=== PATIENT | female | born 1960 | race Caucasian/White ===

== ENCOUNTER 2023-03-06 14:44 | Outpatient (OUT) | payer OTHER, SELFPAY ==
--- NOTE | 2023-03-06 15:10 | XR_ITS ---
[address] [address] Patient Name: JOSH HANKINS MRN: [id number] date: 1960 Sex: F Assigned Patient Location: [facility] Current Patient Location: Accession/Order Number: [id number] Exam Date: 03/06/2023 15:02 Report Date: 03/07/2023 05:52 At the request of: ADAM MCKEON Procedure: XR knee RT 3V PROCEDURE: XR knee RT 3V COMPARISON: None. HISTORY: Right knee joint pain M25.561 FINDINGS: BONES:No acute fracture or dislocation. Moderate tricompartmental osteoarthropathy with joint space narrowing and marginal osteophyte formation most significant in the medial compartment SOFT TISSUES:Negative. No visible soft tissue swelling. EFFUSION:Small suprapatellar joint effusion OTHER: Negative. IMPRESSION: Osteoarthritis with small joint effusion Electronically authenticated by: RASHID CANTRELL Date: 03/07/2023 05:52
== END 2023-03-06 14:45 | disposition home or self-care (01) ==
PROVIDERS: PCP Family Medicine; Visit Provider Family Medicine
DX: M25.561 Pain in right knee (principal); M17.11 Unilateral primary osteoarthritis, right knee; M25.461 Effusion, right knee
CPT/HCPCS: 73562

== ENCOUNTER 2023-08-12 12:58 | Outpatient (OUT) | payer OTHER, SELFPAY ==
[2023-08-12 13:45] LABS: Estimated Average Glucose 169 mg/dL; Glycohemoglobin A1C 7.5 % (4.5-6.2)
== END 2023-08-12 12:59 | disposition home or self-care (01) ==
LOC: LAB 13:00
PROVIDERS: PCP Family Medicine; Visit Provider Family Medicine
DX: E11.65 Type 2 diabetes mellitus with hyperglycemia (principal)
CPT/HCPCS: 36415; 83036

== ENCOUNTER 2023-09-06 13:53 | Outpatient (OUT) | payer OTHER, SELFPAY ==
--- NOTE | 2023-09-06 13:55 | MM_ITS ---
Patient Name: JOSH HANKINS MR#: [id number] : 1960 Exam Date: 09/06/2023 Ordering Doctor: DR Jaron Foote . RADIOLOGY REPORT PROCEDURE: MM TOMOSYNTHESIS SCREENING BI COMPARISON: MG MAMM SCREEN 3D SUDAR[facility]AN CAD, 05/29/2021. MG MAMM SCREEN 3D SUDARSHAN CAD, 08/07/2022. INDICATIONS: screening Calculator Name NCI Breast Cancer Risk Assessment Tool 5 Year Breast Cancer Risk 1.10% Lifetime Breast Cancer Risk 5.00% Personal Breast Cancer No Personal Ovarian Cancer No Treatments None Family Cancers Mother with uterine cancer at age 37; Grandmother-maternal with colon cancer at age 84. LOCATION: [facility] BREAST COMPOSITION: Heterogeneously dense,which may obscure small masses. FINDINGS: DIAGNOSTIC CATEGORY 0--INCOMPLETE: NEED ADDITIONAL IMAGING EVALUATION. Scattered benign-appearing calcifications are present. Scattered benign-appearing lymph nodes are present. RIGHT BREAST: No significant suspicious finding. LEFT BREAST: Interval increase in a cluster of ill-defined microcalcifications upper inner quadrant, mid breast. Spot magnification required. RECOMMENDATIONS: ADDITIONAL MAMMOGRAPHIC VIEWS REQUIRED: LEFT BREAST - spot magnification PLEASE NOTE: A NORMAL MAMMOGRAM DOES NOT EXCLUDE THE POSSIBILITY OF BREAST CANCER. A CLINICALLY SUSPICIOUS PALPABLE LUMP SHOULD BE BIOPSIED. Dictated by: Julian Tang MD on 09/06/2023 at 14:42 Approved by: Julian Tang MD on 09/06/2023 at 14:44
--- OUTSIDE RECORDS SUMMARY | 2023-09-06 13:58 | XMS_ITS | CCD ---
Author Name Unknown Address [address] [place] [address] Organization [facility] Care Team Providers Care Precision Grinder Name Role Phone SYEDA, ELENITA W Unavailable Unavailable SYEDA, ELENITA W Unavailable Unavailable SYEDA, ELENITA W Unavailable Unavailable SYEDA, ELENITA W Unavailable Unavailable SYEDA, ELENITA W Unavailable Unavailable SYEDA, ELENITA W Unavailable Unavailable SYEDA, ELENITA W Unavailable Unavailable WEST, DR RASHID Bledsoe Consulting Unavailable NADERER, DR ADAM Day Primary Care Unavailable NADERER, DR ADAM Day Admitting Unavailable NADERER, DR ADAM Day Attending Unavailable NADERER, DR ADAM Day Consulting Unavailable NADERER, DR ADAM Day Consulting Unavailable NADERER, DR ADAM Day Primary Care Unavailable NADERER, DR ADAM Day Admitting Unavailable NADERER, DR ADAM Day Attending Unavailable NADERER, DR ADAM Day Consulting Unavailable NADERER, DR ADAM Day Primary Care Unavailable NADERER, DR ADAM Day Admitting Unavailable NADERER, DR ADAM Day Attending Unavailable NASHUA, DR RASHID Bledsoe Consulting Unavailable NADERER, DR ADAM Day Primary Care Unavailable NADERER, DR ADAM Day Admitting Unavailable NADERER, DR ADAM Day Attending Unavailable NADERER, DR ADAM Day Consulting Unavailable NADERER, DR ADAM Day Attending Unavailable NADERER, DR ADAM Day Consulting Unavailable NADERER, DR ADAM Day Primary Care Unavailable NADERER, DR ADAM Day Admitting Unavailable Allergies Allergy Classification Reported Allergen(s) Allergy Type Date of Onset Reaction(s) Facility (2 sources) Penicillins; Translations: [PENICILLINS] Propensity to adverse reactions to drug (disorder) 7 [facility]OF [facility] Other [place] [facility] (1 source) Penicillin Drug Allergy [facility] Problems Active Problems Problem Classification Problem Date Documented Da te Episodic/Chronic Diabetes mellitus with complications (4 sources) Type 2 diabetes mellitus with hyperglycemia; Translations: [TYPE 2 DM W/HYPERGLYCEMIA] Onset: 07-18-2022 Chronic Past or Other Problems Problem Classification Problem Date Documented Da te Episodic/Chronic Other connective tissue disease (1 source) Peroneal tendinitis, left leg; Translations: [Peroneal tendinitis, left leg] Onset: 09-01-2017 Episodic Other connective tissue disease (4 sources) Pain in left foot; Translations: [PAIN IN LEFT FOOT] Onset: 01-18-2022 Episodic Other screening for suspected conditions (not mental disorders or infectious disease) (4 sources) Encounter for screening mammogram for malignant neoplasm of breast; Translations: [ENC SCR MAMMO MALIG NEOPLASM BREAST] Onset: 08-07-2022 Episodic Residual codes; unclassified (1 source) Family history of malignant neoplasm of digestive organs; Translations: [FAM HX MALIG NEOPLASM DIGESTIV ORGN] Onset: 08-11-2022 Episodic Residual codes; unclassified (1 source) Family history of malignant neoplasm of other organs or systems; Translations: [FAM HX MALIG NEOPLASM OTH ORGN/SYS] Onset: 08-11-2022 Episodic Results Test Name Value Interpretation Reference Range Facility CBC AUTO DIFFon 01-15-2023 BASO # 0.0 103/ul Normal 0.0-0.1 [facility] Comment on above: Performed By: #### C BC #### [facility] [address] [place] [address] Dr. Angelo Ballesteros Basophils/100 WBC (Bld) 0.1 % Critically low 0.2-2.0 [facility] Comment on above: Performed By: #### C BC #### [facility] [address] [place] [address] Dr. Angelo Ballesteros EO # 0.0 103/ul Normal 0.0-0.7 [facility] Comment on above: Performed By: #### C BC #### [facility] [address] [place] [address] Dr. Angelo Ballesteros Eosinophils/100 WBC (Bld) 0.0 % Critically low 0.9-7.0 [facility] Comment on above: Performed By: #### C BC #### [facility] [address] [place] [address] Dr. Angelo Ballesteros Erythrocyte distribution width (RBC) [Ratio] 13.3 % Normal 11.0-15.0 [facility] Comment on above: Performed By: #### C BC #### [facility] [address] [place] [address] Dr. Angelo Ballesteros Hematocrit (Bld) [Volume fraction] 44.3 % Normal 36.0-48.0 [facility] Comment on above: Performed By: #### C BC #### [facility] [address] [place] [address] Dr. Angelo Ballesteros Hemoglobin (Bld) [Mass/Vol] 14.4 g/dL Normal 12.0-16.0 [facility] Comment on above: Performed By: #### C BC #### [facility] [address] [place] [address] Dr. nAgelo Ballesteros IG # 0.02 10e3/ul Normal 0.00-0.03 [facility] Comment on above: Performed By: #### C BC #### [facility] [address] [place] [address] Dr. Angelo Ballesteros IG % 0.3 % Normal 0.0-0.5 [facility] Comment on above: Performed By: #### C BC #### [facility] [address] [place] [address] Dr. Angelo Ballesteros LYMPH # 3.3 103/ul Normal 1.2-3.8 [facility] Comment on above: Performed By: #### C BC #### [facility] [address] [place] [address] Dr. Angelo Ballesteros Lymphocytes/100 WBC (Bld) 41.8 % Normal 20.5-60.0 [facility] Comment on above: Performed By: #### C BC #### [facility] [address] [place] [address] Dr. Angelo Ballesteros MANUAL DIFF REQ NO Normal [facility] Comment on above: Performed By: #### C BC #### [facility] [address] [place] [address] Dr. Angelo Ballesteros MCH (RBC) [Entitic mass] 30.1 pg Normal 26.7-34.0 [facility] Comment on above: Performed By: #### C BC #### [facility] [address] [address] [address] Angelo Ballesteros MCHC (RBC) [Mass/Vol] 32.5 g/dL Normal 29.9-35.2 [facility] Comment on above: Performed By: #### C BC #### [facility] [address] [address] [address] Angelo Ballesteros MCV (RBC) [Entitic vol] 92.5 fL Normal 81.0-99.0 [facility] Comment on above: Performed By: #### C BC #### [facility] [address] [place] [address] Dr. Angelo Ballesteros MONO # 0.6 103/ul Normal 0.3-0.8 [facility] Comment on above: Performed By: #### C BC #### [facility] [address] [place] [address] Dr. Angelo Ballesteros Monocytes/100 WBC (Bld) 7.1 % Normal 1.7-12.0 [facility] Comment on above: Performed By: #### C BC #### [facility] [address] [place] [address] Dr. Angelo Ballesteros NEUT # 4.1 103/ul Normal 1.4-6.5 [facility] Comment on above: Performed By: #### C BC #### [facility] [address] [place] [address] Dr. Angelo Ballesteros Neutrophils/100 WBC (Bld) 50.7 % Normal 43.0-75.0 [facility] Comment on above: Performed By: #### C BC #### [facility] [address] [address] [address] Angelo Ballesteros Platelet mean volume (Bld) [Entitic vol] 10.6 fL Normal 9.5-13.5 [facility] Comment on above: Performed By: #### C BC #### [facility] [address] [place] [address] Dr. Angelo Ballesteros PLT 294 103/ul Normal 150-450 [facility] Comment on above: Performed By: #### C BC #### [facility] [address] [place] [address] Dr. Angelo Ballesteros RBC 4.79 106/ul Normal 4.20-5.40 [facility] Comment on above: Performed By: #### C BC #### [facility] [address] [place] [address] Dr. Angelo Ballesteros WBC 8.0 103/ul Normal 4.0-11.0 [facility] Comment on above: Performed By: #### C BC #### [facility] [address] [place] [address] Dr. Angelo Ballesteros GLYCOHEMOGLOBIN A1Con 2022 ADA RECOMMENDATION SEE BELOW Normal [facility] Comment on above: Result Comment: ADA RECOMMENDED LIMIT 4.0 - 6.0 ADA THERAPEUTIC TARGET < 7.0 ACTION SUGGESTED > 7.0 Performed By: #### A 1C #### [facility] [address] [place] [address] Dr. Angelo Ballesteros Glucose [Mass/Vol] 160 mg/dL Normal [facility] Comment on above: Performed By: #### A 1C #### [facility] [address] [place] [address] Dr. Angelo Ballesteros HbA1c (Bld) [Mass fraction] 7.2 % Critically high 4.5-6.2 [facility] Comment on above: Performed By: #### A 1C #### [facility] [address] [place] [address] Dr. Angelo Ballesteros LIPID PROFILEon 01-15-2023 CHOL-HDL RATIO NORM SEE BELOW Normal [facility] Comment on above: Result Comment: 3.3 - 4.4 LOW RISK 4.4 - 7.1 AVERAGE RISK 7.1 - 11.0 MODERATE RISK >11.0 HIGH RISK Performed By: #### T SH, LIVER, BMP, LIPID #### [facility] [address] [place] [address] Dr. Angelo Ballesteros Cholesterol [Mass/Vol] 219 mg/dL Critically high <=200 [facility] Comment on above: Performed By: #### T SH, LIVER, BMP, LIPID #### [facility] [address] [address] [address] Angelo Ballesteros Cholesterol in HDL [Mass/Vol] 41 mg/dL Normal 40-60 [facility] Comment on above: Performed By: #### T SH, LIVER, BMP, LIPID #### [facility] [address] [address] [address] Angelo Ballesteros Cholesterol in LDL [Mass/Vol] 100.6 mg/dL Normal [facility] Comment on above: Performed By: #### T SH, LIVER, BMP, LIPID #### [facility] [address] [address] [address] Angelo Ballesteros Cholesterol.total/ Cholesterol in HDL [Mass ratio] 5.3 {ratio} Normal [facility] Comment on above: Performed By: #### T SH, LIVER, BMP, LIPID #### [facility] [address] [address] [address] Angelo Ballesteros HDL NORMAL > or = 60 mg/dl - LO W CARDIOVASCULAR RISK <40 mg/dl - HIGH CARDIOVASCULAR RISK Normal [facility] Comment on above: Performed By: #### T SH, LIVER, BMP, LIPID #### [facility] [address] [address] [address] Angelo Ballesteros LDL CALC NORMAL SEE BELOW Normal [facility] Comment on above: Result Comment: <100 mg/dl OPTIMAL 100 - 129 mg/dl NEAR OR ABOVE OPTIMAL 130 - 159 mg/dl BORDERLINE HIGH 160 - 189 mg/dl HIGH >190 mg/dl VERY HIGH Performed By: #### T SH, LIVER, BMP, LIPID #### [facility] [address] [address] [address] Angelo Ballesteros Triglyceride [Mass/Vol] 387 mg/dL Critically high <=150 [facility] Comment on above: Performed By: #### T SH, LIVER, BMP, LIPID #### [facility] [address] [address] [address] Angelo Ballesteros VLDL CALC 77.4 mg/dL Normal [facility] Comment on above: Performed By: #### T SH, LIVER, BMP, LIPID #### [facility] [address] [address] [address] Angelo Ballesteros LIVER PROFILEon 01-15-2023 Albumin [Mass/Vol] 3.7 g/dL Normal 3.4-5.0 [facility] Comment on above: Performed By: #### T SH, LIVER, BMP, LIPID #### [facility] [address] [address] [address] Angelo Ballesteros Albumin/Globulin [Mass ratio] 1.1 {ratio} Normal [facility] Comment on above: Performed By: #### T SH, LIVER, BMP, LIPID #### [facility] [address] [address] [address] Angelo Ballesteros ALP [Catalytic activity/Vol] 64 U/L Normal 46-116 [facility] Comment on above: Performed By: #### T SH, LIVER, BMP, LIPID #### [facility] [address] [address] [address] Angelo Ballesteros ALT [Catalytic activity/Vol] 24 U/L Normal 14-59 [facility] Comment on above: Performed By: #### T SH, LIVER, BMP, LIPID #### [facility] [address] [address] [address] Angelo Ballesteros AST [Catalytic activity/Vol] 17 U/L Normal 15-37 [facility] Comment on above: Performed By: #### T SH, LIVER, BMP, LIPID #### [facility] [address] [address] [address] Angelo Ballesteros BILI, CONJUGATED 0.1 mg/dL Normal 0.0-0.2 [facility] Comment on above: Performed By: #### T SH, LIVER, BMP, LIPID #### [facility] [address] [address] [address] Angelo Ballesteros Bilirubin [Mass/Vol] 0.3 mg/dL Normal 0.2-1.0 [facility] Comment on above: Performed By: #### T SH, LIVER, BMP, LIPID #### [facility] [address] [address] [address] Angeol Ballesteros Globulin (S) [Mass/Vol] 3.3 g/dL Normal [facility] Comment on above: Performed By: #### T SH, LIVER, BMP, LIPID #### [facility] [address] [address] [address] Angelo Ballesteros Protein [Mass/Vol] 7.0 g/dL Normal 6.4-8.2 [facility] Comment on above: Performed By: #### T SH, LIVER, BMP, LIPID #### [facility] [address] [address] [address] Angelo Ballesteros PROF CHEM 8 (BAS METB)on Anion gap [Moles/Vol] 13.7 mmol/L Normal [facility] Comment on above: Performed By: #### T SH, LIVER, BMP, LIPID #### [facility] [address] [place] [address] Dr. Angelo Ballesteros Calcium [Mass/Vol] 8.4 mg/dL Critically low 8.5-10.1 [facility] Comment on above: Performed By: #### T SH, LIVER, BMP, LIPID #### [facility] [address] [place] [address] Dr. Angelo Ballesteros Chloride [Moles/Vol] 105 mmol/L Normal 98-107 [facility] Comment on above: Performed By: #### T SH, LIVER, BMP, LIPID #### [facility] [address] [place] [address] Dr. Angelo Ballesteros CO2 [Moles/Vol] 27.0 mmol/L Normal 21.0-32.[address] [facility] Comment on above: Performed By: #### T SH, LIVER, BMP, LIPID #### [facility] [address] [place] [address] Dr. Angelo Ballesteros Creatinine [Mass/Vol] 1.01 mg/dL Normal 0.55-1.02 [facility] Comment on above: Performed By: #### T SH, LIVER, BMP, LIPID #### [facility] [address] [place] [address] Dr. Angelo Ballesteros EGFR-AF CONGOLESE >60 Normal >=[address] [facility] Comment on above: Performed By: #### T SH, LIVER, BMP, LIPID #### [facility] [address] [address] [address] Angelo Ballesteros EGFR-NON AF CONGOLESE 56 mL/min/1.73m2 Critically low >=60 [facility] Comment on above: Performed By: #### T SH, LIVER, BMP, LIPID #### [facility] [address] [address] [address] Angelo Ballesteros Glucose [Mass/Vol] 109 mg/dL Critically high 74-106 [facility] Comment on above: Performed By: #### T SH, LIVER, BMP, LIPID #### [facility] [address] [address] [address] Angelo Ballesteros Potassium [Moles/Vol] 3.7 mmol/L Normal 3.5-5.1 [facility] Comment on above: Performed By: #### T SH, LIVER, BMP, LIPID #### [facility] [address] [address] [address] Angelo Ballesteros Sodium [Moles/Vol] 142 mmol/L Normal 136-145 [facility] Comment on above: Performed By: #### T SH, LIVER, BMP, LIPID #### [facility] [address] [address] [address] Angelo Ballesteros Urea nitrogen [Mass/Vol] 11.0 mg/dL Normal 7.0-18.0 [facility] Comment on above: Performed By: #### T SH, LIVER, BMP, LIPID #### [facility] [address] [place] [address] Dr. Angelo Ballesteros Urea nitrogen/Creatinin e [Mass ratio] 10.9 mg/mg Normal [facility] Comment on above: Performed By: #### T SH, LIVER, BMP, LIPID #### [facility] [address] [address] [address] Angelo Ballesteros TSHon 01-15-2023 TSH 1.845 uIU/mL Normal 0.358-3.[address] [facility] Comment on above: Performed By: #### T SH, LIVER, BMP, LIPID #### [facility] [address] [place] [address] Dr. Angelo Ballesteros MG MAMM SCREEN 3D SUDARSHAN CADon 08-07-2022 MG MAMM SCREEN 3D SUDARSHAN CAD Patient: MARYBETH VALDEZ Exam Date: 08/07/2022 : 1960 Gender:F Ordering : DR ADAM MCKEON . Admission #: [id number] Family : Order #: [id number] CLICK HERE TO VIEW EXAM RADIOLOGY REPORT PROCEDURE: MAMMOGRAM SCREENING 3D BILATERAL CAD COMPARISON: MG MAMM SCREEN 3D SUDARSHAN CAD, 05/13/2020. MG MAMM SCREEN 3D SUDARSHAN CAD, 05/29/2021. INDICATIONS: Screening mammography Calculator Name NCI Breast Cancer Risk Assessment Tool 5 Year Breast Cancer Risk 1.10% Lifetime Breast Cancer Risk 5.20% Personal Breast Cancer No Personal Ovarian Cancer No Treatments None Family Cancers Mother with uterine cancer at age 37; Grandmother-maternal with colon cancer at age 84. LOCATION: [facility] BREAST COMPOSITION: Heterogeneously dense,which may obscure small masses. FINDINGS: DIAGNOSTIC CATEGORY 2--BENIGN FINDING. NO CHANGE FROM COMPARISON. Scattered benign-appearing nodules are present. Scattered benign-appearing calcifications are present. Scattered benign-appearing lymph nodes are present. RIGHT BREAST: No significant suspicious finding. LEFT BREAST: No significant suspicious finding. Stable ill-defined nodule with calcifications 12 o'clock mid breast RECOMMENDATIONS: ROUTINE MAMMOGRAM AND CLINICAL EVALUATION IN 12 MONTHS. PLEASE NOTE: A NORMAL MAMMOGRAM DOES NOT EXCLUDE THE POSSIBILITY OF BREAST CANCER. A CLINICALLY SUSPICIOUS PALPABLE LUMP SHOULD BE BIOPSIED. Dictated by: Rashid Cantrell MD on 08/07/2022 at 15:44 Approved by: Rashid Cantrell MD on 08/07/2022 at 15:46 Normal [facility] GLYCOHEMOGLOBIN A1Con 2021 ADA RECOMMENDATION SEE BELOW Normal [facility] Comment on above: Result Comment: ADA RECOMMENDED LIMIT 4.0 - 6.0 ADA THERAPEUTIC TARGET < 7.0 ACTION SUGGESTED > 7.0 Performed By: #### A 1C #### [facility] [address] [address] [address] Angelo Ballesteros Glucose [Mass/Vol] 197 mg/dL Normal [facility] Comment on above: Performed By: #### A 1C #### [facility] [address] [address] [address] Angelo Ballesteros HbA1c (Bld) [Mass fraction] 8.5 % Critically high 4.5-6.2 [facility] Comment on above: Performed By: #### A 1C #### [facility] [address] [address] [address] Angelo Ballesteros GLYCOHEMOGLOBIN A1Con 2021 ADA RECOMMENDATION SEE BELOW Normal [facility] Comment on above: Result Comment: ADA RECOMMENDED LIMIT 4.0 - 6.0 ADA THERAPEUTIC TARGET < 7.0 ACTION SUGGESTED > 7.0 Performed By: #### A 1C #### [facility] [address] [address] [address] Angelo Ballesteros Glucose [Mass/Vol] 194 mg/dL Normal [facility] Comment on above: Performed By: #### A 1C #### [facility] [address] [address] [address] Angelo Ballesteros HbA1c (Bld) [Mass fraction] 8.4 % Critically high 4.5-6.2 [facility] Comment on above: Performed By: #### A 1C #### [facility] [address] [address] [address] Angelo Ballesteros Initial Visit (Pain Medicine )on 07-01-2019 Initial Visit (Pain Medicine) Chief Complaint Ankle Pain left ankle pain...Surgery in 2017 for fractured ankle..Has had ankle pain for past 4 years x rays april 2019 PT done Summer [address] Daphne Hameed History of Present Illness On a scale of 0 to 10, the patient rates the pain at 8. Pain Location: and l ankle. Pain Quality: Aching and Sharp. Timing/Duration: Constant. Exacerbating Factors: motion and weightbearing. Alleviating Factors: Cold Therapy. The patient is being seen for a consultation regarding and perineal tendonitis back pain. The etiology is perineal ten. This condition is injury related. The injury occurred at home. Since the last pain clinic visit the patient was seen by a primary care provider. Pain scores include a current pain level of 8/10, an average pain level of 7/10 and a minimum pain level of 4/10. Original fracture of the left ankle happen in 2014 was treated conservatively for 6 month in a cast and then the patient was operated on in 2017 twice on the left ankle started to surgery the patient continued to have a significant amount of pain in the left ankle pain is localized around the lateral malleolus with tightness from the midshaft of the leg down to the toes and describe some swelling around the left foot without any changes in coloration scribing some hypersensitivity to a simple touch around the lateral aspect of her ankle and foot tried on physical therapy without any significant improvement she still uses a TENS unit without any significant improvement she wears compression stockings without benefit doing cupping without any significant improvement was tried on gabapentin without any significant improvement and Motrin without any significant improvement. Rating her pain at the level of 7 out of 10. Currently the patient is on tramadol 50 mg averaging 3 or 4 pills in a week There are no spiritual/cultural practices/values/needs that are important to know Initial Fall Risk Screening: MARYBETH has fallen in the last 6 months. She has fallen due to lost balance carrying stack of TV tables. Her fall resulted in the following injury: sprained toes. She does not need assistance with sitting, standing or walking. Does not need assistance walking in her home. She does not need assistance in an unfamiliar setting. Advance directives: Living Will: No living will on file. Healthcare POA: No healthcare proxy on file. Domestic Violence Screen: Does not feel threatened or abused physically, emotionally or sexually. Do you feel UNSAFE? The patient feels safe in the home. Depression/Suicide Screening: During the past 2 weeks, the patient has not felt down, depressed or hopeless. During the past 2 weeks, the patient has not felt little interest or pleasure in doing things. She has no thoughts of harming self. She has not had thoughts of harming others. Nutrition Screening: In the past month, there was not a day when I or anyone in my family went hungry because there was not enough food. Patient Education: The patient denies that they or the person with them has problems with hearing, speaking, seeing, moving around or learning Review of Systems 12 Systems have been reviewed as follows. Constitutional: Fever, weight gain, weight loss, appetite change, night sweats, fatigue, chills. Eyes : blurry, double vision, vision, loss, tearing, redness, pain, sensitivity to light, glaucoma. Ears, nose, mouth, and throat: Hearing loss, ringing in the ears, ear pain, nasal congestion, nasal drainage, nosebleeds, mouth, throat, irritation tooth problem. Cardiovascular :chest pain, pressure, heart tracing,palpitations , sweating, leg swelling, high or low blood pressure Pulmonary: Cough, yellow or green sputum, blood and sputum, shortness of breath, wheezing Gastrointestinal: Nausea, vomiting, diarrhea, constipation, pain, blood in stool, or vomitus, heartburn, difficulty swallowing Genitourinary: incontinence, abnormal bleeding, abnormal discharge, urinary frequency, urinary hesitancy, pain, impotence sexual problem, infection, urinary retention Musculoskeletal: Pain, stiffness, joint, redness or warmth, arthritis, back pain, weakness, muscle wasting, sprain or fracture Neuro: Weight weakness, dizziness, change in voice, change in taste change in vision, change in hearing, loss, or change of sensation, trouble walking, balance problems coordination problems, shaking, speech problem Endocrine , cold or heat intolerance, blood sugar problem, weight gain or loss missed periods hot flashes, sweats, change in body hair, change in libido, increased thirst, increased urination Heme/lymph: Swelling, bleeding, problem anemia, bruising, enlarged lymph nodes Allergic/immunologic: H. plus nasal drip, watery itchy eyes, nasal drainage, immunosuppressed The above, were reviewed and noted negative except as noted. Past Medical History History of depression (V11.8) (Z86.59) History of fibromyalgia (V13.59) (Z87.39) History of hypertension (V12.59) (Z86.79) History of mitral valve prolapse (V12.59) (Z86.79) Family History Family history of cardiac disorder (V17.49) (Z82.49) Family history of hypertension (V17.49) (Z82.49) Family history of malignant neoplasm (V16.9) (Z80.9) Social History Social alcohol use (Z78.9) Allergies Penicillins Recorded By: Sade Vasquez; 07/01/2019 1:43:49 PM Current Meds ALPRAZolam 0.5 MG Oral Tablet; Therapy: (Recorded:01Jul2019) to Recorded Dispense: 0 Days ; #: Sufficient; Refill: 0; SYDNIE = N; Record; Last Updated By: Sade Vasquez; 07/01/2019 1:43:49 PM Ambien 10 MG Oral Tablet; Therapy: (Recorded:01Jul2019) to Recorded Dispense: 0 Days ; #: Sufficient; Refill: 0; SYDNIE = N; Record; Last Updated By: Sade Vasquez; 07/01/2019 1:43:49 PM busPIRone HCl - 15 MG Oral Tablet; Therapy: (Recorded:01Jul2019) to Recorded Dispense: 0 Days ; #: Sufficient; Refill: 0; SYDNIE = N; Record; Last Updated By: Sade Vasquez; 07/01/2019 1:43:49 PM cloNIDine HCl - 0.2 MG Oral Tablet; Therapy: (Recorded:01Jul2019) to Recorded Dispense: 0 Days ; #: Sufficient; Refill: 0; SYDNIE = N; Record; Last Updated By: Sade Vasquez; 07/01/2019 1:43:49 PM Effexor 75 MG TABS; Therapy: (Recorded:01Jul2019) to Recorded Dispense: 0 Days ; #: Sufficient; Refill: 0; SYDNIE = N; Record; Last Updated By: Sade Vasquez; 07/01/2019 1:43:49 PM hydroCHLOROthiazide 25 MG Oral Tablet; Therapy: (Recorded:01Jul2019) to Recorded Dispense: 0 Days ; #: Sufficient; Refill: 0; SYDNIE = N; Record; Last Updated By: Sade Vasquez; 07/01/2019 1:43:49 PM Metoprolol Tartrate 100 MG Oral Tablet; Therapy: (Recorded:01Jul2019) to Recorded Dispense: 0 Days ; #: Sufficient; Refill: 0; SYDNIE = N; Record; Last Updated By: Sade Vasquez; 07/01/2019 1:43:49 PM traMADol HCl - 50 MG Oral Tablet; Therapy: (Recorded:01Jul2019) to Recorded Dispense: 0 Days ; #: Sufficient; Refill: 0; SYDNIE = N; Record; Last Updated By: Sade Vasquez; 07/01/2019 1:43:49 PM Zanaflex 4 MG Oral Tablet; Therapy: (Recorded:01Jul2019) to Recorded Dispense: 0 Days ; #: Sufficient; Refill: 0; SYDNIE = N; Record; Last Updated By: Sade Vasquez; 07/01/2019 1:43:49 PM Vitals Vital Signs Recorded: [id number] 01:29PM Jurjbtbnlkg11.4 F Heart Luhd327 Zdxuheelpxr43 Utyqewri850 Uniahctoa737 Height5 ft 7 in Ptvvmt348 lb BMI Sestzhqdic41.19 BSA Calculated1.93 Pain Scale8 Physical Exam Vital signs reviewed, documented in chart General: Appears well, does not look in any major distress Alert HEENT: Head atraumatic Eyes normal inspection PERRL Normal ENT inspection No signs of dehydration NECK: Normal inspection Range of motion within normal RESPIRATORY: No respiratory distress CVS: Heart rate and rhythm regular ABDOMEN/GI Soft Non-tender No distention No organomegaly BACK: Normal inspection, flexion and extension within normal limit no tenderness upon the palpation of the facet joint Si joints none tender to palpations EXTREMITIES: Tenderness on the left foot up on simple touch around the left malleolus with positive hypersensitivity and paresthesia described by the patient Acceptable ROM of the left ankle and foot some edema noted Power symmetrical , sensory examination preserved. 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 Provider Impressions 59 years old lady with history and physical examination supportive off left ankle pain with a mild CRPS of the left lower extremity The most applicable treatment options considered and discussed with the patient at this time, including a combination of physical therapy approaches, psychological/psychiatric approaches, pharmacologic management, interventional procedures and pain management surgeries (such as spinal cord stimulation and intrathecal pump placement. Risk of complications and/or morbidity and mortality is high given the acute and chronic pain may pose a threat to life and bodily functions if undertreated, poorly treated or with failure to maintain adequate and timely follow-up. Given the serious and fluctuating nature of pain (with extensive considerations whenever pain changes, worsens and even if it improves), there always remains the possibility of prolonged functional impairment requiring constant patient re-assessment and high level medical decision making. The amount and complexity of data reviewed is high given the patient labs, radiology reports and other tests were obtained and reviewed (summarized as applicable). Pertinent positive and negative findings were considered in medical decision making. The patient was counseled regarding diagnostic results, instructions for management, risk factor reductions, prognosis, patient and family education, impressions, risks and benefits of treatment options and importance of compliance with treatment. The level of clinical decision making in this office visit, is high, given the high risks of complications with the morbidity and mortality due to the fact that acute and chronic pain may pose a threat to the life and bodily function, if under treated, poorly treated, or with failure to maintain adequate treatment and timely medical follow up. Additionally over treatment has its own set of complications including overdosing on the pain medications and also the habit forming effects of the medications used to treat chronic painful conditions including therapeutic classes classified as dangerous medications. Given the serious and fluctuating nature of pain with extensive consideration for whenever pain changes, there is always the risk of prolonged functional impairment requiring close patient assessment and reassessment and high level medical decision making at every office visit. The amount and complexity of data reviewed is high given the patient clinical presentation, labs, [employer] data, radiology reports, and other tests as above. Pertinent data whether positive or negative were taken in consideration in the process of making this high level medical decision. Plan Knowing that the patient has tried and failed multiple modalities of treatment including the physical therapy the nonsteroidal anti-inflammatory the gabapentin the antidepressant and the tramadol and her pain has persisted I would recommend for the patient to have a lumbar sympathetic block performed under fluoroscopic guidance targeting the left lower extremity if the patient has a positive response at that time we'll could discuss with her further management of her condition with repeating the lumbar synthetic block on as needed or we could also consider her for the spinal cord stimulation if needed I would also consider the patient for a popliteal nerve block to be performed on the left side with consideration for popliteal radiofrequency ablation if she did not respond positively to the sympathetic block patient verbalized understanding and agreement with the plan and she will be followed up in the pain clinic on as-needed basis Patient Discussion/Summary 59 years old lady with history and physical examination supportive off left ankle pain with a mild CRPS of the left lower extremity Plan Knowing that the patient has tried and failed multiple modalities of treatment including the physical therapy the nonsteroidal anti-inflammatory the gabapentin the antidepressant and the tramadol and her pain has persisted I would recommend for the patient to have a lumbar sympathetic block performed under fluoroscopic guidance targeting the left lower extremity if the patient has a positive response at that time we'll could discuss with her further management of her condition with repeating the lumbar synthetic block on as needed or we could also consider her for the spinal cord stimulation if needed I would also consider the patient for a popliteal nerve block to be performed on the left side with consideration for popliteal radiofrequency ablation if she did not respond positively to the sympathetic block patient verbalized understanding and agreement with the plan and she will be followed up in the pain clinic on as-needed basis The above clinical summary has been dictated with voice recognition software. It has not been proofread for grammatical errors, typographical mistakes, or other semantic inconsistencies. Thank you for visiting our office today. It was our pleasure to take part in your healthcare. Please do not hesitate to contact the pain clinic after your visit with any questions or concerns at [phone] M-F 8-4 pm Signatures Electronically signed by : Mari Howe MD; Jul 01 2019 2:20PM EST (Author) [employer] 06-04-2018 CNOV Office Visit ([facility]) ----MARYBETH VALDEZ ([id number]) 1960 [facility] Time Provider Dsufffeeqb34/3/18 1:00 PM ELENITA CHENG During your visit today, we recorded the following information about you:Elenita Cheng MD 06/05/2018 5:06 PM Killian Valdez returns today to follow up left ankle she is now > 18 monthss/p left ankle peroneal tendon tenosynovectomy,?debridement of low-lying musclebelly peroneus brevis tendon,?peroneal tendon stabilization with deepening offibular groove and repair of superior peroneal retinaculum,?Debridement ofnonunion/loose body previous distal fibular avulsion fracture,Repair ofcalcaneofibular ligament, Zamora modification for ankle and subtalarstabilization with advancement of the inferior extensor retinaculum to fibularperiosteum,?Applicati on of XWRAP amniotic membrane graft?OR 12/25. She has beenusing lace up ankle brace without change. She continues to have pain along thelateral malleolus. She states her toes are painful. She is stretching, doinghome remedies. Feels like this is really not going to change. Frustrated abouther progress. Pain level 7/10Do you have a metal allergy?: NoCurrent Dx: (M25.572, G89.29) Chronic pain of left ankle (primary encounterdiagnosis)(M76.72) Peroneal tendinitis, left(M25.372) Instability of ankle, left?Injury:NoPt. Feels their overall condition is the same.Is the patient having any pain? Yes LOCATION: Left anklePAIN SCALE: 7 on a scale of 0-10PAIN CHARACTER: achingDURATION: (How long have you had the pain?) 18 monthsFREQUENCY: (How often does the pain occur?) occurs monthlyCurrent treatment plan includes: Weight Bearing Status: fullWeight bearing status:FullAmbulatory Aids:N/APhysical Therapy:NoHome Exercise Program: NoNSAIDS: Not takingPain medication: NoneActivity Levels: NormalPHYSICAL EXAM: left footPhysical examination reveals an alert and oriented patient who is in no acutedistress while sitting and is of normal mood and affect.There were no vitals taken for this visit.Gait Cycle: Normal Yes, Limp: none.Inspection: Alignment: neutralSymmetry: Swelling: yes. Redness: no. Ecchymosis: noEffusion: 0Palpation: Warmth: no, Tenderness: Tenderness is rather diffuseROM: Ankle- NormalFoot- Normal.Strength: 5Stability: Ligamentous instability: yesSpecialized Tests: negativeNeurologic Status: normal.Vascular Status: normalSkin: Incision: well healed, clean, dry and intact and there is no erythema ordrainage present.XRAYS: none todayDX: (M25.572, G89.29) Chronic pain of left ankle (primary encounter diagnosis)(M25.372) Instability of ankle, leftPlan: We had a very lengthy discussion concerning her current status and alloptions. I am worried. This affects the brace did not help her as realfinding. We have is recurrent instability to account for the amount of painthat she is having. She also couldn't initially complains of a tightness.Based on these findings. The only thing I could possibly offer her would be arevision Brostrom ligamentous stabilization procedure, which would make her even tighter and that seems to be a complaints. She has also. Therefore,elected to go ahead with a more rigid brace, a short ankle articulated AFO tosee whether or not stabilizing her greater eliminate her pain and if so, shemay consider revision procedure.HPI explored in detail with patient and edited as necessary.At the conclusion of the visit the patient voiced understanding and agreementwith the plan. The patient knows to call us or present to the nearest EmergencyDepartment if the patients pain increases.Patient knows how to reach us if there are any questions or problems.This note was partially generated using Jdguanjia voice recognition system, andthere may be some incorrect words, spellings, and punctuation that were notnoted in checking the note before saving.Elenita Cheng M.D.Referring Provider: SELF [[id number]]Allergies As of Date: 06/04/2018 Noted Allergy ReactionPENICILLINS 09/24/2016 2 - RashDate Reviewed: 06/04/2018Reviewed by: Malika Licona - Fully AssessedPrimary Visit Diagnosis:Chronic pain of left ankle [M25.572, G89.29] Other Visit Diagnosis:Instability of ankle, left [M25.372]Prescriptions as of 06/04/2018 Sig: ETODOLAC ER 500 MG TABLET,EXT* Take 1 tablet by mouth once d* TIZANIDINE 4 MG TABLET Take 4 mg by mouth three time* ZOLPIDEM 10 MG TABLET Take 10 mg by mouth at bedtim* ALPRAZOLAM 0.5 MG TABLET Take 0.5 mg by mouth as neede* CLONIDINE HCL 0.1 MG TABLET Take 0.1 mg by mouth twice da* ZYRTEC ORAL Take by mouth once daily. VENLAFAXINE 75 MG TABLET Take 75 mg by mouth three rusty*Problem List As Of Date 06/04/2018 Noted Resolved Peroneal tendinitis [M76.70] INVALID FOR* Chronic pain of left ankle [M25.572, G89.29] INVALID FOR* Peroneal tendinitis, left [M76.72] INVALID FOR* Instability of ankle, left [M25.372] INVALID FOR* Status:Closed by ELENITA CHENG MD on 06/05/18 Normal [facility] PROGRESSon 06-04-2018 Protein mass conc HNO ID: [id number] thor: Elenita Dickens: (none)Author Type: PhysicianType: Progress NotesFiled: 06/05/2018 5:06 PMNote Text:Marybeth Valdez returns today to follow up left ankle she is now > 18months s/p left ankle peroneal tendon tenosynovectomy,?debridement oflow-lying muscle belly peroneus brevis tendon,?peroneal tendonstabilization with deepening of fibular groove and repair of superiorperoneal retinaculum,?Debridement of nonunion/loose body previous distalfibular avulsion fracture,Repair of calcaneofibular ligament, Gouldmodification for ankle and subtalar stabilization with advancement of theinferior extensor retinaculum to fibular periosteum,?Application of XWRAPamniotic membrane graft?OR 12/25. She has been using lace up ankle bracewithout change. She continues to have pain along the lateral malleolus.She states her toes are painful. She is stretching, doing home remedies.Feels like this is really not going to change. Frustrated about herprogress. Pain level 7/10Do you have a metal allergy?: NoCurrent Dx: (M25.572, G89.29) Chronic pain of left ankle (primaryencounter diagnosis)(M76.72) Peroneal tendinitis, left(M25.372) Instability of ankle, left?Injury:NoPt. Feels their overall condition is the same.Is the patient having any pain? Yes LOCATION: Left anklePAIN SCALE: 7 on a scale of 0-10PAIN CHARACTER: achingDURATION: (How long have you had the pain?) 18 monthsFREQUENCY: (How often does the pain occur?) occurs monthlyCurrent treatment plan includes: Weight Bearing Status: fullWeight bearing status:FullAmbulatory Aids:N/APhysical Therapy:NoHome Exercise Program: NoNSAIDS: Not takingPain medication: NoneActivity Levels: NormalPHYSICAL EXAM: left footPhysical examination reveals an alert and oriented patient who is in noacute distress while sitting and is of normal mood and affect.There were no vitals taken for this visit.Gait Cycle: Normal Yes, Limp: none.Inspection: Alignment: neutralSymmetry: Swelling: yes. Redness: no. Ecchymosis: noEffusion: 0Palpation: Warmth: no, Tenderness: Tenderness is rather diffuseROM: Ankle- NormalFoot- Normal.Strength: 5Stability: Ligamentous instability: yesSpecialized Tests: negativeNeurologic Status: normal.Vascular Status: normalSkin: Incision: well healed, clean, dry and intact and there is noerythema or drainage present.XRAYS: none todayDX: (M25.572, G89.29) Chronic pain of left ankle (primary encounterdiagnosis)(M25.372) Instability of ankle, leftPlan: We had a very lengthy discussion concerning her current status andall options. I am worried. This affects the brace did not help her asreal finding. We have is recurrent instability to account for the amountof pain that she is having. She also couldn't initially complains of atightness. Based on these findings. The only thing I could possiblyoffer her would be a revision Brostrom ligamentous stabilizationprocedure, which would make her even tighter and that seems to be acomplaints. She has also. Therefore, elected to go ahead with a morerigid brace, a short ankle articulated AFO to see whether or notstabilizing her greater eliminate her pain and if so, she may considerrevision procedure.HPI explored in detail with patient and edited as necessary.At the conclusion of the visit the patient voiced understanding andagreement with the plan. The patient knows to call us or present to [facility] Department if the patients pain increases.Patient knows how to reach us if there are any questions or problems.This note was partially generated using Jdguanjia voice recognition system,and there may be some incorrect words, spellings, and punctuation thatwere not noted in checking the note before saving.Elenita Cheng M.D. [facility] CNOVon 04-30-2018 CNOV Office Visit ([place]) ----MARYBETH VALDEZ ([id number]) 1960 FDate Time Provider Department04/30/18 1:15 PM ELENITA CHENG During your visit today, we recorded the following information about you:Elenita Cheng MD 05/01/2018 6:15 AM SignedChdarnell Courtney returns today to follow up for left ankle, she is now 16months S/P left ankle peroneal tendon tenosynovectomy,?debridement of low-lyingmuscle belly peroneus brevis tendon,?peroneal tendon stabilization withdeepening of fibular groove and repair of superior peronealretinaculum,?Debride ment of nonunion/loose body previous distal fibularavulsion fracture,Repair of calcaneofibular ligament, Zamora modification forankle and subtalar stabilization with advancement of the inferior extensorretinaculum to fibular periosteum,?Application of XWRAP amniotic membrane graftOR 12/25, last seen in the office on 09/11. She states that she has continuedwith PT and HEP that Does not seem to help with her pain and swelling. Shestates that her ankle feels tight and by the end of the day that feeling goesthrough out her entire ankle and foot and pain follows this. Her pain is in thelateral foot and ankle 6/10 ache, throbbing tightness. She states that she hasnot had a day that she was pain free.Do you have a metal allergy?: NoCurrent Dx: 9 months s/pleft ankle peroneal tendon tenosynovectomy,?debridement of low-lying muscle belly peroneus brevis tendon,?peroneal tendon stabilizationwith deepening of fibular groove and repair of superior peronealretinaculum,?Debride ment of nonunion/loose body previous distal fibularavulsion fracture,Repair of calcaneofibular ligament, Zamora modification forankle and subtalar stabilization with advancement of the inferior extensorretinaculum to fibular periosteum,?Application of XWRAP amniotic membranegraft?with persistent discomfort to base of 5th metatarsal.Injury:NoPt. Feels their overall condition is worse.Is the patient having any pain? Yes LOCATION: left anklePAIN SCALE: 6 on a scale of 0-10PAIN CHARACTER: aching and throbbingDURATION: (How long have you had the pain?) 8 monthsFREQUENCY: (How often does the pain occur?) occurs constantlyCurrent treatment plan includes: Weight Bearing Status: fullWeight bearing status:FullAmbulatory Aids:N/APhysical Therapy:Completed course of therapyHome Exercise Program: YesNSAIDS: Not takingPain medication: NoneActivity Levels: NormalPHYSICAL EXAM: left anklePhysical examination reveals an alert and oriented patient who is in no acutedistress while sitting and is of normal mood and affect.There were no vitals taken for this visit.Gait Cycle: Normal Yes, Limp: none.Inspection: Alignment: neutralSymmetry: Swelling: yes. Redness: no. Ecchymosis: noEffusion: 0Palpation: Warmth: no, Tenderness: Diffuse tenderness laterally about theperoneal tendons. The distal fibula also subfibular region and sinus TarsiROM: Ankle- NormalFoot- Normal.Strength: 5, based on manual testing, but some pain inhibitionStability: Ligamentous instability: She feels a bit more lax on physicalexamination today with respect to her lateral ligament reconstructionSpecialized Tests: negativeNeurologic Status: normal.Vascular Status: normalSkin: Incision: well healed, clean, dry and intact and there is no erythema ordrainage present.XRAYS: see priorDX: (M25.572, G89.29) Chronic pain of left ankle (primary encounter diagnosis)(M76.72) Peroneal tendinitis, left(M25.372) Instability of ankle, leftPlan: Marybeth is improved since I last saw her, though he still do not feelshe is at her full potential. She still a bit frustrated with overall qualityof her ankle. She has better strength in her peroneals, and no significanttenderness, but diffusely along the lateral side. She is sensitive. Weregoing to try a lace up ankle support for the next 6 weeks and see that makes adifference. Possible reexploration if it doesn't help to improve her symptomsHPI explored in detail with patient and edited as necessary.At the conclusion of the visit the patient voiced understanding and agreementwith the plan. The patient knows to call us or present to the nearest EmergencyDepartment if the patients pain increases.Patient knows how to reach us if there are any questions or problems.This note was partially generated using Jdguanjia voice recognition system, andthere may be some incorrect words, spellings, and punctuation that were notnoted in checking the note before saving.Elenita Cheng M.D.Referring Provider: SELF [[id number]]Allergies As of Date: 04/30/2018 Noted Allergy ReactionPENICILLINS 09/24/2016 2 - RashDate Reviewed: 04/30/2018Reviewed by: Quin Savage - Fully AssessedReason for Visit: Follow Up [171] Cmt: left anklePrimary Visit Diagnosis:Chronic pain of left ankle [M25.572, G89.29] Other Visit Diagnoses:Peroneal tendinitis, left [M76.72] Instability of ankle, left [M25.372]Prescriptions as of 04/30/2018 Sig: ETODOLAC ER 500 MG TABLET,EXT* Take 1 tablet by mouth once d* TIZANIDINE 4 MG TABLET Take 4 mg by mouth three time* ZOLPIDEM 10 MG TABLET Take 10 mg by mouth at bedtim* ALPRAZOLAM 0.5 MG TABLET Take 0.5 mg by mouth as neede* CLONIDINE HCL 0.1 MG TABLET Take 0.1 mg by mouth twice da* ZYRTEC ORAL Take by mouth once daily. VENLAFAXINE 75 MG TABLET Take 75 mg by mouth three rusty*Problem List As Of Date 04/30/2018 Noted Resolved Peroneal tendinitis [M76.70] INVALID FOR* Chronic pain of left ankle [M25.572, G89.29] INVALID FOR* Status:Closed by ELENITA CHENG MD on 05/01/18 [facility] PROGRESSon 04-30-2018 Protein mass conc HNO ID: [id number] thor: Elenita ChengService: (none)Author Type: PhysicianType: Progress NotesFiled: 05/01/2018 6:15 AMNote Text:Marybeth Valdez returns today to follow up for left ankle, she is now 16months S/P left ankle peroneal tendon tenosynovectomy,?debridement oflow-lying muscle belly peroneus brevis tendon,?peroneal tendonstabilization with deepening of fibular groove and repair of superiorperoneal retinaculum,?Debridement of nonunion/loose body previous distalfibular avulsion fracture,Repair of calcaneofibular ligament, Gouldmodification for ankle and subtalar stabilization with advancement of theinferior extensor retinaculum to fibular periosteum,?Application of XWRAPamniotic membrane graft OR 12/25, last seen in the office on 09/11. Shestates that she has continued with PT and HEP that Does not seem to helpwith her pain and swelling. She states that her ankle feels tight and bythe end of the day that feeling goes through out her entire ankle and footand pain follows this. Her pain is in the lateral foot and ankle 6/10ache, throbbing tightness. She states that she has not had a day that shewas pain free.Do you have a metal allergy?: NoCurrent Dx: 9 months s/pleft ankle peroneal tendontenosynovectomy,?debri jeane of low-lying muscle belly peroneus brevistendon,?peroneal tendon stabilization with deepening of fibular groove andrepair of superior peroneal retinaculum,?Debridement of nonunion/loosebody previous distal fibular avulsion fracture,Repair of calcaneofibularligament, Zamora modification for ankle and subtalar stabilization withadvancement of the inferior extensor retinaculum to fibularperiosteum,?Applicati on of XWRAP amniotic membrane graft?with persistentdiscomfort to base of 5th metatarsal.Injury:NoPt. Feels their overall condition is worse.Is the patient having any pain? Yes LOCATION: left anklePAIN SCALE: 6 on a scale of 0-10PAIN CHARACTER: aching and throbbingDURATION: (How long have you had the pain?) 8 monthsFREQUENCY: (How often does the pain occur?) occurs constantlyCurrent treatment plan includes: Weight Bearing Status: fullWeight bearing status:FullAmbulatory Aids:N/APhysical Therapy:Completed course of therapyHome Exercise Program: YesNSAIDS: Not takingPain medication: NoneActivity Levels: NormalPHYSICAL EXAM: left anklePhysical examination reveals an alert and oriented patient who is in noacute distress while sitting and is of normal mood and affect.There were no vitals taken for this visit.Gait Cycle: Normal Yes, Limp: none.Inspection: Alignment: neutralSymmetry: Swelling: yes. Redness: no. Ecchymosis: noEffusion: 0Palpation: Warmth: no, Tenderness: Diffuse tenderness laterally about theperoneal tendons. The distal fibula also subfibular region and sinusTarsiROM: Ankle- NormalFoot- Normal.Strength: 5, based on manual testing, but some pain inhibitionStability: Ligamentous instability: She feels a bit more lax on physicalexamination today with respect to her lateral ligament reconstructionSpecialized Tests: negativeNeurologic Status: normal.Vascular Status: normalSkin: Incision: well healed, clean, dry and intact and there is noerythema or drainage present.XRAYS: see priorDX: (M25.572, G89.29) Chronic pain of left ankle (primary encounterdiagnosis)(M76.72) Peroneal tendinitis, left(M25.372) Instability of ankle, leftPlan: Marybeth is improved since I last saw her, though he still do notfeel she is at her full potential. She still a bit frustrated withoverall quality of her ankle. She has better strength in her peroneals,and no significant tenderness, but diffusely along the lateral side. Sheis sensitive. Were going to try a lace up ankle support for the next 6weeks and see that makes a difference. Possible reexploration if itdoesn't help to improve her symptomsHPI explored in detail with patient and edited as necessary.At the conclusion of the visit the patient voiced understanding andagreement with the plan. The patient knows to call us or [facility] if the patients pain increases.Patient knows how to reach us if there are any questions or problems.This note was partially generated using Jdguanjia voice recognition system,and there may be some incorrect words, spellings, and punctuation thatwere not noted in checking the note before saving.Elenita Cheng M.D. [facility] CNOVon 09-11-2017 CNOV Office Visit ([place]) ----MARYBETH VALDEZ ([id number]) 1960 FDate Time Provider Department09/11/17 1:15 PM ELENITA CHENG During your visit today, we recorded the following information about you:Elenita Cheng MD 09/11/2017 2:25 PM Killian Valdez returns today to follow up/discuss results of left foot MRIwhich was completed on 09/01. She is still concerned about the amount ofstiffness she still has. She states she has pain is about the 10.Do you have a metal allergy?: NoCurrent Dx: Patient with persistent pain in her foot with swelling. Pain islocalized to the base of the fifth metatarsal. Dissected previous peronealtendon issues in the pastInjury:NoPt. Feels their overall condition is better.Is the patient having any pain? Yes LOCATION: Left footPAIN SCALE: 4 on a scale of 0-10PAIN CHARACTER: achingDURATION: (How long have you had the pain?) 3 monthsFREQUENCY: (How often does the pain occur?) occurs constantlyCurrent treatment plan includes: Weight Bearing Status: fullWeight bearing status:FullAmbulatory Aids:N/APhysical Therapy:NoHome Exercise Program: NoNSAIDS: Other nonePain medication: NoneActivity Levels: NormalPHYSICAL EXAM: Left footPhysical examination reveals an alert and oriented patient who is in no acutedistress while sitting and is of normal mood and affect.There were no vitals taken for this visit.Gait Cycle: Normal Yes, Limp: none.Inspection: Alignment: neutralSymmetry: Swelling: no. Redness: no. Ecchymosis: noEffusion: 0Palpation: Warmth: no, Tenderness:Yes: Foot + tenderness over the base of the5th MTROM: Ankle- Normal.Strength: 5Stability: Ligamentous instability: noSpecialized Tests: negativeNeurologic Status: normal.Vascular Status: normalSkin: Incision: well healed, clean, dry and intact and there is no erythema ordrainage present.XRAYS: none todayMRI 09/01/2017IMPRESSION:Postsur gical changes along the inferior aspect of the lateral malleoluswith associated edema and marked attenuation of the calcaneofibular andanterior talofibular ligaments.Mild tenosynovitis peroneal tendons without discrete tear.Small 5 mm osteochondral lesion medial aspect talar dome, unchanged.DX: 9 months s/pleft ankle peroneal tendon tenosynovectomy,?debridement oflow-lying muscle belly peroneus brevis tendon,?peroneal tendon stabilizationwith deepening of fibular groove and repair of superior peronealretinaculum,?Debride ment of nonunion/loose body previous distal fibularavulsion fracture,Repair of calcaneofibular ligament, Zamora modification forankle and subtalar stabilization with advancement of the inferior extensorretinaculum to fibular periosteum,?Application of XWRAP amniotic membrane graftwith persistent discomfort to base of 5th metatarsal.Plan:-Discussed that the MRI did not show any abnormalities relating to her symptoms-Discussed that she needs to work on functional activities-Need to continue with strengthening-Discussed that there is no other surgical, non surgical treatment-Discussed that her current symptoms can be related to her fibromyalgia-All questions answered.-Follow up prn.HPI explored in detail with patient and edited as necessary.At the conclusion of the visit the patient voiced understanding and agreementwith the plan. The patient knows to call us or present to the nearest EmergencyDepartment if the patients pain increases.Patient knows how to reach us if there are any questions or problems.Liam Betancourt, DOFellTEACHING PHYSICIAN STATEMENT:I personally saw and evaluated the patient today. I personally obtained the keyand critical portions of the history and physical exam. I reviewed theresident's/fellow's documentation and discussed the patient with theresident/fellow. I agree with the resident's/fellow's medical decision-makingas documented.Gayla Scruggs M.D.Referring Provider: ELENITA CHENG [[id number]]Allergies As of Date: 09/11/2017 Noted Allergy ReactionPENICILLINS 09/24/2016 2 - RashDate Reviewed: 09/11/2017Reviewed by: Malika Licona - Fully AssessedReason for Visit: Results [95]Primary Visit Diagnosis:Chronic pain of left ankle [M25.572, G89.29]Prescriptions as of 09/11/2017 Sig: ETODOLAC ER 500 MG TABLET,EXT* Take 1 tablet by mouth once d* TIZANIDINE 4 MG TABLET Take 4 mg by mouth three time* ZOLPIDEM 10 MG TABLET Take 10 mg by mouth at bedtim* ALPRAZOLAM 0.5 MG TABLET Take 0.5 mg by mouth as neede* CLONIDINE HCL 0.1 MG TABLET Take 0.1 mg by mouth twice da* ZYRTEC ORAL Take by mouth once daily. VENLAFAXINE 75 MG TABLET Take 75 mg by mouth three rusty*Problem List As Of Date 09/11/2017 Noted Resolved Peroneal tendinitis [M76.70] INVALID FOR* Chronic pain of left ankle [M25.572, G89.29] INVALID FOR* Status:Closed by ELENITA CHENG MD on 09/11/17 [facility] PROGRESSon 09-11-2017 Protein mass conc HNO ID: [id number] thor: Elenita ChengService: (none)Author Type: PhysicianType: Progress NotesFiled: 09/11/2017 2:25 PMNote Text:Marybeth Valdez returns today to follow up/discuss results of left footMRI which was completed on 09/01. She is still concerned about the amountof stiffness she still has. She states she has pain is about the 10.Do you have a metal allergy?: NoCurrent Dx: Patient with persistent pain in her foot with swelling. Painis localized to the base of the fifth metatarsal. Dissected previousperoneal tendon issues in the pastInjury:NoPt. Feels their overall condition is better.Is the patient having any pain? Yes LOCATION: Left footPAIN SCALE: 4 on a scale of 0-10PAIN CHARACTER: achingDURATION: (How long have you had the pain?) 3 monthsFREQUENCY: (How often does the pain occur?) occurs constantlyCurrent treatment plan includes: Weight Bearing Status: fullWeight bearing status:FullAmbulatory Aids:N/APhysical Therapy:NoHome Exercise Program: NoNSAIDS: Other nonePain medication: NoneActivity Levels: NormalPHYSICAL EXAM: Left footPhysical examination reveals an alert and oriented patient who is in noacute distress while sitting and is of normal mood and affect.There were no vitals taken for this visit.Gait Cycle: Normal Yes, Limp: none.Inspection: Alignment: neutralSymmetry: Swelling: no. Redness: no. Ecchymosis: noEffusion: 0Palpation: Warmth: no, Tenderness:Yes: Foot + tenderness over the base ofthe 5th MTROM: Ankle- Normal.Strength: 5Stability: Ligamentous instability: noSpecialized Tests: negativeNeurologic Status: normal.Vascular Status: normalSkin: Incision: well healed, clean, dry and intact and there is noerythema or drainage present.XRAYS: none todayMRI 09/01/2017IMPRESSION:Postsur gical changes along the inferior aspect of the lateral malleoluswith associated edema and marked attenuation of the calcaneofibular andanterior talofibular ligaments.Mild tenosynovitis peroneal tendons without discrete tear.Small 5 mm osteochondral lesion medial aspect talar dome, unchanged.DX: 9 months s/pleft ankle peroneal tendon tenosynovectomy,?debridement oflow-lying muscle belly peroneus brevis tendon,?peroneal tendonstabilization with deepening of fibular groove and repair of superiorperoneal retinaculum,?Debridement of nonunion/loose body previous distalfibular avulsion fracture,Repair of calcaneofibular ligament, Gouldmodification for ankle and subtalar stabilization with advancement of theinferior extensor retinaculum to fibular periosteum,?Application of XWRAPamniotic membrane graft with persistent discomfort to base of 5thmetatarsal.Plan:-Discusse d that the MRI did not show any abnormalities relating to hersymptoms-Discussed that she needs to work on functional activities-Need to continue with strengthening-Discussed that there is no other surgical, non surgical treatment-Discussed that her current symptoms can be related to her fibromyalgia-All questions answered.-Follow up prn.HPI explored in detail with patient and edited as necessary.At the conclusion of the visit the patient voiced understanding andagreement with the plan. The patient knows to call us or [facility] if the patients pain increases.Patient knows how to reach us if there are any questions or problems.Liam Betancourt, FellowTEACHING PHYSICIAN STATEMENT:I personally saw and evaluated the patient today. I personally obtainedthe landaverde and critical portions of the history and physical exam. I reviewedthe resident's/fellow's documentation and discussed the patient with theresident/fellow. I agree with the resident's/fellow's medicaldecision-making as documented.Gayla Scruggs M.D. [facility] HEALTHon 09-01-2017 ALLIED HEALTH HNO ID: [id number] thor: Maurice Prieto) Dariusz Irizarry: RadiologyAuthor Type: TechnicianType: Allied HealthFiled: 09/01/2017 11:42 AMNote Text: Radiology Service Progress NotePATIENT NAME: Marybeth DunnN: [id number] OF SERVICE: September 01, 2017TIME: 11:30 AMPATIENT IDENTITY VERIFICATION COMPLETED USING TWO (2) METHODS: Patientconfirmed name verbally and Date of .PATIENT GENDER DATA: Female. status: : NoBreastfeeding status: NO.PATIENT RELEVANT IMPLANT DATA REVIEWED: YesRADIOLOGY DEPARTMENT: MR; Exam(s) Completed: Lower MSK: Ankle/Hind Foot,leftPERIPHERAL IV DATA: Not applicableSIGNED BY: Serena Colón 2016 11:30 AM [facility] MRI FOOT/TOES WO IVCON LTon 09-01-2017 MRI FOOT/TOES WO IVCON LT * * *Final Report* * *DATE OF EXAM: Sep 01 2017 11:43AM [facility] 0194 - MRI FOOT/TOES WO IVCON LT / REASON: Peroneal tendinitis, left leg * * * * Physician Interpretation * * * * MRI LEFT ANKLE/HINDFOOT WITHOUT CONTRASTHISTORY: Peroneal tendinitis, left leg. Left ankle peroneal tendon tenosynovectomy,?debridement of low-lying muscle belly peroneus brevis tendon,?peroneal tendon stabilization with deepening of fibular groove and repair of superior peroneal retinaculum,Debridement of nonunion/loose body previous distal fibular avulsion fracture.Repair of calcaneofibular ligament.Zamora modification for ankle and subtalar stabilization with advancement of the inferior extensor retinaculum to fibular periosteum.Application of XWRAP amniotic membrane graft on 12/25/2016.COMPARISON: 09/24/2016 ankle x-rays and 09/04/2016 MRITECHNIQUE: Multiplanar PD, T1 and T2 weighted images.RESULT:Ligaments: The calcaneofibular ligament appears attenuated with surrounding edema likely related to recent surgery and repair. The anterior talofibular ligament is also markedly attenuated. The posterior talofibular ligament along with the anterior posterior tibiofibular ligaments are intact. Deltoid and spring ligaments are intact.Peroneal tendons: There is fluid around the peroneal tendons which are otherwise intact. There are postsurgical changes involving the inferior portion of the peroneus brevis tendon related to previous debridement. Post surgical changes are also noted involving the posterior aspect of the lateral malleolus related to deepening of the fibular groove. Peroneal tendons remain intact.Additional tendons: Posterior tibial, flexor digitorum and flexor hallucis longus are within normal limits. Tibialis anterior and Achilles tendons are within normal limits.Bone/bone marrow: There is a small 5 mm osteochondral lesion medial aspect talar dome. This is not significant a change from the prior exam. Osseous structures are otherwise unremarkable.Other: Small amount of joint fluid tibiotalar and subtalar joints without synovitis. No plantar fasciitis. There is preservation of the fat signal within the sinus tarsi.IMPRESSION:Postsurgica l changes along the inferior aspect of the lateral malleolus with associated edema and marked attenuation of the calcaneofibular and anterior talofibular ligaments.Mild tenosynovitis peroneal tendons without discrete tear.Small 5 mm osteochondral lesion medial aspect talar dome, unchanged.Gas Shovel Operator: NIKITA Transcribe Date/Time: Sep 01 2017 12:12PDictated by : KELSIE VERNON MDThirolly examination was interpreted and the report reviewed and electronically signed by: KELSIE VERNON MD on Sep 01 2017 12:29PM [id number] [facility] 08-21-2017 [facility] Office Visit ([place]) ----MARYBETH VALDEZ ([id number]) 1960 FDate Time Provider Ibvieuryib88/20/17 1:15 PM ELENITA CHENG During your visit today, we recorded the following information about you:Elenita Cheng MD 08/21/2017 2:16 PM SignedChdarnell Valdez returns today to follow up left ankle peroneal tendontenosynovectomy,?debri jeane of low-lying muscle belly peroneus brevistendon,?peroneal tendon stabilization with deepening of fibular groove andrepair of superior peroneal retinaculum,?Debridement of nonunion/loose bodyprevious distal fibular avulsion fracture,Repair of calcaneofibular ligament,Zamora modification for ankle and subtalar stabilization with advancement of theinferior extensor retinaculum to fibular periosteum,?Application of XWRAPamniotic membrane graft OR 12/25 8 months s/p [facility] [place] [facility] [place] [facility] [place]. She states she did not do a lot of over walking.The airport in [place] was small. She avoid the sand and avoided uneven ground.She [place] have to walk [place] in [place]. Once she arrived in [place] [facility] [place], her footswelled up. She was not even able to wear a flip flop. She states at night whenthe weather was cooler the swelling would go down, however in the day her footswelled. She had elevated, iced, used compression, she took Ibuprofen 800 mgprn. When she arrived home she was still icing, elevating, and usingcompression. Took the Lodine Xl 500 mg. She is unable to get her foot untileven her widest tennis shoes. Her pain has been 7/10 - 10/10 at times. Shestill feels like her foot is very stiff, all the time. She is frustrated withher progress and feels that she should be further along. She is stretchingSeveral times throughout the entire day. Does not feel like the stiffness hasimproved.Do you have a metal allergy?: NoCurrent Dx: She is shown great improvement status post peroneal tendon repairInjury:NoPt. Feels their overall condition is worse.Is the patient having any pain? Yes LOCATION: Left footPAIN SCALE: 5 on a scale of 0-10PAIN CHARACTER: achingDURATION: (How long have you had the pain?) 2 weeksFREQUENCY: (How often does the pain occur?) occurs constantlyCurrent treatment plan includes: Weight Bearing Status: noneWeight bearing status:FullAmbulatory Aids:N/APhysical Therapy:NoHome Exercise Program: NoNSAIDS: Not takingPain medication: NoneActivity Levels: NormalPHYSICAL EXAM: Left peroneal tendon repair.Physical examination reveals an alert and oriented patient who is in no acutedistress while sitting and is of normal mood and affect.There were no vitals taken for this visit.Gait Cycle: Normal Yes, Limp: none.Inspection: Alignment: neutralSymmetry: Swelling: yes. Redness: no. Ecchymosis: noEffusion: 0Palpation: Warmth: no, Tenderness:Yes: Foot Metatarsal 5ROM: Within normal limits.Strength: 5Stability: Ligamentous instability: noSpecialized Tests: negativeNeurologic Status: normal.Vascular Status: normalSkin: Incision: well healed, clean, dry and intactXRAYS: none todayDX: Patient with persistent pain in her foot with swelling. Pain is localizedto the base of the fifth metatarsal. Dissected previous peroneal tendon issuesin the pastPlan: Based on her failure to progress with conservative measures, she iscurrently on anti-inflammatory medications, she is done physical therapy,icing, stretching, shoe or modifications without resolution. Therefore, I willorder an MRIHPI explored in detail with patient and edited as necessary.At the conclusion of the visit the patient voiced understanding and agreementwith the plan. The patient knows to call us or present to the nearest EmergencyDepartment if the patients pain increases.Patient knows how to reach us if there are any questions or problems.Elenita Cheng M.D.Referring Provider: ELENITA CHENG [[id number]]Allergies As of Date: 08/21/2017 Noted Allergy ReactionPENICILLINS 09/24/2016 2 - RashDate Reviewed: 08/21/2017Reviewed by: Malika Licona - Fully AssessedReason for Visit: Follow Up [171]Primary Visit Diagnosis:Peroneal tendinitis, left [M76.72]Order(s):MRI FOOT/TOES WO IVCON LT [[id number]] Order #: [id number] FUTUREPrescriptions as of 08/21/2017 Sig: ETODOLAC ER 500 MG TABLET,EXT* Take 1 tablet by mouth once d* TIZANIDINE 4 MG TABLET Take 4 mg by mouth three time* ZOLPIDEM 10 MG TABLET Take 10 mg by mouth at bedtim* ALPRAZOLAM 0.5 MG TABLET Take 0.5 mg by mouth as neede* CLONIDINE HCL 0.1 MG TABLET Take 0.1 mg by mouth twice da* ZYRTEC ORAL Take by mouth once daily. VENLAFAXINE 75 MG TABLET Take 75 mg by mouth three rusty*Problem List As Of Date 08/21/2017 Noted Resolved Peroneal tendinitis [M76.70] INVALID FOR* Chronic pain of left ankle [M25.572, G89.29] INVALID FOR* Status:Closed by ELENITA CHENG MD on 08/21/17 [facility] PROGRESSon 08-21-2017 Protein mass conc HNO ID: [id number] thor: Elenita ChengService: (none)Author Type: PhysicianType: Progress NotesFiled: 08/21/2017 2:16 PMNote Text:Marybeth Valdez returns today to follow up left ankle peroneal tendontenosynovectomy,?debri jeane of low-lying muscle belly peroneus brevistendon,?peroneal tendon stabilization with deepening of fibular groove andrepair of superior peroneal retinaculum,?Debridement of nonunion/loosebody previous distal fibular avulsion fracture,Repair of calcaneofibularligament, Zamora modification for ankle and subtalar stabilization withadvancement of the inferior extensor retinaculum to fibularperiosteum,?Applicati on of XWRAP amniotic membrane graft OR 12/25 8 monthss/p She had did well up until staying in [facility] 08/05 through 08/15. Shestates she did not do a lot of over walking. [facility] [place] [facility] She avoid the sand and avoided uneven ground. [place] Once she arrived in [facility], her foot swelled up. She wasnot even able to wear a flip flop. She states at night when the weatherwas cooler the swelling would go down, however in the day her footswelled. She had elevated, iced, used compression, she took Ibuprofen 800mg prn. When she arrived home she was still icing, elevating, and usingcompression. Took the Lodine Xl 500 mg. She is unable to get her footuntil even her widest tennis shoes. Her pain has been 7/10 - 10/10 attimes. She still feels like her foot is very stiff, all the time. She isfrustrated with her progress and feels that she should be further along.She is stretching Several times throughout the entire day. Does not feellike the stiffness has improved.Do you have a metal allergy?: NoCurrent Dx: She is shown great improvement status post peroneal tendonrepairInjury:NoPt. Feels their overall condition is worse.Is the patient having any pain? Yes LOCATION: Left footPAIN SCALE: 5 on a scale of 0-10PAIN CHARACTER: achingDURATION: (How long have you had the pain?) 2 weeksFREQUENCY: (How often does the pain occur?) occurs constantlyCurrent treatment plan includes: Weight Bearing Status: noneWeight bearing status:FullAmbulatory Aids:N/APhysical Therapy:NoHome Exercise Program: NoNSAIDS: Not takingPain medication: NoneActivity Levels: NormalPHYSICAL EXAM: Left peroneal tendon repair.Physical examination reveals an alert and oriented patient who is in noacute distress while sitting and is of normal mood and affect.There were no vitals taken for this visit.Gait Cycle: Normal Yes, Limp: none.Inspection: Alignment: neutralSymmetry: Swelling: yes. Redness: no. Ecchymosis: noEffusion: 0Palpation: Warmth: no, Tenderness:Yes: Foot Metatarsal 5ROM: Within normal limits.Strength: 5Stability: Ligamentous instability: noSpecialized Tests: negativeNeurologic Status: normal.Vascular Status: normalSkin: Incision: well healed, clean, dry and intactXRAYS: none todayDX: Patient with persistent pain in her foot with swelling. Pain islocalized to the base of the fifth metatarsal. Dissected previousperoneal tendon issues in the pastPlan: Based on her failure to progress with conservative measures, she iscurrently on anti-inflammatory medications, she is done physical therapy,icing, stretching, shoe or modifications without resolution. [facility], [facility] MRIHPI explored in detail with patient and edited as necessary.At the conclusion of the visit the patient voiced understanding andagreement with the plan. The patient knows to call us or [facility] if the patients pain increases.Patient knows how to reach us if there are any questions or problems.Elenita Cheng M.D. [facility] Encounters Encounter Date Encounter Type Care Provider Facility Start: 01-15-2023 End: 01-16-[address] ADAM MCKEON Facility:[facility] Start: 08-07-2022 End: 08-08-[address] RASHID CANTRELL Facility:[facility] Start: 07-18-2022 End: 07-19-[address] ADAM MCKEON Facility:[facility] Start: 04-16-2022 End: 04-17-[address] ADAM MCKEON Facility:[facility] Start: 01-18-2022 End: 01-19-[address] RASHID CANTRELL Facility:[facility] Start: 06-04-2018 End: 06-04-2018 Patient encounter ELENITA CHENG [facility] Start: 04-30-2018 End: 04-30-2018 Patient encounter ELENITA CHENG [facility] Start: 09-11-2017 End: 09-11-2017 Patient encounter ELENITA CHENG [facility] Start: 09-01-2017 Ambulatory ELENITA Langfordi christiano Start: 08-21-2017 End: 08-21-2017 Patient encounter ELENITA CHENG [facility] Payers Date Payer Category Payer Unknown [id number] 2.16.84 [id number] 1961 Unknown [id number] 2.16.84 [id number] 1961 Unknown [id number] 2.16.84 [id number] 1961 Unknown [id number] 2.16.84 [id number] 1961 Unknown [id number] 2.16.84 [id number] 1959 Unknown [id number] Clinical Note 01-18-2022 Note Date & Type Note Facility 01-18-2022 Note PROCEDURE: XR FOOT L T MIN 3 VIEWS COMPARISON: 09/16/2019 HISTORY: Pain in left foot FINDINGS: BONES:No fracture, acute abnormality, or significant arthropathy. SOFT TISSUES:Negative. No visible soft tissue swelling. EFFUSION:None visible. OTHER: Negative. IMPRESSION: No acute fracture Electronically authenticated by: RASHID CANTRELL Date: 2022-01-18 10:50 [facility] Summary Purpose Family History No Family History Records FoundNo Family History Records FoundNo Family History Records FoundNo Family History Records Found Advance Directives No Advanced Directives Records FoundNo Advanced Directives Records FoundNo Advanced Directives Records FoundNo Advanced Directives Records Found Additional Source Comments INFORMATION SOURCE (unrecogn ized section and content) DATE CREATED AUTHOR 02/25/2018 [facility] DATE CREATED AUTHOR AUTHOR'S ORGANIZ ATION 07/03/2018 [facility] DATE CREATED AUTHOR AUTHOR'S ORGANIZ ATION 07/02/2019 [place] DATE CREATED AUTHOR AUTHOR'S ORGANIZ ATION 01/16/2023 [facility] FOR RECORDS PERTAINING TO PATIENTS WHO ARE OR HAVE BEEN ENROLLED IN A CHEMICAL DEPENDENCY/SUBSTANCEABUSE PROGRAM, SOME INFORMATION MAY BE OMITTED. This clinical summary was aggregated from multiple sources. Caution should be exercised in using it in the provision of clinical care. This summary normalizes information from multiple sources, and as a consequence, information in this document may materially change the coding, format and clinical context of patient data. In addition, data may be omitted in some cases. CLINICAL DECISIONS SHOULD BE BASED ON THE PRIMARY CLINICAL RECORDS. [facility] [employer] [facility] provides no warranty or guarantee of the accuracy or completeness of information in this document.
== END 2023-09-06 13:54 | disposition home or self-care (01) ==
LOC: MAMMO 13:53
PROVIDERS: PCP Family Medicine; Visit Provider Family Medicine
DX: Z12.31 Encounter for screening mammogram for malignant neoplasm of breast (principal); Z80.8 Family history of malignant neoplasm of other organs or systems; Z80.0 Family history of malignant neoplasm of digestive organs
CPT/HCPCS: 77063; 77067

== ENCOUNTER 2023-10-16 12:44 | Outpatient (OUT) | payer OTHER, SELFPAY ==
--- OUTSIDE RECORDS SUMMARY | 2023-10-16 12:46 | XMS_ITS | CCD ---
Author Name Unknown Address [address] [place] [address] Organization [facility] Care Team Providers Care Type Cutter Name Role Phone SYEDA, ELENITA W Unavailable [...] Unavailable NADERER, DR ADAM Day Attending Unavailable WEST, DR RASHID Bledsoe Consulting Unavailable [...] adverse reactions to drug (disorder) 7 AOF [facility] Other [place] [facility] (1 source) Penicillin Drug Allergy [facility] Repository Problems Active Problems Problem Classification [...] 01-15-2023 BASO # 0.0 103/ul Normal 0.0-0.1 [facility] Comment on above: Performed By: #### C BC #### [facility] [address] [place] [address] Dr. Angelo Ballesteros Basophils/100 WBC (Bld) 0.1 % Critically low 0.2-2.0 [facility] Comment on above: Performed By: #### C BC #### [facility] [address] [place] [address] Dr. Angelo Ballesteros EO # 0.0 103/ul Normal 0.0-0.7 [facility] Comment on above: Performed By: #### C BC #### [facility] [address] [address] [address] Angelo Ballesteros Eosinophils/100 WBC (Bld) 0.0 % Critically low 0.9-7.0 [facility] Comment on above: Performed By: #### C BC #### [facility] [address] [place] [address] Dr. Angelo Ballesteros Erythrocyte distribution width (RBC) [Ratio] 13.3 % Normal 11.0-15.0 [facility] Comment on above: Performed By: #### C BC #### [facility] [address] [place] [address] Dr. Angelo Ballesteros Hematocrit (Bld) [Volume fraction] 44.3 % Normal 36.0-48.0 [facility] Comment on above: Performed By: #### C BC #### [facility] [address] [place] [address] Dr. Angelo Ballesteros Hemoglobin (Bld) [Mass/Vol] 14.4 g/dL Normal 12.0-16.0 [facility] Comment on above: Performed By: #### C BC #### [facility] [address] [place] [address] Dr. Angelo Ballesteros IG # 0.02 10e3/ul Normal 0.00-0.03 [facility] Comment on above: Performed By: #### C BC #### [facility] [address] [place] [address] Dr. Angelo Ballesteros IG % 0.3 % Normal 0.0-0.5 [facility] Comment on above: Performed By: #### C BC #### [facility] [address] [place] [address] Dr. Angelo Ballesteros LYMPH # 3.3 103/ul Normal 1.2-3.8 [facility] Comment on above: Performed By: #### C BC #### [facility] [address] [place] [address] Dr. Angelo Ballesteros Lymphocytes/100 WBC (Bld) 41.8 % Normal 20.5-60.0 [facility] Comment on above: Performed By: #### C BC #### [facility] [address] [place] [address] Dr. Angelo Ballesteros MANUAL DIFF REQ NO Normal [facility] Comment on above: Performed By: #### C BC #### [facility] [address] [place] [address] Dr. Angelo Ballesteros MCH (RBC) [Entitic mass] 30.1 pg Normal 26.7-34.0 [facility] Comment on above: Performed By: #### C BC #### [facility] [address] [address] [address] Angelo Ballesteros MCHC (RBC) [Mass/Vol] 32.5 g/dL Normal 29.9-35.2 [facility] Comment on above: Performed By: #### C BC #### [facility] [address] [address] [address] Angelo Ballesteros MCV (RBC) [Entitic vol] 92.5 fL Normal 81.0-99.0 [facility] Comment on above: Performed By: #### C BC #### [facility] [address] [place] [address] Dr. Angelo Ballesteros MONO # 0.6 103/ul Normal 0.3-0.8 [facility] Comment on above: Performed By: #### C BC #### [facility] [address] [place] [address] Dr. Angelo Ballesteros Monocytes/100 WBC (Bld) 7.1 % Normal 1.7-12.0 [facility] Comment on above: Performed By: #### C BC #### [facility] [address] [place] [address] Dr. Angelo Ballesteros NEUT # 4.1 103/ul Normal 1.4-6.5 [facility] Comment on above: Performed By: #### C BC #### [facility] [address] [place] [address] Dr. Angelo Ballesteros Neutrophils/100 WBC (Bld) 50.7 % Normal 43.0-75.0 [facility] Comment on above: Performed By: #### C BC #### [facility] [address] [address] [address] Angelo Ballesteros Platelet mean volume (Bld) [Entitic vol] 10.6 fL Normal 9.5-13.5 [facility] Comment on above: Performed By: #### C BC #### [facility] [address] [address] [address] Angelo Ballesteros PLT 294 103/ul Normal 150-450 [facility] Comment on above: Performed By: #### C BC #### [facility] [address] [place] [address] Dr. Angelo Ballesteros RBC 4.79 106/ul Normal 4.20-5.40 [facility] Comment on above: Performed By: #### C BC #### [facility] [address] [place] [address] Dr. Angelo Ballesteros WBC 8.0 103/ul Normal 4.0-11.0 [facility] Comment on above: Performed By: #### C BC #### [facility] [address] [place] [address] Dr. Angelo Ballesteros GLYCOHEMOGLOBIN A1Con 2022 ADA RECOMMENDATION SEE BELOW Normal [facility] Comment on above: Result Comment: ADA RECOMMENDED LIMIT 4.0 - 6.0 ADA THERAPEUTIC TARGET < 7.0 ACTION SUGGESTED > 7.0 Performed By: #### A 1C #### [facility] [address] [place] [address] Dr. Angelo Ballesteros Glucose [Mass/Vol] 160 mg/dL Normal [facility] Comment on above: Performed By: #### A 1C #### [facility] [address] [place] [address] Dr. Angelo Ballesteros HbA1c (Bld) [Mass fraction] 7.2 % Critically high 4.5-6.2 [facility] Comment on above: Performed By: #### A 1C #### [facility] [address] [place] [address] Dr. Angelo Ballesteros LIPID PROFILEon 01-15-2023 CHOL-HDL RATIO NORM SEE BELOW Normal [facility] Comment on above: Result Comment: 3.3 - 4.4 LOW RISK 4.4 - 7.1 AVERAGE RISK 7.1 - 11.0 MODERATE RISK >11.0 HIGH RISK Performed By: #### T SH, LIVER, BMP, LIPID #### [facility] [address] [place] [address] Dr. Angelo Ballesteros Cholesterol [Mass/Vol] 219 mg/dL Critically high <=200 [facility] Comment on above: Performed By: #### T SH, LIVER, BMP, LIPID #### [facility] [address] [address] [address] Angelo Ballesteros Cholesterol in HDL [Mass/Vol] 41 mg/dL Normal 40-60 [facility] Comment on above: Performed By: #### T SH, LIVER, BMP, LIPID #### [facility] [address] [address] [address] Angelo Ballesteros Cholesterol in LDL [Mass/Vol] 100.6 mg/dL Normal [facility] Comment on above: Performed By: #### T SH, LIVER, BMP, LIPID #### [facility] [address] [address] [address] Angelo Ballesteros Cholesterol.total/ Cholesterol in HDL [Mass ratio] 5.3 {ratio} Normal [facility] Comment on above: Performed By: #### T SH, LIVER, BMP, LIPID #### [facility] [address] [address] [address] Angelo Ballesteros HDL NORMAL > or = 60 mg/dl - LO W CARDIOVASCULAR RISK <40 mg/dl - HIGH CARDIOVASCULAR RISK Normal [facility] Comment on above: Performed By: #### T SH, LIVER, BMP, LIPID #### [facility] [address] [address] [address] Angelo Ballesteros LDL CALC NORMAL SEE BELOW Normal [facility] Comment on above: Result Comment: <100 mg/dl OPTIMAL 100 - 129 mg/dl NEAR OR ABOVE OPTIMAL 130 - 159 mg/dl BORDERLINE HIGH 160 - 189 mg/dl HIGH >190 mg/dl VERY HIGH Performed By: #### T SH, LIVER, BMP, LIPID #### [facility] [address] [address] [address] Angelo Ballesteros Triglyceride [Mass/Vol] 387 mg/dL Critically high <=150 [facility] Comment on above: Performed By: #### T SH, LIVER, BMP, LIPID #### [facility] [address] [address] [address] Angelo Ballesteros VLDL CALC 77.4 mg/dL Normal [facility] Comment on above: Performed By: #### T SH, LIVER, BMP, LIPID #### [facility] [address] [address] [address] Angelo Ballesteros LIVER PROFILEon 01-15-2023 Albumin [Mass/Vol] 3.7 g/dL Normal 3.4-5.0 [facility] Comment on above: Performed By: #### T SH, LIVER, BMP, LIPID #### [facility] [address] [address] [address] Angelo Ballesteros Albumin/Globulin [Mass ratio] 1.1 {ratio} Normal [facility] Comment on above: Performed By: #### T SH, LIVER, BMP, LIPID #### [facility] [address] [address] [address] Angelo Ballesteros ALP [Catalytic activity/Vol] 64 U/L Normal 46-116 [facility] Comment on above: Performed By: #### T SH, LIVER, BMP, LIPID #### [facility] [address] [place] [address] Dr. Angelo Ballesteros ALT [Catalytic activity/Vol] 24 U/L Normal 14-59 [facility] Comment on above: Performed By: #### T SH, LIVER, BMP, LIPID #### [facility] [address] [place] [address] Dr. Angelo Ballesteros AST [Catalytic activity/Vol] 17 U/L Normal 15-37 [facility] Comment on above: Performed By: #### T SH, LIVER, BMP, LIPID #### [facility] [address] [place] [address] Dr. Angelo Ballesteros BILI, CONJUGATED 0.1 mg/dL Normal 0.0-0.2 [facility] Comment on above: Performed By: #### T SH, LIVER, BMP, LIPID #### [facility] [address] [place] [address] Dr. Angelo Ballesteros Bilirubin [Mass/Vol] 0.3 mg/dL Normal 0.2-1.0 [facility] Comment on above: Performed By: #### T SH, LIVER, BMP, LIPID #### [facility] [address] [place] [address] Dr. Angelo Ballesteros Globulin (S) [Mass/Vol] 3.3 g/dL Normal [facility] Comment on above: Performed By: #### T SH, LIVER, BMP, LIPID #### [facility] [address] [address] [address] Angelo Ballesteros Protein [Mass/Vol] 7.0 g/dL Normal 6.4-8.2 [facility] Comment on above: Performed By: #### T SH, LIVER, BMP, LIPID #### [facility] [address] [address] [address] Angelo Ballesteros PROF CHEM 8 (BAS METB)on Anion gap [Moles/Vol] 13.7 mmol/L Normal [facility] Comment on above: Performed By: #### T SH, LIVER, BMP, LIPID #### [facility] [address] [place] [address] Dr. Angelo Ballesteros Calcium [Mass/Vol] 8.4 mg/dL Critically low 8.5-10.1 [facility] Comment on above: Performed By: #### T SH, LIVER, BMP, LIPID #### [facility] [address] [place] [address] Dr. Angelo Ballesteros Chloride [Moles/Vol] 105 mmol/L Normal 98-107 [facility] Comment on above: Performed By: #### T SH, LIVER, BMP, LIPID #### [facility] [address] [place] [address] Dr. Angelo Ballesteros CO2 [Moles/Vol] 27.0 mmol/L Normal 21.0-32.0 [facility] Comment on above: Performed By: #### T SH, LIVER, BMP, LIPID #### [facility] [address] [place] [address] Dr. Angelo Ballesteros Creatinine [Mass/Vol] 1.01 mg/dL Normal 0.55-1.02 [facility] Comment on above: Performed By: #### T SH, LIVER, BMP, LIPID #### [facility] [address] [place] [address] Dr. Angelo Ballesteros EGFR-AF CANADIAN >60 Normal >=60 [facility] Comment on above: Performed By: #### T SH, LIVER, BMP, LIPID #### [facility] [address] [address] [address] Angelo Ballesteros EGFR-NON AF CANADIAN 56 mL/min/1.73m2 Critically low >=60 [facility] Comment on above: Performed By: #### T SH, LIVER, BMP, LIPID #### [facility] [address] [address] [address] Angelo Ballesteros Glucose [Mass/Vol] 109 mg/dL Critically high 74-[address] [facility] Comment on above: Performed By: #### T SH, LIVER, BMP, LIPID #### [facility] [address] [address] [address] Angelo Ballesteros Potassium [Moles/Vol] 3.7 mmol/L Normal 3.5-5.1 [facility] Comment on above: Performed By: #### T SH, LIVER, BMP, LIPID #### [facility] [address] [address] [address] Angelo Ballesteros Sodium [Moles/Vol] 142 mmol/L Normal 136-145 [facility] Comment on above: Performed By: #### T SH, LIVER, BMP, LIPID #### [facility] [address] [address] [address] Angelo Ballesteros Urea nitrogen [Mass/Vol] 11.0 mg/dL Normal 7.0-18.0 [facility] Comment on above: Performed By: #### T SH, LIVER, BMP, LIPID #### [facility] [address] [place] [address] Dr. Angelo Ballesteros Urea nitrogen/Creatinin e [Mass ratio] 10.9 mg/mg Normal [facility] Comment on above: Performed By: #### T SH, LIVER, BMP, LIPID #### [facility] [address] [place] [address] Dr. Angelo Ballesteros TSHon 01-15-2023 TSH 1.845 uIU/mL Normal 0.358-3.740 [facility] Comment on above: Performed By: #### T SH, LIVER, BMP, LIPID #### [facility] [address] [place] [address] Dr. Angelo Ballesteros MG MAMM SCREEN 3D SUDARSHAN CADon 08-07-2022 MG MAMM SCREEN 3D SUDARSHAN CAD Patient: MARYBETH VALDEZ Exam Date: 08/07/2022 : 1960 Gender:F Ordering : DR ADAM MCKEON . Admission #: [id number] Family : Order #: [id number] CLICK HERE TO VIEW EXAM RADIOLOGY REPORT [...] colon cancer at age 85. LOCATION: [facility] BREAST COMPOSITION: Heterogeneously dense,which may obscure [...] Cantrell MD on 08/07/2022 at 15:46 Normal [facility] GLYCOHEMOGLOBIN A1Con 2021 ADA RECOMMENDATION SEE BELOW Normal [facility] Comment on above: Result Comment: ADA RECOMMENDED LIMIT 4.0 - 6.0 ADA THERAPEUTIC TARGET < 7.0 ACTION SUGGESTED > 7.0 Performed By: #### A 1C #### [facility] [address] [address] [address] Angelo Ballesteros Glucose [Mass/Vol] 197 mg/dL Normal [facility] Comment on above: Performed By: #### A 1C #### [facility] [address] [address] [address] Angelo Ballesteros HbA1c (Bld) [Mass fraction] 8.5 % Critically high 4.5-6.2 [facility] Comment on above: Performed By: #### A 1C #### [facility] [address] [address] [address] Angeol Ballesteros GLYCOHEMOGLOBIN A1Con 2021 ADA RECOMMENDATION SEE BELOW Normal [facility] Comment on above: Result Comment: ADA RECOMMENDED LIMIT 4.0 - 6.0 ADA THERAPEUTIC TARGET < 7.0 ACTION SUGGESTED > 7.0 Performed By: #### A 1C #### [facility] [address] [address] [address] Angelo Ballesteros Glucose [Mass/Vol] 194 mg/dL Normal [facility] Comment on above: Performed By: #### A 1C #### [facility] [address] [address] [address] Angelo Ballesteros HbA1c (Bld) [Mass fraction] 8.4 % Critically high 4.5-6.2 [facility] Comment on above: Performed By: #### A 1C #### [facility] [address] [address] [address] Angelo Ballesteros Initial Visit (Pain Medicine [...] 0 Days ; #: Sufficient; Refill: 0; YSDNIE = N; Record; Last Updated By: Sade [...] 07/01/2019 1:43:49 PM Vitals Vital Signs Recorded: 01Jul2019 01:29PM Dgxjlzoopkb06.4 F Heart Euog752 Sgjybobrbgi63 Umnpaoff639 Quouoxenc059 Height5 ft 7 in Qhhrca471 lb BMI Trxdfiguaz02.19 BSA Calculated1.93 Pain Scale8 Physical Exam Vital [...] preserved. 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 as tested without focal neurological deficit [...] high given the patient clinical presentation, labs, ER NURSE data, radiology reports, and other tests as [...] visit with any questions or concerns at [phone] M-F 8-4 pm Signatures Electronically signed by : Mari Howe MD; Jul 01 2019 2:20PM EST (Author) Normal [facility] 06-[facility]-2018 [facility] Office Visit ([facility]) ----MARYBETH VALDEZ ([id number]) 1960 [facility] Time Provider Auyowottqj00/3/18 1:00 PM ELENITA CHENG During your visit today, we recorded the following information about you:Elenita Cheng MD 06/05/2018 5:06 PM SignedMarybeth Valdez returns today to follow up left [...] or problems.This note was partially generated using Feebbo voice recognition system, andthere may be some [...] by ELENITA CHENG MD on 06/05/18 Normal [facility] PROGRESSon 06-04-2018 Protein mass conc HNO ID: [id number] thor: Elenita Dickens: (none)Author Type: PhysicianType: Progress [...] [facility] call [facility] the [facility].Patient knows how to reach us if there are any questions or problems.This note was partially generated using Feebbo voice recognition system,and there may be some incorrect words, spellings, and punctuation thatwere not noted in checking the note before saving.Elenita Cheng M.D. Normal [facility] CNOVon 04-30-2018 CNOV Office Visit (ORAVON) ----MARYBETH VALDEZ ([id number]) 1960 [facility] Time Provider Department04/30/18 1:15 PM ELENITA CHENG [...] or problems.This note was partially generated using Feebbo voice recognition system, andthere may be some [...] by ELENITA CHENG MD on 05/01/18 Normal [facility] PROGRESSon 04-30-2018 Protein mass conc HNO ID: [id number] thor: Elenita ChengService: (none)Author Type: PhysicianType: Progress [...] to call [facility] or [facility] if the patients pain increases.Patient knows how to reach us if there are any questions or problems.This note was partially generated using Feebbo voice recognition system,and there may be some incorrect words, spellings, and punctuation thatwere not noted in checking the note before saving.Elenita Cheng M.D. Normal [facility] CNOVon 09-11-2017 CNOV Office Visit (ORAVON) ----MARYBETH VALDEZ ([id number]) 1960 FDate Time Provider Department09/11/17 1:15 PM ELENITA CHENG During your visit today, we recorded the following information about you:Elenita Cheng MD 09/11/2017 2:25 PM Killian Valdez returns today to follow up/discuss results of left foot MRIwhich was completed on 09/01. She is still concerned about the amount ofstiffness she still has. She states she has pain is about the 12/10.Do you have a metal allergy?: NoCurrent Dx: [...] there are any questions or problems.Liam Betancourt, FellTEACHING PHYSICIAN STATEMENT:I personally saw and evaluated the [...] by ELENITA CHENG MD on 09/11/17 Normal [facility] PROGRESSon 09-11-2017 Protein mass conc HNO ID: [id number] thor: Elenita ChengService: (none)Author Type: PhysicianType: Progress [...] knows to call [facility] the [facility] pain [...] the resident's/fellow's medicaldecision-making as documented.Gayla Scruggs M.D. [facility] HEALTH 09-01-2017 ALLIED HEALTH HNO ID: [id number] thor: Maurice Prieto) Dariusz Irizarry: RadiologyAuthor Type: TechnicianType: Allied HealthFiled: 09/01/2017 11:42 AMNote Text: Radiology Service Progress NotePATIENT NAME: Marybeth DunnN: [id number] OF SERVICE: September 01, 2017TIME: 11:30 AMPATIENT IDENTITY VERIFICATION COMPLETED USING TWO (2) METHODS: Patientconfirmed name verbally and Date of .PATIENT GENDER DATA: Female. status: : NoBreastfeeding status: NO.PATIENT RELEVANT IMPLANT DATA REVIEWED: YesRADIOLOGY DEPARTMENT: MR; Exam(s) Completed: Lower MSK: Ankle/Hind Foot,leftPERIPHERAL IV DATA: Not applicableSIGNED BY: Serena Colón 2016 11:30 AM [facility] MRI FOOT/TOES WO IVCON LTon 09-01-2017 MRI FOOT/TOES WO IVCON LT * * *Final Report* * *DATE OF EXAM: Sep 01 2017 11:43AM [facility] 0194 - MRI FOOT/TOES WO IVCON [...] mm osteochondral lesion medial aspect talar dome, unchanged.Fruit Or Nut Grower: NIKITA Transcribe Date/Time: Sep 01 2017 12:12PDictated by : KELSIE VERNON MDThis examination was interpreted and the report reviewed and electronically signed by: KELSIE VERNON MD on Sep 01 2017 12:29PM [id number] [facility] 08-21-2017 [facility] Office Visit (ORAIMEE) ----MARYBETH VALDEZ ([id number]) 1960 FDate Time Provider Exyhbkwgol65/20/17 1:15 PM ELENITA CHENG During your visit [...] [place] [facility] [place]. She states she did not do a lot of over walking.The airport in [place] was [place]. She avoid the sand and avoided uneven ground.She did have to walk a lot in [place]. Once she arrived in [facility], her footswelled up. She was not even [...] tendinitis, left [M76.72]Order(s):MRI FOOT/TOES WO IVCON LT [[id number]] Order #: [id number] FUTUREPrescriptions as of 08/21/2017 Sig: ETODOLAC ER [...] by ELENITA CHENG MD on 08/21/17 Normal [facility] PROGRESSon 08-21-2017 Protein mass conc HNO ID: [id number] thor: Elenita ChengService: (none)Author Type: PhysicianType: Progress [...] had did well up until staying in [facility] 08/05 through 08/15. Shestates she did not do a lot of over walking. [place] [facility] [place] She avoid the sand and avoided uneven ground. She did have to walka lot in [place]. Once she arrived in [facility], her foot swelled up. She wasnot even [...] stretching, shoe or modifications without resolution. [facility] MRIHPI explored in detail with patient and edited as necessary.At the conclusion of the visit the patient voiced understanding andagreement with the plan. The patient knows to call us or [facility] if the patients pain increases.Patient knows how to reach us if there are any questions or problems.Elenita Cheng M.D. Normal [facility] Encounters Encounter Date Encounter Type Care Provider Facility Start: 01-15-2023 End: 01-16-[address] ADAM MCKEON Facility:[facility] Start: 08-07-2022 End: 08-08-[address] RASHID CANTRELL Facility:[facility] Start: 07-18-2022 End: 07-19-[address] ADAM MCKEON Facility:[facility] Start: 04-16-2022 End: 04-17-[address] ADAM MCKEON Facility:[facility] Start: 01-18-2022 End: 01-19-[address] RASHID CANTRELL Facility:[facility] Start: 06-04-2018 End: 06-04-2018 Patient encounter ELENITA CHENG [employer] [facility] Start: 04-30-2018 End: 04-30-2018 Patient encounter ELENITA CHENG [facility] Start: 09-11-2017 End: 09-11-2017 [facility] Start: 09-01-2017 Ambulatory ELENITA Langfordi christiano Start: 08-21-2017 End: 08-21-2017 Patient encounter ELENITA CHENG [facility] Payers Date Payer Category Payer Unknown [id number] 2.16.84 [id number] 1960 Unknown [id number] 2.16.84 [id number] 1960 Unknown [id number] 2.16.84 [id number] 1961 Unknown [id number] 2.16.84 [id number] 1961 Unknown [id number] 2.16.84 [id number] 1959 Unknown [id number] Clinical Note 01-18-2022 Note Date & Type Note Facility 01-18-2022 Note PROCEDURE: XR FOOT L T MIN 3 VIEWS COMPARISON: 09/16/2019 HISTORY: Pain in left foot FINDINGS: BONES:No fracture, acute abnormality, or significant arthropathy. SOFT TISSUES:Negative. No visible soft tissue swelling. EFFUSION:None visible. OTHER: Negative. IMPRESSION: No acute fracture Electronically authenticated by: RASHID CANTRELL Date: 2022-01-18 10:50 [facility] Summary Purpose Family History No Family History Records FoundNo Family History Records FoundNo Family History Records FoundNo Family History Records Found Advance Directives No Advanced Directives Records FoundNo Advanced Directives Records FoundNo Advanced Directives Records FoundNo Advanced Directives Records Found Additional Source Comments INFORMATION SOURCE (unrecogn ized section and content) DATE CREATED AUTHOR 02/25/2018 [facility] DATE CREATED AUTHOR AUTHOR'S ORGANIZ ATION 07/03/2018 [facility] DATE CREATED AUTHOR AUTHOR'S ORGANIZ ATION 07/02/2019 [facility] DATE CREATED AUTHOR AUTHOR'S ORGANIZ ATION 01/16/2023 [facility] FOR RECORDS PERTAINING TO PATIENTS WHO [...] BE BASED ON THE PRIMARY CLINICAL RECORDS. [facility] provides no warranty or guarantee of the accuracy or completeness of information in this document.
--- NOTE | 2023-10-16 12:49 | US_ITS ---
Patient Name: JOSH HANKINS MR#: [id number] : 1960 Exam Date: 10/16/2023 Ordering Doctor: DR Jaron Foote . RADIOLOGY REPORT PROCEDURE: MM DIAGNOSTIC MAMMO UNILAT LT, 10/16/2023, 12:55 US BREAST LT LIMITED, 10/16/2023, 12:06 COMPARISON: MM TOMOSYNTHESIS SCREENING BI, 09/06/2023. MG MAMM SCREEN 3D SUDARSHAN CAD, 08/07/2022. MG MAMM SCREEN 3D [place]UDARSHAN CAD, 05/29/2021. MG MAMM SCREEN 3D [place]UDARSHAN CAD, 05/13/2020. INDICATIONS: abnormal mammogram of left breast R92.8 Calculator Name NCI Breast Cancer Risk Assessment Tool 5 Year Breast Cancer Risk 1.10% Lifetime Breast Cancer Risk 5.00% Personal Breast Cancer No Personal Ovarian Cancer No Treatments None Family Cancers Mother with uterine cancer at age 37; Grandmother-maternal with colon cancer at age 84. LOCATION: [facility] BREAST COMPOSITION: Heterogeneously dense,which may obscure small masses. FINDINGS: DIAGNOSTIC CATEGORY 2--BENIGN FINDING: LEFT BREAST: Spot magnification views demonstrate persistence of loose grouping of tiny calcifications within upper inner quadrant/subareolar region which appear to be overall stable back through 2020. Some variation between years appears to be due to obscuration by breast parenchyma. Ultrasound evaluation demonstrates normal appearing fibroglandular tissue. No mass or appreciable architectural distortion. Annual screening mammography recommended. RECOMMENDATIONS: ROUTINE MAMMOGRAM AND CLINICAL EVALUATION IN 12 MONTHS. PLEASE NOTE: A NORMAL MAMMOGRAM DOES NOT EXCLUDE THE POSSIBILITY OF BREAST CANCER. A CLINICALLY SUSPICIOUS PALPABLE LUMP SHOULD BE BIOPSIED. Dictated by: Bryant Ortiz M.D. on 10/16/2023 at 13:28 Approved by: Bryant Ortiz M.D. on 10/16/2023 at 13:35
== END 2023-10-16 12:45 | disposition home or self-care (01) ==
LOC: MAMMO 12:44
PROVIDERS: PCP Family Medicine; Visit Provider Family Medicine
DX: R92.8 Other abnormal and inconclusive findings on diagnostic imaging of breast (principal); Z80.9 Family history of malignant neoplasm, unspecified; Z80.8 Family history of malignant neoplasm of other organs or systems; Z80.0 Family history of malignant neoplasm of digestive organs
CPT/HCPCS: 76642; 77065

== ENCOUNTER 2024-01-15 13:58 | Outpatient (OUT) | payer OTHER, SELFPAY ==
--- OUTSIDE RECORDS SUMMARY | 2024-01-15 14:04 | XMS_ITS | CCD ---
Author Organization [facility] Care Team Providers Care Mail Processing Associate Name Role Phone SYEDA, ELENITA W Unavailable [...] adverse reactions to drug (disorder) 7 AOF [facility] Other [place] [facility] (1 source) Penicillin Drug Allergy [facility] Problems Active Problems Problem Classification Problem Date Documented Da te Episodic/Chronic Diabetes mellitus with complications (4 sources) Type 2 diabetes mellitus with hyperglycemia; Translations: [TYPE 2 DM W/HYPERGLYCEMIA] Onset: 07-18-2022 Chronic Past or Other Problems Problem Classification Problem Date Documented Da te Episodic/Chronic Other connective tissue disease (1 source) Garimaal tendinitis, left leg; Translations: [Peroneal tendinitis, left [...] 01-15-2023 BASO # 0.0 103/ul Normal 0.0-0.1 [facility] Comment on above: Performed By: #### C BC #### [facility] [address] [place] [address] Dr. Angelo Ballesteros Basophils/100 WBC (Bld) 0.1 % Critically low 0.2-2.0 [facility] Comment on above: Performed By: #### C BC #### [facility] [address] [place] [address] Dr. Angelo Ballesteros EO # 0.0 103/ul Normal 0.0-0.7 [facility] Comment on above: Performed By: #### C BC #### [facility] [address] [address] [address] Angelo Ballesteros Eosinophils/100 WBC (Bld) 0.0 % Critically low 0.9-7.0 [facility] Comment on above: Performed By: #### C BC #### [facility] [address] [place] [address] Dr. Angelo Ballesteros Erythrocyte distribution width (RBC) [Ratio] 13.3 % Normal 11.0-15.0 [facility] Comment on above: Performed By: #### C BC #### [facility] [address] [place] [address] Dr. Angelo Ballesteros Hematocrit (Bld) [Volume fraction] 44.3 % Normal 36.0-48.0 [facility] Comment on above: Performed By: #### C BC #### [facility] [address] [place] [address] Dr. Angelo Ballesteros Hemoglobin (Bld) [Mass/Vol] 14.4 g/dL Normal 12.0-16.0 [facility] Comment on above: Performed By: #### C BC #### [facility] [address] [place] [address] Dr. Angelo Ballesteros IG # 0.02 10e3/ul Normal 0.00-0.03 [facility] Comment on above: Performed By: #### C BC #### [facility] [address] [place] [address] Dr. Angelo Ballesteros IG % 0.3 % Normal 0.0-0.5 [facility] Comment on above: Performed By: #### C BC #### [facility] [address] [place] [address] Dr. Angelo Ballesteros LYMPH # 3.3 103/ul Normal 1.2-3.8 [facility] Comment on above: Performed By: #### C BC #### [facility] [address] [place] [address] Dr. Angelo Ballesteros Lymphocytes/100 WBC (Bld) 41.8 % Normal 20.5-60.0 [facility] Comment on above: Performed By: #### C BC #### [facility] [address] [place] [address] Dr. Angelo Ballesteros MANUAL DIFF REQ NO Normal [facility] Comment on above: Performed By: #### C BC #### [facility] [address] [place] [address] Dr. Angelo Ballesteros MCH (RBC) [Entitic mass] 30.1 pg Normal 26.7-34.0 [facility] Comment on above: Performed By: #### C BC #### [facility] [address] [place] [address] Dr. Angelo Ballesteros MCHC (RBC) [Mass/Vol] 32.5 g/dL Normal 29.9-35.2 [facility] Comment on above: Performed By: #### C BC #### [facility] [address] [place] [address] Dr. Angelo Ballesteros MCV (RBC) [Entitic vol] 92.5 fL Normal 81.0-99.0 [facility] Comment on above: Performed By: #### C BC #### [facility] [address] [place] [address] Dr. Angelo Ballesteros MONO # 0.6 103/ul Normal 0.3-0.8 [facility] Comment on above: Performed By: #### C BC #### [facility] [address] [place] [address] Dr. Angelo Ballesteros Monocytes/100 WBC (Bld) 7.1 % Normal 1.7-12.0 [facility] Comment on above: Performed By: #### C BC #### [facility] [address] [place] [address] Dr. Angelo Ballesteros NEUT # 4.1 103/ul Normal 1.4-6.5 [facility] Comment on above: Performed By: #### C BC #### [facility] [address] [place] [address] Dr. Angelo Ballesteros Neutrophils/100 WBC (Bld) 50.7 % Normal 43.0-75.0 [facility] Comment on above: Performed By: #### C BC #### [facility] [address] [place] [address] Dr. Angelo Ballesteros Platelet mean volume (Bld) [Entitic vol] 10.6 fL Normal 9.5-13.5 [facility] Comment on above: Performed By: #### C BC #### [facility] [address] [place] [address] Dr. Angelo Ballesteros PLT 294 103/ul Normal 150-450 [facility] Comment on above: Performed By: #### C BC #### [facility] [address] [place] [address] Dr. Angelo Ballesteros RBC 4.79 106/ul Normal 4.20-5.40 [facility] Comment on above: Performed By: #### C BC #### [facility] [address] [address] [address] Angelo Ballesteros WBC 8.0 103/ul Normal 4.0-11.0 [facility] Comment on above: Performed By: #### C BC #### [facility] [address] [address] [address] Angelo Ballesteros GLYCOHEMOGLOBIN A1Con 2022 ADA RECOMMENDATION SEE BELOW Normal [facility] Comment on above: Result Comment: ADA RECOMMENDED LIMIT 4.0 - 6.0 ADA THERAPEUTIC TARGET < 7.0 ACTION SUGGESTED > 7.0 Performed By: #### A 1C #### [facility] [address] [place] [address] Dr. Angelo Ballesteros Glucose [Mass/Vol] 160 mg/dL Normal [facility] Comment on above: Performed By: #### A 1C #### [facility] [address] [place] [address] Dr. Angelo Ballesteros HbA1c (Bld) [Mass fraction] 7.2 % Critically high 4.5-6.2 [facility] Comment on above: Performed By: #### A 1C #### [facility] [address] [place] [address] Dr. Angelo Ballesteros LIPID PROFILEon 01-15-2023 CHOL-HDL RATIO NORM SEE BELOW Normal [facility] Comment on above: Result Comment: 3.3 - 4.4 LOW RISK 4.4 - 7.1 AVERAGE RISK 7.1 - 11.0 MODERATE RISK >11.0 HIGH RISK Performed By: #### T SH, LIVER, BMP, LIPID #### [facility] [address] [place] [address] Dr. Angelo Ballesteros Cholesterol [Mass/Vol] 219 mg/dL Critically high <=200 [facility] Comment on above: Performed By: #### T SH, LIVER, BMP, LIPID #### [facility] [address] [place] [address] Dr. Angelo Ballesteros Cholesterol in HDL [Mass/Vol] 41 mg/dL Normal 40-60 [facility] Comment on above: Performed By: #### T SH, LIVER, BMP, LIPID #### [facility] [address] [address] [address] Angelo Ballesteros Cholesterol in LDL [Mass/Vol] 100.6 mg/dL Normal [facility] Comment on above: Performed By: #### T SH, LIVER, BMP, LIPID #### [facility] [address] [address] [address] Angelo Ballesteros Cholesterol.total/ Cholesterol in HDL [Mass ratio] 5.3 {ratio} Normal [facility] Comment on above: Performed By: #### T SH, LIVER, BMP, LIPID #### [facility] [address] [address] [address] Angelo Ballesteros HDL NORMAL > or = 60 mg/dl - LO W CARDIOVASCULAR RISK <40 mg/dl - HIGH CARDIOVASCULAR RISK Normal [facility] Comment on above: Performed By: #### T SH, LIVER, BMP, LIPID #### [facility] [address] [address] [address] Angelo Ballesteros LDL CALC NORMAL SEE BELOW Normal [facility] Comment on above: Result Comment: <100 mg/dl OPTIMAL 100 - 129 mg/dl NEAR OR ABOVE OPTIMAL 130 - 159 mg/dl BORDERLINE HIGH 160 - 189 mg/dl HIGH >190 mg/dl VERY HIGH Performed By: #### T SH, LIVER, BMP, LIPID #### [facility] [address] [address] [address] Angelo Ballesteros Triglyceride [Mass/Vol] 387 mg/dL Critically high <=150 [facility] Comment on above: Performed By: #### T SH, LIVER, BMP, LIPID #### [facility] [address] [address] [address] Angelo Ballesteros VLDL CALC 77.4 mg/dL Normal [facility] Comment on above: Performed By: #### T SH, LIVER, BMP, LIPID #### [facility] [address] [address] [address] Angelo Ballesteros LIVER PROFILEon 05-16-2023 Albumin [Mass/Vol] 3.7 g/dL Normal 3.4-5.0 [facility] Comment on above: Performed By: #### T SH, LIVER, BMP, LIPID #### [facility] [address] [address] [address] Angelo Ballesteros Albumin/Globulin [Mass ratio] 1.1 {ratio} Normal [facility] Comment on above: Performed By: #### T SH, LIVER, BMP, LIPID #### [facility] [address] [place] [address] Dr. Angelo Ballesteros ALP [Catalytic activity/Vol] 64 U/L Normal 46-116 [facility] Comment on above: Performed By: #### T SH, LIVER, BMP, LIPID #### [facility] [address] [place] [address] Dr. Angelo Ballesteros ALT [Catalytic activity/Vol] 24 U/L Normal 14-59 [facility] Comment on above: Performed By: #### T SH, LIVER, BMP, LIPID #### [facility] [address] [place] [address] Dr. Angelo Ballesteros AST [Catalytic activity/Vol] 17 U/L Normal 15-37 [facility] Comment on above: Performed By: #### T SH, LIVER, BMP, LIPID #### [facility] [address] [place] [address] Dr. Angelo Ballesteros BILI, CONJUGATED 0.1 mg/dL Normal 0.0-0.2 [facility] Comment on above: Performed By: #### T SH, LIVER, BMP, LIPID #### [facility] [address] [place] [address] Dr. Angelo Ballesteros Bilirubin [Mass/Vol] 0.3 mg/dL Normal 0.2-1.0 [facility] Comment on above: Performed By: #### T SH, LIVER, BMP, LIPID #### [facility] [address] [place] [address] Dr. Angelo Ballesteros Globulin (S) [Mass/Vol] 3.3 g/dL Normal [facility] Comment on above: Performed By: #### T SH, LIVER, BMP, LIPID #### [facility] [address] [address] [address] Angelo Ballesteros Protein [Mass/Vol] 7.0 g/dL Normal 6.4-8.2 [facility] Comment on above: Performed By: #### T SH, LIVER, BMP, LIPID #### [facility] [address] [address] [address] Angelo Ballesteros PROF CHEM 8 (BAS METB)on Anion gap [Moles/Vol] 13.7 mmol/L Normal [facility] Comment on above: Performed By: #### T SH, LIVER, BMP, LIPID #### [facility] [address] [address] [address] Angelo Ballesteros Calcium [Mass/Vol] 8.4 mg/dL Critically low 8.5-10.1 [facility] Comment on above: Performed By: #### T SH, LIVER, BMP, LIPID #### [facility] [address] [place] [address] Dr. Angelo Ballesteros Chloride [Moles/Vol] 105 mmol/L Normal 98-107 [facility] Comment on above: Performed By: #### T SH, LIVER, BMP, LIPID #### [facility] [address] [place] [address] Dr. Angelo Ballesteros CO2 [Moles/Vol] 27.0 mmol/L Normal 21.0-32.0 [facility] Comment on above: Performed By: #### T SH, LIVER, BMP, LIPID #### [facility] [address] [place] [address] Dr. Angelo Ballesteros Creatinine [Mass/Vol] 1.01 mg/dL Normal 0.55-1.02 [facility] Comment on above: Performed By: #### T SH, LIVER, BMP, LIPID #### [facility] [address] [place] [address] Dr. Angelo Ballesteros EGFR-AF IVORIAN >60 Normal >=60 [facility] Comment on above: Performed By: #### T SH, LIVER, BMP, LIPID #### [facility] [address] [place] [address] Dr. Angelo Ballesteros EGFR-NON AF IVORIAN 56 mL/min/1.73m2 Critically low >=60 [facility] Comment on above: Performed By: #### T SH, LIVER, BMP, LIPID #### [facility] [address] [address] [address] Angelo Ballesteros Glucose [Mass/Vol] 109 mg/dL Critically high 74-106 [facility] Comment on above: Performed By: #### T SH, LIVER, BMP, LIPID #### [facility] [address] [address] [address] Angelo Ballesteros Potassium [Moles/Vol] 3.7 mmol/L Normal 3.5-5.1 [facility] Comment on above: Performed By: #### T SH, LIVER, BMP, LIPID #### [facility] [address] [address] [address] Angelo Ballesteros Sodium [Moles/Vol] 142 mmol/L Normal 136-145 [facility] Comment on above: Performed By: #### T SH, LIVER, BMP, LIPID #### [facility] [address] [address] [address] Angelo Ballesteros Urea nitrogen [Mass/Vol] 11.0 mg/dL Normal 7.0-18.0 [facility] Comment on above: Performed By: #### T SH, LIVER, BMP, LIPID #### [facility] [address] [place] [address] Dr. Angelo Ballesteros Urea nitrogen/Creatinin e [Mass ratio] 10.9 mg/mg Normal [facility] Comment on above: Performed By: #### T SH, LIVER, BMP, LIPID #### [facility] [address] [address] [address] Angelo Ballesteros TSHon 01-15-2023 TSH 1.845 uIU/mL Normal 0.358-3.740 [facility] Comment on above: Performed By: #### T SH, LIVER, BMP, LIPID #### [facility] [address] [address] [address] Angelo Ballesteros MG MAMM SCREEN 3D SUDARSHAN CADon 08-07-2022 MG MAMM SCREEN 3D SUDARSHAN CAD Patient: MARYBETH VALDEZ Exam Date: 08/07/2022 : 1960 Gender:F Ordering : DR ADAM MCKEON . Admission #: [id number] Family : Order #: [id number] CLICK HERE TO VIEW EXAM RADIOLOGY REPORT [...] colon cancer at age 85. LOCATION: [facility] BREAST COMPOSITION: Heterogeneously dense,which may obscure [...] Cantrell MD on 08/07/2022 at 15:46 Normal [facility] GLYCOHEMOGLOBIN A1Con 2021 ADA RECOMMENDATION SEE BELOW Normal [facility] Comment on above: Result Comment: ADA RECOMMENDED LIMIT 4.0 - 6.0 ADA THERAPEUTIC TARGET < 7.0 ACTION SUGGESTED > 7.0 Performed By: #### A 1C #### [facility] [address] [address] [address] Angelo Ballesteros Glucose [Mass/Vol] 197 mg/dL Normal [facility] Comment on above: Performed By: #### A 1C #### [facility] [address] [place], [place] [address] Dr. Angelo Ballesteros HbA1c (Bld) [Mass fraction] 8.5 % Critically high 4.5-6.2 [facility] Comment on above: Performed By: #### A 1C #### [facility] [address] [address] [address] Angelo Ballesteros GLYCOHEMOGLOBIN A1Con 2021 ADA RECOMMENDATION SEE BELOW Normal [facility] Comment on above: Result Comment: ADA RECOMMENDED LIMIT 4.0 - 6.0 ADA THERAPEUTIC TARGET < 7.0 ACTION SUGGESTED > 7.0 Performed By: #### A 1C #### [facility] [address] [address] [address] Angelo Ballesteros Glucose [Mass/Vol] 194 mg/dL Normal [facility] Comment on above: Performed By: #### A 1C #### [facility] [address] [address] [address] Angelo Ballesteros HbA1c (Bld) [Mass fraction] 8.4 % Critically high 4.5-6.2 [facility] Comment on above: Performed By: #### A 1C #### [facility] [address] [address] [address] Angelo Ballesteros Initial Visit (Pain Medicine )on 07-01-2019 Initial Visit (Pain Medicine) Chief Complaint Ankle Pain left ankle pain...Surgery in 2016 for fractured ankle..Has had ankle pain for [...] PM Vitals Vital Signs Recorded: 01Jul2019 01:29PM Rccnjtzcafw34.4 F Heart Gcpf929 Egezozjzeqr80 Bubrznjn210 Cnyvstbwe345 Height5 ft 7 in Opeodq913 lb BMI Jupaxovmtt71.19 BSA Calculated1.93 Pain Scale8 Physical Exam Vital [...] preserved. NEURO: Alert and oriented X 3 TRANSIT SPECIALIST normal as tested without focal neurological deficit [...] high given the patient clinical presentation, labs, DRY BOX OPERATOR data, radiology reports, and other tests as [...] visit with any questions or concerns at [phone] M-F 8-4 pm Signatures Electronically signed by : Mari Howe MD; Jul 01 2019 2:20PM EST (Author) Normal Master Equationon 06-04-2018 CNOV Office Visit ([place]) ----MARYBETH VALDEZ ([id number]) 1960 [facility] Time Provider Znvreyccii48/3/18 1:00 PM ELENITA CHENG During your visit [...] or problems.This note was partially generated using Sevence voice recognition system, andthere may be some [...] by ELENITA CHENG MD on 06/05/18 Normal [facility] PROGRESSon 06-04-2018 Protein mass conc HNO ID: [id number] thor: Elenita Dickens: (none)Author Type: PhysicianType: Progress [...] knows to call us [email or web address] if the patients pain increases.Patient knows how to reach us if there are any questions or problems.This note was partially generated using Sevence voice recognition system,and there may be some incorrect words, spellings, and punctuation thatwere not noted in checking the note before saving.Elenita Cheng M.D. [facility] CNOVon 04-30-2018 CNOV Office Visit ([place]) ----MARYBETH VALDEZ ([id number]) 1960 FDate Time Provider Department04/30/18 1:15 PM ELENITA CHENG During your visit today, we recorded the following information about you:Elenita Cheng MD 05/01/2018 6:15 AM SignedChrisradha Valdez returns today to follow up for [...] or problems.This note was partially generated using Sevence voice recognition system, andthere may be some [...] by ELENITA CHENG MD on 05/01/18 Normal [facility] PROGRESSon 04-30-2018 Protein mass conc HNO ID: [id number] thor: Elenita ChengSerflorentinoe: (none)Author Type: PhysicianType: Progress NotesFiled: 05/01/2018 6:15 [...] knows to call us or [email or web address] if the patients pain increases.Patient knows how to reach us if there are any questions or problems.This note was partially generated using Sevence voice recognition system,and there may be some incorrect words, spellings, and punctuation thatwere not noted in checking the note before saving.Elenita Cheng M.D. [facility] CNOVon 09-11-2017 CNOV Office Visit ([place]) ----NHIMARYBETH ([id number]) 1960 FDate Time Provider Department09/11/17 1:15 PM ELENITA CHENG During your visit today, we recorded the following information about you:Elenita Cheng MD 09/11/2017 2:25 PM AliyahChdarnell Valdez returns today to follow up/discuss results of left foot MRIwhich was completed on 09/01. She is still concerned about the amount ofstiffness she still has. She states she has pain is about the 4/10.Do you have a metal allergy?: NoCurrent Dx: [...] there are any questions or problems.Liam Betancourt, DOFellowTEACHING PHYSICIAN STATEMENT:I personally saw and evaluated the [...] by ELENITA CHENG MD on 09/11/17 Normal [facility] PROGRESSon 09-11-2017 Protein mass conc HNO ID: [id number] thor: Elenita ChengService: (none)Author Type: PhysicianType: Progress NotesFiled: 09/11/2017 2:25 PMNote Text:Marybeth Valdez returns today to follow up/discuss results of left footMRI which was completed on 09/01. She is still concerned about the amountof stiffness she still has. She states she has pain is about the 4/10.Do you have a metal allergy?: NoCurrent Dx: [...] knows to call us or [email or web address] if the patients pain increases.Patient knows how to reach us if there are any questions or problems.Liam Betancourt, DOFellowTEACHING PHYSICIAN STATEMENT:I personally saw and evaluated the patient today. I personally obtainedthe landaverde and critical portions of the history and physical exam. I reviewedthe resident's/fellow's documentation and discussed the patient with theresident/fellow. I agree with the resident's/fellow's medicaldecision-making as documented.Gayla Scruggs M.D. [facility] 09-01-2017 ALL[facility] HNO ID: [id number] thor: Brianna Colón (Tech)vice: RadiologyAuthor Type: TechnicianType: Allied HealthFiled: 09/01/2017 11:42 AMNote Text: Radiology Service Progress NotePATIENT NAME: Marybeth Byers: [id number] OF SERVICE: September 01, 2017TIME: 11:30 AMPATIENT IDENTITY VERIFICATION COMPLETED USING TWO (2) METHODS: Patientconfirmed name verbally and Date of .PATIENT GENDER DATA: Female. status: : NoBreastfeeding status: NO.PATIENT RELEVANT IMPLANT DATA REVIEWED: YesRADIOLOGY DEPARTMENT: MR; Exam(s) Completed: Lower MSK: Ankle/Hind Foot,leftPERIPHERAL IV DATA: Not applicableSIGNED BY: Serena Colón 2016 11:30 AM [facility] MRI FOOT/TOES WO IVCON LTon 09-01-2017 MRI FOOT/TOES WO IVCON LT * * *Final Report* * *DATE OF EXAM: Sep 01 2017 11:43AM [facility] 0194 - MRI FOOT/TOES WO IVCON LT [...] mm osteochondral lesion medial aspect talar dome, unchanged.Personal Care Aide: NIKITA Transcribe Date/Time: Sep 01 2017 12:12PDictated by : KELSIE VERNON MDThis examination was interpreted and the report reviewed and electronically signed by: KELSIE VERNON MD on Sep 01 2017 12:29PM [id number] [facility] 08-21-2017 [facility] Office Visit ([place]) ----MARYBETH VALDEZ ([id number]) 1960 FDate Time Provider Mvblryqxxx81/20/17 1:15 PM ELENITA CHENG During your visit today, we recorded the following information about you:Elenita Cheng MD 08/21/2017 2:16 PM Killian Valdez returns today to follow [...] [facility]. She states she did not do a lot of over walking.The airport in [facility] was small. She avoid the sand and avoided uneven ground.She did have to walk a lot in [place]. Once she arrived in [facility], her footswelled up. She was [...] has been 7/10 - 10/10 at times. Rita feels like her foot is very stiff, [...] tendinitis, left [M76.72]Order(s):MRI FOOT/TOES WO IVCON LT [[id number]] Order #: [id number] FUTUREPrescriptions as of 08/21/2017 Sig: ETODOLAC ER [...] Status:Closed by ELENITA CHENG MD on 08/21/17 [facility] PROGRESSon 08-21-2017 Protein mass conc HNO ID: [id number] thor: Elenita ChengSerflorentinoe: (none)Author Type: PhysicianType: Progress NotesFiled: 08/21/2017 2:16 [...] did well up until staying in [facility] 08/05 through 08/15. Shestates she did not do a lot of over walking. [facility] She avoid the sand and avoided uneven ground. [place] to [place]. Once she arrived in [facility], her foot swelled up. She [...] stretching, shoe or modifications without resolution. Therefore, Iwrobles order an MRIHPI explored in detail with patient and edited as necessary.At the conclusion of the visit the patient voiced understanding andagreement with the plan. The patient knows to call us or [email or web address] if the patients pain increases.Patient knows how to reach us if there are any questions or problems.Elenita Cheng M.D. Normal [facility] Encounters Encounter Date Encounter Type Care Provider Facility Start: 01-15-2023 End: 01-16-[address] ADAM MCKEON Facility:[facility] Start: 08-07-2022 End: 08-08-[address] RASHID CANTRELL Facility:[facility] Start: 07-18-2022 End: 07-19-2022 ambulatory DR ADAM MCKEON Facility:[facility] Start: 04-16-2022 End: 04-17-[address] ADAM MCKEON Facility:[facility] Start: 01-18-2022 End: 01-19-[address] RASHID CANTRELL Facility:[facility] Start: 06-04-2018 End: 06-04-2018 Patient encounter ELENITA CHENG [facility] Start: 04-30-2018 End: 04-30-2018 Patient encounter ELENITA CHENG [facility] Start: 09-11-2017 End: 09-11-2017 Patient encounter ELENITA CHENG [facility] Start: 09-01-2017 Ambulatory ELENITA CHENG [facility] Start: 08-21-2017 End: 08-21-2017 Patient encounter ELENITA CHENG [facility] Payers Date Payer Category Payer Unknown [id number] 2.16.84 [id number] 1960 Unknown [id number] 2.16.84 [id number] 1960 Unknown [id number] 2.16.84 [id number] 1960 Unknown [id number] 2.16.84 [id number] 1960 Unknown [id number] 2.16.84 [id number] 1958 Unknown [id number] Clinical Note 01-18-2022 Note Date & Type Note Facility 01-18-2022 Note PROCEDURE: XR FOOT L T MIN 3 VIEWS COMPARISON: 09/16/2019 HISTORY: Pain in left foot FINDINGS: BONES:No fracture, acute abnormality, or significant arthropathy. SOFT TISSUES:Negative. No visible soft tissue swelling. EFFUSION:None visible. OTHER: Negative. IMPRESSION: No acute fracture Electronically authenticated by: RASHID CANTRELL Date: 2022-01-18 10:50 [facility] Summary Purpose Family History No Family History [...] DATE CREATED AUTHOR AUTHOR'S ORGANIZ ATION 07/03/2018 [facility] DATE CREATED AUTHOR AUTHOR'S ORGANIZ ATION 07/02/2019 [employer] DATE CREATED AUTHOR AUTHOR'S ORGANIZ ATION 01/16/[address] [facility] FOR RECORDS PERTAINING TO PATIENTS WHO [...] BE BASED ON THE PRIMARY CLINICAL RECORDS. [facility]. provides no warranty or guarantee of the accuracy or completeness of information in this document.
[2024-01-15 15:08] LABS: Basophils Percent Auto 0.2 % (0.2-2.0); Hematocrit 41.7 % (36.0-48.0); Hemoglobin 13.1 g/dL (12.0-16.0); Immature Granulocytes Abs Auto 0.01 10^3/uL (0.00-0.03); Immature Granulocytes Pct Auto 0.1 % (0.0-0.5); Lymphocytes Absolute Auto 3.7 10^3/uL (1.2-3.8); Lymphocytes Percent Auto 45.3 % (20.5-60.0); Mean Corpuscular HGB Conc 31.4 g/dL (29.9-35.2); Mean Corpuscular Volume 92.3 fL (81.0-99.0); Mean Platelet Volume 11.3 fL (9.5-13.5); Monocytes Absolute Auto 0.7 10^3/uL (0.3-0.8); Monocytes Percent Auto 8.3 % (1.7-12.0); Neutrophils Absolute Auto 3.7 10^3/uL (1.4-6.5); Neutrophils Percent Auto 46.1 % (43.0-75.0); Platelet Count 258 10^3/uL (150-450); Red Blood Count 4.52 10^6/uL (4.20-5.40); Red Cell Distribution Width 13.2 % (11.0-15.0); White Blood Count 8.1 10^3/uL (4.0-11.0)
[2024-01-15 15:16] LABS: Microalbumin Urine Random 4.2 mg/dL (<=30.0)
[2024-01-15 15:30] LABS: Estimated Average Glucose 189 mg/dL; Glycohemoglobin A1C 8.2 % (4.5-6.2)
[2024-01-15 15:31] LABS: Alanine Aminotransferase 28 U/L (14-59); Albumin Level 3.7 g/dL (3.4-5.0); Alkaline Phosphatase 79 U/L (46-116); Anion Gap 11.5; Aspartate Amino Transferase 20 U/L (15-37); BUN Creatinine Ratio 16.1; Bilirubin Direct 0.1 mg/dL (0.0-0.2); Bilirubin Total 0.8 mg/dL (0.2-1.0); Calcium 9.4 mg/dL (8.5-10.1); Carbon Dioxide 31.2 mmol/L (21.0-32.0); Chloride 102 mmol/L (98-107); Chol HDL Ratio 2.9; Cholesterol 144 mg/dL (<=200); Estimated GFR (African America >60 (>=60); Estimated GFR (Non-African Ame >60 (>=60); Globulin 3.6 g/dL; Glucose 116 mg/dL (74-106); HDL Cholesterol 50 mg/dL (40-60); LDL Cholesterol Calculated 66.2 mg/dL; Potassium 3.7 mmol/L (3.5-5.1); Sodium 141 mmol/L (136-145); Thyroid Stimulating Hormone 1.633 uIU/mL (0.358-3.740); Total Protein 7.3 g/dL (6.4-8.2); Triglycerides 139 mg/dL (<=150); VLDL CHOLESTEROL 27.8 mg/dL
== END 2024-01-15 13:59 | disposition home or self-care (01) ==
PROVIDERS: PCP Family Medicine; Visit Provider Family Medicine
DX: Z00.00 Encounter for general adult medical examination without abnormal findings (principal); E11.65 Type 2 diabetes mellitus with hyperglycemia
CPT/HCPCS: 36415; 80048; 80061; 80076; 82043; 83036; 84443; 85025

== ENCOUNTER 2024-07-14 15:14 | Outpatient (OUT) | payer OTHER, SELFPAY ==
[2024-07-14 19:09] LABS: Estimated Average Glucose 240 mg/dL
== END 2024-07-14 15:15 | disposition home or self-care (01) ==
LOC: LAB 15:15
PROVIDERS: PCP Family Medicine; Visit Provider Family Medicine
DX: E11.65 Type 2 diabetes mellitus with hyperglycemia (principal)
CPT/HCPCS: 36415; 83036

== ENCOUNTER 2024-11-09 13:15 | Outpatient (OUT) | payer BC, SELFPAY ==
[2024-11-09 14:30] LABS: Estimated Average Glucose 249 mg/dL; Glycohemoglobin A1C 10.3 % (4.5-6.2)
== END 2024-11-09 13:16 | disposition home or self-care (01) ==
PROVIDERS: PCP Family Medicine; Visit Provider Family Medicine
DX: E11.65 Type 2 diabetes mellitus with hyperglycemia (principal)
CPT/HCPCS: 36415; 83036

== ENCOUNTER 2024-12-03 14:50 | Outpatient (OUT) | payer BC, SELFPAY ==
--- NOTE | 2024-12-03 15:25 | MM_ITS ---
Patient Name: JOSH HANKINS MR#: [id number] : 1960 Exam Date: 12/03/2024 Ordering Doctor: DR Jaron Foote . RADIOLOGY REPORT PROCEDURE: MM TOMOSYNTHESIS SCREENING BI COMPARISON: MM DIAGNOSTIC MAMMO UNILAT LT, 10/16/2023. MM TOMOSYNTHESIS SCREENING BI, 09/06/2023. MG MAMM SCREEN 3D SUDARSHAN CAD, 08/07/2022. MG MAMM SCREEN 3D SUDARSHAN CAD, 05/29/2021. INDICATIONS: Screening Calculator Name NCI Breast Cancer Risk Assessment Tool 5 Year Breast Cancer Risk 1.10% Lifetime Breast Cancer Risk 4.90% Personal Breast Cancer No Personal Ovarian Cancer No Treatments None Family Cancers Mother with uterine cancer at age 37; Grandmother-maternal with colon cancer at age 84. LOCATION: [facility] BREAST COMPOSITION: The breasts are heterogeneously dense,which may obscure small masses. FINDINGS: DIAGNOSTIC CATEGORY 0--INCOMPLETE: NEED ADDITIONAL IMAGING EVALUATION. RIGHT BREAST: No significant suspicious finding. LEFT BREAST: Asymmetry superior aspect of the left breast, posterior depth on MLO view only. RECOMMENDATIONS: ADDITIONAL MAMMOGRAPHIC VIEWS REQUIRED: LEFT BREAST - spot-compression/true lateral views, possible ultrasound recommended. PLEASE NOTE: A NORMAL MAMMOGRAM DOES NOT EXCLUDE THE POSSIBILITY OF BREAST CANCER. A CLINICALLY SUSPICIOUS PALPABLE LUMP SHOULD BE BIOPSIED. Dictated by: Chriss العراقي DO on 12/03/2024 at 16:33 Approved by: Chriss العراقي DO on 12/03/2024 at 16:37
== END 2024-12-03 14:51 | disposition home or self-care (01) ==
LOC: MAMMO 14:50
PROVIDERS: PCP Family Medicine; Visit Provider Family Medicine
DX: Z12.31 Encounter for screening mammogram for malignant neoplasm of breast (principal); R92.8 Other abnormal and inconclusive findings on diagnostic imaging of breast; Z80.8 Family history of malignant neoplasm of other organs or systems; Z80.0 Family history of malignant neoplasm of digestive organs
CPT/HCPCS: 77063; 77067

== ENCOUNTER 2025-05-14 11:59 | Outpatient (OUT) | payer BC, SELFPAY ==
--- OUTSIDE RECORDS SUMMARY | 2025-05-14 12:02 | XMS_ITS | Encounter Summary ---
Author Organization [facility] Address [address] [place] [address] Care Team Providers Care Correctional Cook Name Role Phone Hudson Hameed Primary Care Provider [phone] Source Comments In the event this information is protected by the Federal Confidentiality of Alcohol and Drug AbusePatient Records regulations: The Federal rules restrict any use of the information to criminally investigate or prosecute any alcohol or drug abuse patient.[facility] Encounter Details Date Type Department Care Team (Late st Contact Info) Description 02/13/2017 Get Medical Advice Orthopaedics [address] [place], [place] [phone] [place] [address] [place] [address] RE: Visit Follow Up Question Social History Tobacco Use Types Packs/Day Years Used Date Smoking Tobacco: Never Assessed Comments Unknown Sex and Gender Information Value Date Recorded Sex Assigned at Not on file Legal Sex Female 9:00 AM EST Gender Identity Not on file Sexual Orientation Not on file documented as of this encounter Plan of Treatment Not on file documented as of this encounter Visit Diagnoses Not on filedocumented in this encounter Care Teams Correctional Cook Relationship Specialty Start Date End Date Hudson Hameed PCP - General Family Medicine 09/11/16 documented as of this encounter
--- OUTSIDE RECORDS SUMMARY | 2025-05-14 12:02 | XMS_ITS | Encounter Summary ---
Author Organization [facility] Address [address] [place] [address] Care Team Providers Care Customer Professional Name Role Phone Hudson Hameed Primary Care Provider [phone] Source Comments In the event this information is protected by the Federal Confidentiality of Alcohol and Drug AbusePatient Records regulations: The Federal rules restrict any use of the information to criminally investigate or prosecute any alcohol or drug abuse patient.[facility] Encounter Details Date Type Department Care Team (Late st Contact Info) Description 02/11/2017 Get Medical Advice Orthopaedics [address] [place], [place] [phone] [place] [address] [place] [address] RE: Visit Follow Up Question Social History [...] on filedocumented in this encounter Care Teams Customer Professional Relationship Specialty Start Date End Date Hudson Hameed PCP - General Family Medicine 09/11/16 documented as of this encounter
--- OUTSIDE RECORDS SUMMARY | 2025-05-14 12:02 | XMS_ITS | Encounter Summary ---
Author Organization [facility] Address [address] [place] [address] Care Team Providers Care Sole Seamer Name Role Phone Hudson Hameed Primary Care Provider [phone] Source Comments In the event this information is protected by the Federal Confidentiality of Alcohol and Drug AbusePatient Records regulations: The Federal rules restrict any use of the information to criminally investigate or prosecute any alcohol or drug abuse patient.[facility] Encounter Details Date Type Department Care Team (Late st Contact Info) Description 05/07/2017 Get Medical Advice Orthopaedics [address] [place], [place] [phone] [place] [address] [place] [address] Non-Urgent Medical Question Social History Tobacco Use Types Packs/Day [...] on filedocumented in this encounter Care Teams Sole Seamer Relationship Specialty Start Date End Date Hudson Hameed PCP - General Family Medicine 09/11/16 documented as of this encounter
--- OUTSIDE RECORDS SUMMARY | 2025-05-14 12:02 | XMS_ITS | Encounter Summary ---
Author Organization [facility] Address [address] [place] [address] Care Team Providers Care Hand Fabric Cutter Name Role Phone Jaron Foote MD Primary Care Provider Jaron Foote MD Primary Care Provider [phone] Jaron Foote MD Unavailable Jaron Foote MD Unavailable Encounter Details Date Type Department Care Team (Late st Contact Info) Description 10/16/2023 Clinisync Result Encounter [facility] External Department Unsolicited Jaron Foote MD [address] [place] [phone] Social History Tobacco Use Types Packs/Day Years Used Date Smoking Tobacco: Never Assessed Comments Unknown Sex and Gender Information Value Date Recorded Sex Assigned at Not on file Legal Sex Female 7:28 PM EDT Gender Identity Female 01/08/2024 8:51 AM EDT Sexual Orientation Not on file documented as of this encounter Plan of Treatment Not on file documented as of this encounter Procedures Procedure Name Priority Date/Time Associated Diagnosis Comments US BREAST LT LIMITED 10/16/2023 1:35 PM EST documented in this encounter Results * US BREAST LT LIMITED (10/16/2023 1:35 PM EST) Anatomical Region Laterality Modality Other 10/16/2023 1:35 PM EST Narrative 10/16/2023 1:36 [place] [address] Ultrasound Report Signed Patient: JOSH VALDEZ MR#: [id number] : 1960 Acct:[id number] Age/Sex: 63 / F ADM Date: 10/16/23 Loc: MAMMO Attending Dr: Jaron Foote M.D. Ordering Physician: Jaron Foote M.D. Date of Service: 10/16/23 Procedure(s): US breast LT limited Accession Number(s): [id number] cc: Jaron Foote M.D. Patient Name: JOSH VALDEZ MR#: [id number] : 1960 Exam Date: 10/16/2023 Ordering Doctor: DR Jaron Foote . RADIOLOGY REPORT PROCEDURE: MM DIAGNOSTIC MAMMO UNILAT LT, 10/16/2023, 12:55 US BREAST LT LIMITED, 10/16/2023, 12:06 COMPARISON: MM TOMOSYNTHESIS SCREENING BI, 09/06/2023. MG MAMM SCREEN 3D SUDARSHAN CAD, 08/07/2022. MG MAMM SCREEN 3D SUDARSHAN CAD, 05/29/2021. MG MAMM SCREEN 3D SUDARSHAN CAD, 05/13/2020. INDICATIONS: abnormal mammogram of left breast R92.8 Calculator Name NCI Breast Cancer Risk Assessment Tool 5 Year Breast Cancer Risk 1.10% Lifetime Breast Cancer Risk 5.00% Personal Breast Cancer No Personal Ovarian Cancer No Treatments None Family Cancers Mother with uterine cancer at age 37; Grandmother-maternal with colon cancer at age 84. LOCATION: [facility] BREAST COMPOSITION: Heterogeneously dense,which may obscure small masses. FINDINGS: DIAGNOSTIC CATEGORY 2--BENIGN FINDING: LEFT BREAST: Spot magnification views demonstrate persistence of loose grouping of tiny calcifications within upper inner quadrant/subareolar region which appear to be overall stable back through 2020. Some variation between years appears to be due to obscuration by breast parenchyma. Ultrasound evaluation demonstrates normal appearing fibroglandular tissue. No mass or appreciable architectural distortion. Annual screening mammography recommended. RECOMMENDATIONS: ROUTINE MAMMOGRAM AND CLINICAL EVALUATION IN 12 MONTHS. PLEASE NOTE: A NORMAL MAMMOGRAM DOES NOT EXCLUDE THE POSSIBILITY OF BREAST CANCER. A CLINICALLY SUSPICIOUS PALPABLE LUMP SHOULD BE BIOPSIED. Dictated by: Bryant Ortiz M.D. on 10/16/2023 at 13:28 Approved by: Bryant Ortiz M.D. on 10/16/2023 at 13:35 Dictated By: Bryant Ortiz M.D. Signed By: 10/16/23 1336 DD/ 1335 TD/TT: Avid Editor: Procedure Note Radiology, Radiologist, MD - 10/16/2023 [place] [address] Ultrasound Report Signed Patient: JOSH VALDEZ MMR#: [id number] : 1960cct:[id number] Age/Sex: 63 / FADM Date: 10/16/23 Loc: MAMMO Attending Dr: Jaron Foote M.D. Ordering Physician: Jaron Foote M.D. Date of Service: 10/16/23 Procedure(s): US breast LT limited Accession Number(s): [id number] cc: Jaron Foote M.D. Patient Name: JOSH VALDEZ MR#: [id number] : 1960 Exam Date: 10/16/2023 Ordering Doctor: DR Jaron Foote . RADIOLOGY REPORT PROCEDURE: MM DIAGNOSTIC MAMMO UNILAT LT, 10/16/2023, 12:55 US BREAST LT LIMITED, 10/16/2023, 12:06 COMPARISON: MM TOMOSYNTHESIS SCREENING BI, 09/06/2023. MG MAMM [id number] SUDARSHAN CAD, 08/07/2022. MG MAMM SCREEN 3D SUDARSHAN CAD, 05/29/2021. MG MAMMSCREEN 3D SUDARSHAN CAD, 05/13/2020. INDICATIONS: abnormal mammogram of left breast R92.8 Calculator Name NCI Breast Cancer Risk Assessment Tool 5 Year Breast Cancer Risk 1.10% Lifetime Breast Cancer Risk 5.00% Personal Breast Cancer No Personal Ovarian Cancer No Treatments None Family Cancers Mother with uterine cancer at age 37;Grandmother-maternal with colon cancer at age 84. LOCATION: [facility] BREAST COMPOSITION: Heterogeneously dense,which may obscure smallmasses. FINDINGS: DIAGNOSTIC CATEGORY 2--BENIGN FINDING: LEFT BREAST: Spot magnification views demonstrate persistence of loose grouping of tiny calcifications within upper inner quadrant/subareolarregion which appear to be overall stable back through 2020. Some variationbetween years appears to be due to obscuration by breast parenchyma. Ultrasound evaluation demonstrates normal appearing fibroglandular tissue.No mass or appreciable architectural distortion. Annual screening mammography recommended. RECOMMENDATIONS: ROUTINE MAMMOGRAM AND CLINICAL EVALUATION IN 12 MONTHS. PLEASE NOTE: A NORMAL MAMMOGRAM DOES NOT EXCLUDE THE POSSIBILITY OFBREAST CANCER. A CLINICALLY SUSPICIOUS PALPABLE LUMP SHOULD BE BIOPSIED. Dictated by: Bryant Ortiz M.D. on 10/16/2023 at 13:28 Approved by: Bryant Ortiz M.D. on 10/16/2023 at 13:35 Dictated By: Bryant Ortiz M.D. Signed By:10/16/23 1336 DD/ 1335 TD/TT: Avid Editor: Jaron Foote MD [facility] Final Result documented in this encounter Visit Diagnoses Not on filedocumented in this encounter Care Teams Hand Fabric Cutter Relationship Specialty Start Date End Date Jaron Foote MD PCP - General Family Medicine 07/03/23 01/14/24 Jaron Foote MD PCP - General Family Medicine 01/15/24 Jaron Foote MD [address] [place] [phone] PCP - Medical [place] [employer] 09/24/23 10/15/24 Jaron Foote MD [address] [place] [address] PCP - [place] [employer] 12/01/24 documented as of this encounter
--- OUTSIDE RECORDS SUMMARY | 2025-05-14 12:02 | XMS_ITS | Encounter Summary ---
Author Organization [facility] Address [address] [place] [address] Care Team Providers Care Airport Operations Manager Name Role Phone Hudson Hameed Primary Care Provider [phone] Source Comments In the event this information is protected by the Federal Confidentiality of Alcohol and Drug AbusePatient Records regulations: The Federal rules restrict any use of the information to criminally investigate or prosecute any alcohol or drug abuse patient.[facility] Encounter Details Date Type Department Care Team (Late st Contact Info) Description 02/05/2018 Get Medical Advice Orthopaedics [address] [place], [place] [phone] [place] [address] [place] [address] RE: Non-Urgent Medical Question Social History Tobacco Use [...] on filedocumented in this encounter Care Teams Airport Operations Manager Relationship Specialty Start Date End Date Hduson Hameed PCP - General Family Medicine 09/11/16 documented as of this encounter
--- OUTSIDE RECORDS SUMMARY | 2025-05-14 12:02 | XMS_ITS | Encounter Summary ---
Author Organization [facility] Address [address] [place] [address] Care Team Providers Care Assembler Production Line Name Role Phone Hudson Hameed Primary Care Provider [phone] Source Comments In the event this information is protected by the Federal Confidentiality of Alcohol and Drug AbusePatient Records regulations: The Federal rules restrict any use of the information to criminally investigate or prosecute any alcohol or drug abuse patient.[facility] Encounter Details Date Type Department Care Team (Late st Contact Info) Description 04/23/2017 Get Medical Advice Orthopaedics [address] [place], [place] [phone] [place] [address] [place] [address] RE: Non-Urgent Medical Question Social History Tobacco [...] on filedocumented in this encounter Care Teams Assembler Production Line Relationship Specialty Start Date End Date Hudson Hameed PCP - General Family Medicine 09/11/16 documented as of this encounter
--- OUTSIDE RECORDS SUMMARY | 2025-05-14 12:02 | XMS_ITS | Encounter Summary ---
Author Organization [facility] Address [address] [place] [address] Care Team Providers Care Safety And Security Manager Name Role Phone Jaron Foote MD Primary Care Provider Jaron Foote MD Primary Care Provider Jaron Foote MD Unavailable Jaron Foote MD Unavailable Encounter Details Date Type Department Care Team (Late st Contact Info) Description 10/16/2023 Clinisync Result Encounter [facility] External Department Unsolicited Jaron Foote MD [address] [place] [phone] Social History Tobacco Use Types Packs/Day Years [...] Procedure Name Priority Date/Time Associated Diagnosis Comments MM DIAGNOSTIC MAMMO UNILAT LT 10/16/2023 1:35 PM EST documented in this encounter Results * MM DIAGNOSTIC MAMMO UNILAT LT (10/16/2023 1:35 PM EST) Anatomical Region Laterality Modality Other 10/16/2023 1:35 PM EST Narrative 10/16/2023 1:36 [place] [address] Mammography Report Signed Patient: JOSH VALDEZ MR#: [id number] : 1960 Acct:[id number] Age/Sex: 63 / F ADM Date: 10/16/23 Loc: MAMMO Attending Dr: Jaron Foote M.D. Ordering Physician: Jaron Foote M.D. Results: Date of Service: 10/16/23 Follow Up: Procedure(s): MM diagnostic mammo unilat LT Accession Number(s): [id number] cc: Jaron Foote M.D. Patient Name: JOSH VALDEZ MR#: [id number] : 1960 Exam Date: 10/16/2023 Ordering Doctor: DR Jaron Floyd RADIOLOGY REPORT PROCEDURE: MM DIAGNOSTIC MAMMO UNILAT [...] colon cancer at age 85. LOCATION: [facility] BREAST COMPOSITION: Heterogeneously dense,which may obscure small masses. FINDINGS: DIAGNOSTIC CATEGORY 2--BENIGN FINDING: LEFT BREAST: Spot magnification views demonstrate persistence of loose grouping of tiny calcifications within upper inner quadrant/subareolar region which appear to be overall stable back through 2019. Some variation between years appears to be [...] Ortiz M.D. Signed By: 10/16/23 1336 DD/ 133 TD/TT: Lubrication Equipment Servicer: Procedure Note Radiology, Radiologist, MD - 10/16/2023 [place] [address] Mammography Report Signed Patient: JOSH VALDEZ MMR#: [id number] : 1960cct:[id number] Age/Sex: 63 / FADM Date: 10/16/23 Loc: MAMMO Attending Dr: Jaron Foote M.D. Ordering Physician: Jaron Foote M.D.Results: Date of Service: 10/16/23Follow Up: Procedure(s): MM diagnostic mammo unilat LT Accession Number(s): [id number] cc: Jaron Foote M.D. Patient Name: JOSH VALDEZ MR#: [id number] : 1960 Exam Date: 10/16/2023 Ordering Doctor: DR Jaron Foote . RADIOLOGY REPORT PROCEDURE: MM DIAGNOSTIC MAMMO UNILAT LT, 10/16/2023, 12:55 US BREAST LT LIMITED, 10/16/2023, 12:06 COMPARISON: MM TOMOSYNTHESIS SCREENING BI, 09/06/2023. MG MAMM [id number] SUDARSHAN CAD, 08/07/2022. MG MAMM SCREEN 3D [...] colon cancer at age 85. LOCATION: [facility] BREAST COMPOSITION: Heterogeneously dense,which may obscure smallmasses. [...] M.D. Signed By:10/16/23 1336 DD/ 1335 TD/TT: Lubrication Equipment Servicer: Jaron Foote MD [facility] Final Result documented in this encounter Visit Diagnoses Not on filedocumented in this encounter Care Teams Safety And Security Manager Relationship Specialty Start Date End Date Jaron Foote MD PCP - General Family Medicine 07/03/23 01/14/24 Jaron Foote MD PCP - General Family Medicine 01/15/24 Jaron Foote MD [address] [place] [phone] PCP - Medical [place] [employer] 09/24/23 10/15/24 Jaron Foote MD [address] [place] [phone] PCP - [place] [employer] 12/01/24 documented as of this encounter
--- OUTSIDE RECORDS SUMMARY | 2025-05-14 12:02 | XMS_ITS | Clinical Summary ---
Author Organization [facility] Address [id number] [address] [place] [address] Care Team Providers Care Cna Per Diem Name Role Phone Jaron Foote MD Primary Care Provider [phone] Allergies Active Allergy Reactions Criticality Noted Date Comments Penicillins Rash Low 02/25/2017 Medications ALPRAZolam (XANAX) 0.5 mg tablet Take 0.5 mg by mouth. Active CETIRIZINE HCL (ZYRTEC ORAL) Take by mouth. A ctive cloNIDine (CATAPRES) 0.1 mg tablet Take 0.1 mg by mouth. Active tiZANidine (ZANAFLEX) 4 mg tablet Take 4 mg by mouth. Active venlafaxine (EFFEXOR) 75 mg tablet Take 75 mg by mouth. Active zolpidem (AMBIEN) 10 mg tablet Take 10 mg by mouth. Active fluocinonide (LIDEX) 0.05 % cream apply thin layer topically to EXTREMITIES twice a day 0 9 Active hydroCHLOROthia zide (HYDRODIURIL) 25 mg tablet 9 Active diclofenac sodium (VOLTAREN) 1 % gel Apply 2 g topically 4 (four) times a day. Compound mix nuerocream Active traMADol (ULTRAM) 50 mg tablet Take 50 mg by mouth every 6 (six) hours as needed for pain. Active gabapentin (NEURONTIN) 300 mg capsuleIndicati ons:Chronic pain of left ankle Take 1 capsule (300 mg total) by mouth 3 (three) times a day. 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 Increased super saturation numbers. Punctate stone right upper pole. Will monitor Assessment & Plan (02/25/2017 1:16 PM EDT): Doing well. KUB is negative. KUB in one year Family History Medical History Relation Name Comments Coronary artery disease Father Cancer Mother Coronary artery disease Mother Breast cancer Neg Hx Relation Name Status Comments Father Mother uterine ca Social History Tobacco Use Types Packs/Day Years Used Date Smoking Tobacco: Never Smokeless Tobacco: Current Alcohol Use Standard Drinks/Week Comments Yes 0 (1 standard drink = 0.6 oz pur e alcohol) AUDIT-C Answer Date Recorded Frequency of Alcohol Consumption Monthly or less 04/16/2019 Average Number of Drinks 1 or 2 019 Frequency of Binge Drinking Not on file 04/02 Childcare Answer Date Recorded Childcare Unknown 02/11/2019 Employment Answer Date Recorded Employment Unknown 02/11/2019 Purpose - Life Answer Date Recorded Purpose and direction in life Unknown Comments No Sex and Gender Information Value Date Recorded Sex Assigned at Not on file Legal Sex Female 11:22 AM EDT Gender Identity Not on file Sexual Orientation Not on file Last Filed Vital Signs Vital Sign Reading Time Taken Comments Blood Pressure 167/100 04/16/2019 11:52 AM EDT Pulse 107 04/16/2019 11:52 AM EDT Temperature - - Respiratory Rate 18 04/16/2019 11:52 AM EDT Oxygen Saturation - - Inhaled Oxygen Concentration - - Weight 81.2 kg (179 lb) 05/29/2021 2:17 PM EDT Height 170.2 cm (5' 7 ) 05/29/2021 2:17 PM EDT Body Mass Index 28.04 05/29/2021 2:17 PM EDT Plan of Treatment Health Maintenance Due Date Last Done Comments Tobacco Counseling 1960 Depression Screening 1973 Tobacco Screening 1973 Adult BMI Screening 1979 DTaP,Tdap and Td Vaccines (1 - Tdap) 1980 Zoster (Shingles) Vaccine (1 of 2) 2011 Influenza Vaccine 05/03/2025 06/19/2005, 06/27/2004 Medical Devices [place] [address] [facility] Care Teams Cna Per Diem Relationship Specialty Start Date End Date Jaron Foote MD PCP - General Family Medicine 05/23/21
--- OUTSIDE RECORDS SUMMARY | 2025-05-14 12:02 | XMS_ITS | Clinical Summary ---
Author Organization [facility] Address [address] [place] [id number] Care Team Providers Care Senior Environmental Engineer Name Role Phone Hudson Hameed Primary Care Provider [phone] Allergies Active Allergy Reactions Criticality Noted Date Comments Penicillins Rash 09/24/2016 Medications tiZANidine (ZANAFLEX) 4 mg tablet Take 4 mg by mouth three times daily. Active zolpidem (AMBIEN) 10 mg tab Take 10 mg by mouth at bedtime as needed. Active ALPRAZolam (XANAX) 0.5 mg tablet Take 0.5 mg by mouth as needed. Active cloNIDine HCl (CATAPRES) 0.1 mg tablet Take 0.1 mg by mouth twice daily. Active CETIRIZINE HCL (ZYRTEC ORAL) Take by mouth once daily. Active venlafaxine (EFFEXOR) 75 mg tablet Take 75 mg by mouth three times daily. Active etodolac (LODINE-XL) 500 mg 24 hr tablet Take 1 tablet by mouth once daily. 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 Last address used for calculation Not on file 08/11/2020 Comments Unknown Sex and Gender Information Value Date Recorded Sex Assigned at Not on file Legal Sex Female 9:00 AM EST Gender Identity Not on file Sexual Orientation Not on file Last Filed Vital Signs Vital Sign Reading Time Taken Comments Blood Pressure 136/67 12/25/2016 5:00 PM EDT Pulse 79 12/25/2016 5:00 PM EDT Temperature 36.1 C (97 F) 12/25/2016 4:29 PM EDT Respiratory Rate 15 12/25/2016 5:00 PM EDT Oxygen Saturation 98% 12/25/2016 5:00 PM EDT Inhaled Oxygen Concentration - - Weight - - Height - - Body Mass Index - - Plan of Treatment Health Maintenance Due Date Last Done Comments Anxiety Screening 1979 Depression Screening 1979 HIV Screening 1979 Hepatitis C Screening 1979 DTaP,Tdap,Td Vaccine (1 - Tdap) 1980 Cervical Cancer Screening [address] Colonography 2006 Cologuard (FIT-DNA) 2006 Colonoscopy 2006 Colorectal Cancer Screening 2006 Diabetes Screening 2006 Fecal Occult Blood 2006 Lipid Screening 2006 Sigmoidoscopy 2006 Pneumococcal Vaccine: 50+ (1 of 1 - PCV) 2011 Shingrix Vaccine (1 of 2) 2011 Influenza Vaccine (#1) 2025 RSV Vaccine (1 - 1-dose 75+ series) 2036 Medical Devices Implanted Type Area Business Control Specialist Device Identifier Shelf Expiration Date Model / Serial / Lot [employer] Xwrap-Wom, Donated Human Tissue Allograft, 2 X 6cm Implanted:Qty: 1 on 12/25/2016 at [facility] Implant Left: Bone - Ankle OTHER 09/30/2020 [id number] / / [id number] Description:Implanted at [address] [place] Suturetak Fiberwire 1 .5 [place] 2 [place] [employer] 26.2mm Suture - [id number] Implanted:Qty: 2 on 12/25/2016 at [facility] Suture [place] Left: Bone - Ankle [employer] 08/01/2018 [id number] / / [id number] Description:BIOCOMPOSITE SUT URE SHADI Insurance [facility] CHOICE PLUS Care Teams Senior Environmental Engineer Relationship Specialty Start Date End Date Hudson Hmaeed PCP - General Family Medicine 09/11/16
--- OUTSIDE RECORDS SUMMARY | 2025-05-14 12:02 | XMS_ITS | Encounter Summary ---
Author Organization [facility] Address [address] [place] [address] Care Team Providers Care Hadoop Consultant Name Role Phone Hudson Hameed Primary Care Provider [phone] Source Comments In the event this information is protected by the Federal Confidentiality of Alcohol and Drug AbusePatient Records regulations: The Federal rules restrict any use of the information to criminally investigate or prosecute any alcohol or drug abuse patient.[facility] Encounter Details Date Type Department Care Team (Late st Contact Info) Description 01/21/2018 Get Medical Advice Orthopaedics [address] [place], [place] [phone] [place] [address] [place] [address] RE: Non-Urgent Medical Question Social History Tobacco [...] on filedocumented in this encounter Care Teams Hadoop Consultant Relationship Specialty Start Date End Date Hudson Hameed PCP - General Family Medicine 09/11/16 documented as of this encounter
--- OUTSIDE RECORDS SUMMARY | 2025-05-14 12:02 | XMS_ITS | Encounter Summary ---
Author Organization [facility] Address [address] [place] [address] Care Team Providers Care Energy Efficiency Engineer Name Role Phone Hudson Hameed Primary Care Provider [phone] Source Comments In the event this information is protected by the Federal Confidentiality of Alcohol and Drug AbusePatient Records regulations: The Federal rules restrict any use of the information to criminally investigate or prosecute any alcohol or drug abuse patient.[facility] Encounter Details Date Type Department Care Team (Late st Contact Info) Description 01/20/2018 Get Medical Advice Orthopaedics [address] [place], [place] [phone] [place] [address] [place] [address] RE: Non-Urgent Medical Question Social History Tobacco [...] on filedocumented in this encounter Care Teams Energy Efficiency Engineer Relationship Specialty Start Date End Date Hudson Hameed PCP - General Family Medicine 09/11/16 documented as of this encounter
--- OUTSIDE RECORDS SUMMARY | 2025-05-14 12:02 | XMS_ITS | Clinical Summary ---
Author Organization [facility] Address [address] [place] [address] Care Team Providers Care Theater Projectionist Name Role Phone Jaron Foote MD Primary Care Provider [phone] Jaron Foote MD Unavailable Allergies Active Allergy Reactions Criticality Noted Date Comments Penicillins Fever,Hives,Rash,Cari rtness of breath,Unknown High 09/24/2016 Medications ALPRAZolam (Xanax) 1 MG tabletIndicatio ns:Generalized anxiety disorder Take 1 tablet (1 mg) by mouth 3 (three) times a day as needed for anxiety 90 tablet 04/13/2024 Active venlafaxine XR (Effexor XR) 75 MG 24 hr capsuleIndicati ons:Major depressive disorder, recurrent episode, mild,Major depressive disorder, recurrent, mild TAKE 1 CAPSULE BY MOUTH TWICE A DAY 60 capsule 11 08/24/2024 Active tiZANidine (Zanaflex) 4 MG tabletIndicatio ns:Fibromyalgia Take 1 tablet (4 mg) by mouth 3 (three) times a day as needed for muscle spasms 270 tablet 3 10/14/2024 Active losartan (Cozaar) 25 MG tabletIndicatio ns:Essential hypertension, benign Take 1 tablet (25 mg) by mouth Daily 90 tablet 3 10/14/2024 Active metoprolol tartrate (Lopressor) 100 MG tabletIndicatio ns:Essential hypertension, benign Take 1 tablet (100 mg) by mouth in the morning and 1 tablet (100 mg) before bedtime. 180 tablet 3 10/14/2024 02/12/202 6 Active traZODone (Desyrel) 150 MG tabletIndicatio ns:Primary insomnia Take 1 tablet (150 mg) by mouth at bedtime 90 tablet 3 12/09/2024 Active atorvastatin (Lipitor) 40 MG tabletIndicatio ns:Dyslipidemia Take 1 tablet (40 mg) by mouth at bedtime 90 tablet 3 12/17/2024 Active glipiZIDE (Glucotrol) 10 MG tabletIndicatio ns:Type 2 diabetes mellitus with hyperglycemia, without long-term current use of insulin (HCC) Take 2 tablets (20 mg) by mouth in the morning and 2 tablets (20 mg) in the evening. Take before meals. 360 tablet 3 02/15/2025 Active Semaglutide, 2 MG/DOSE, (Ozempic, 2 MG/DOSE,) 8 MG/3ML solution pen-injectorInd ications:Type 2 diabetes mellitus with hyperglycemia, without long-term current use of insulin (HCC) Inject 2 mg under the skin 1 (one) time per week 9 mL 3 02/15/2025 Active ARIPiprazole (Abilify) 15 MG tabletIndicatio ns:Major depressive disorder, recurrent, moderate (HCC) Take 1 tablet (15 mg) by mouth Daily 30 tablet 2 02/15/2025 Active Active Problems Problem Noted Date Diagnosed Date Abnormal mammogram of left breast 12/03/2024 Acute superficial gastritis without hemorrhage 0 01/15/2024 Arthritis 01/15/2024 Essential hypertension, benign 01/15/2024 Assessment & Plan (02/15/2025 3:52 PM EDT): BP controlled and monitor PRN. Assessment & Plan (11/16/2024 2:10 PM EDT): BP controlled and monitor PRN. Assessment & Plan (10/14/2024 2:18 PM EST): BP controlled and monitor PRN. Assessment & Plan (07/14/2024 2:44 PM EST): BP controlled and monitor PRN. Assessment & Plan (04/13/2024 2:23 PM EDT): BP controlled and monitor PRN. Assessment & Plan (02/12/2024 1:42 PM EDT): BP controlled but side effects from clonidine and stop. Add losartan. Monitor BP PRN. Assessment & Plan (01/15/2024 1:42 PM EDT): BP controlled and monitor PRN. Bilateral primary osteoarthritis of knee 024 Assessment & Plan (04/13/2024 2:22 PM EDT): Increased stiffness and start mobic. Try to stay active and walk regularly. Complex regional pain syndro me type 1 of left lower extremity 01/15/2024 Dyslipidemia 01/15/2024 Fibromyalgia 01/15/2024 Assessment & Plan (10/14/2024 2:19 PM EST): Pain stable and continue ultram and zanaflex PRN. Assessment & Plan (07/14/2024 2:36 PM EST): Pain worse with added stress. Continue ultram and zanaflex PRN. Assessment & Plan (01/15/2024 1:42 PM EDT): Pain worse with added stress. Continue ultram and zanaflex PRN. Generalized anxiety disorder 01/15/2024 Assessment & Plan (02/15/2025 3:53 PM EDT): Symptoms much worse and increase abilify. Continue effexor and refer for counseling. Assessment & Plan (11/16/2024 2:11 PM EDT): Symptoms improved with abilify but still present and increase dose. Use xanax PRN. Assessment & Plan (10/14/2024 2:19 PM EST): Symptoms unchanged and add abilify to effexor. Use xanax PRN. Assessment & Plan (07/14/2024 2:44 PM EST): Symptoms unchanged but overall improving and continue medication. Use xanax PRN. Assessment & Plan (04/13/2024 2:23 PM EDT): Symptoms unchanged but overall improving and continue medication. Use xanax PRN. Assessment & Plan (02/12/2024 1:42 PM EDT): Symptoms slightly better but still present and increase lamictal. Continue effexor. Assessment & Plan (01/15/2024 1:43 PM EDT): Symptoms much worse and add lamictal in addition to effexor. Use xanax PRN. Irritable bowel syndrome with constipation and d iarrhea 01/15/2024 Major depressive disorder, recurrent, moderate 0 01/15/2024 Assessment & Plan (02/15/2025 3:53 PM EDT): Symptoms much worse and increase abilify. Continue effexor and refer for counseling. Assessment & Plan (11/16/2024 2:11 PM EDT): Symptoms improved with abilify but still present and increase dose. Assessment & Plan (10/14/2024 2:19 PM EST): Symptoms unchanged and add abilify to effexor. Assessment & Plan (07/14/2024 2:44 PM EST): Symptoms unchanged but overall improving and continue medication. Assessment & Plan (04/13/2024 2:23 PM EDT): Symptoms unchanged but overall improving and continue medication. Assessment & Plan (02/12/2024 1:42 PM EDT): Symptoms slightly better but still present and increase lamictal. Continue effexor. Assessment & Plan (01/15/2024 1:43 PM EDT): Symptoms much worse and add lamictal in addition to effexor. Osteochondral defect of ankle 01/15/2024 Primary osteoarthritis of right knee 01/15/2024 Type 2 diabetes mellitus wit h hyperglycemia, without long-term current use of insulin 01/15/2024 Assessment & Plan (02/15/2025 3:53 PM EDT): BS improved and due for A1C. Increase ozempic. Assessment & Plan (11/16/2024 2:12 PM EDT): BS elevated and A1C 10.3. Stop januvia and start ozempic. Assessment & Plan (10/14/2024 2:19 PM EST): BS variable and due for A1C. Continue medication. Stick to ADA diet and limit carbs. Assessment & Plan (07/14/2024 2:45 PM EST): BS variable and due for A1C. Continue medication. Stick to ADA diet and limit carbs. Assessment & Plan (04/13/2024 2:24 PM EDT): BS variable and last A1C 8.2. Continue medication. Stick to ADA diet and limit carbs. Assessment & Plan (02/12/2024 1:42 PM EDT): BS variable and A1C 8.2. Add januvia and continue glipizide. Stick to ADA diet and limit carbs. Assessment & Plan (01/15/2024 1:43 PM EDT): BS variable and due to for A1C. Stick to ADA diet and limit carbs. Venous stasis 01/15/2024 Annual physical exam 01/15/2024 Primary insomnia 01/15/2024 Assessment & Plan (10/14/2024 2:19 PM EST): Sleeping okay with trazodone and continue. Assessment & Plan (07/14/2024 2:45 PM EST): Not sleeping well with trazodone and stop. Try ambien. Assessment & Plan (04/13/2024 2:23 PM EDT): Not sleeping well and try xanax at bedtime. Assessment & Plan (01/15/2024 1:43 PM EDT): Not sleeping well due to stress. Continue trazodone. Resolved Problems Problem Noted Date Diagnosed Date Resolved Date Moderate episode of recurren t major depressive disorder 09/04/2023 01/15/2024 Encounters Date Type Department Care Team Description 04/13/2025 Orders Only [facility] [address] [place] [phone] Jaron Foote MD 02/24/2025 Telephone [facility] [address] [place] [phone] Jaron Foote MD 02/15/2025 2:00 PM EDT Office Visit [facility] [address] [place] [phone] Jaron Foote MD Type 2 diabetes mellitus with hyperglycemia, without long-term current use of insulin (HCC) (Primary Dx); Essential hypertension, benign ; Major depressive disorder, recurrent, moderate (HCC); Generalized anxiety disorder 02/15/2025 Bamboo flowsheet [facility] [address] [place] [phone] Jaron Foote MD from Last 3 Months Social History Tobacco Use Types Packs/Day Years Used Date Smoking Tobacco: Never Smokeless Tobacco: Never Tobacco Cessation:Counseling Given: Not Answered Social Connection and Isolat ion Panel [NHANES] Answer Date Recorded In a typical week, how many times do you talk on the phone with family, friends, or neighbors? More than three times a week 01/08/2024 How often do you get togethe r with friends or relatives? Patient declined 01/08/2024 How often do you attend [facility] or latter day services? Patient declined 01/08/2024 Do you belong to any clubs o r organizations such as spiritism groups, unions, fraternal or athletic groups, or school groups? No 01/08/2024 How often do you attend meet ings of the clubs or organizations you belong to? Never 01/08/2024 Are you , , di vorced, , never , or living with a partner? 01/08/2024 AUDIT-C Answer Date Recorded Q1: How often do you have a drink containing alcohol? Monthly or less 01/08/2024 Q2: How many drinks containi ng alcohol do you have on a typical day when you are drinking? Patient does not drink Q3: How often do you have si x or more drinks on one occasion? Never 01/08/2024 Overall Financial Resource Strain (CARDIA) Answe r Date Recorded How hard is it for you to pa y for the very basics like food, housing, medical care, and heating? Patient declined 01/08/2024 [facility] - Occupational Stress Questionnaire Answer Date Recorded Do you feel stress - tense, restless, nervous, or anxious, or unable to sleep at night because your mind is troubled all the time - these days? Very much 01/08/2024 Exercise Vital Sign Answer Date Recorde d On average, how many days pe r week do you engage in moderate to strenuous exercise (like a brisk walk)? 7 days On average, how many minutes do you engage in exercise at this level? Patient declined 01/08/2024 Hunger Vital Sign Answer Date Recorded Within the past 12 months, y ou worried that your food would run out before you got the money to buy more. Never true 01/08/20 24 Within the past 12 months, t he food you bought just didn't last and you didn't have money to get more. Never true 01/08/2024 PRAPARE - Transportation Answer Date Re corded In the past 12 months, has l ack of transportation kept you from medical appointments or from getting medications? No 04/2024 In the past 12 months, has l ack of transportation kept you from meetings, work, or from getting things needed for daily living? No 01/08/2024 Housing Stability Vital Sign Answer Isaac e Recorded In the last 12 months, was t here a time when you were not able to pay the mortgage or rent on time? No 01/08/2024 In the last 12 months, how many places have you lived? 1 01/08/2024 In the last 12 months, was t here a time when you did not have a steady place to sleep or slept in a half-way (including now)? No 01/08/2024 Comments Unknown Sex and Gender Information Value Date Recorded Sex Assigned at Not on file Legal Sex Female 7:28 PM EDT Gender Identity Female 01/08/2024 8:51 AM EDT Sexual Orientation Not on file Last Filed Vital Signs Vital Sign Reading Time Taken Comments Blood Pressure 144/76 02/15/2025 2:23 PM EDT Pulse 100 02/15/2025 2:23 PM EDT Temperature 35.7 C (96.2 F) 02/15/2025 2:23 PM EDT Respiratory Rate 20 02/15/2025 2:23 PM EDT Oxygen Saturation 97% 02/15/2025 2:23 PM EDT Inhaled Oxygen Concentration - - Weight 86.2 kg (190 lb) 02/15/2025 2:23 PM EDT Height 170.2 cm (5' 7 ) 02/15/2025 2:23 PM EDT Body Mass Index 29.76 02/15/2025 2:23 PM EDT Plan of Treatment Health Maintenance Due Date Last Done Comments CT Colonography 1961 FIT-DNA 1961 FIT 1961 FOBT 1961 Sigmoidoscopy 1961 Pap Smear 1982 Cervical Cancer Screening 1991 HPV/Cotest 1991 Diabetes: Urine Protein Screening 01/14/2025 024 Influenza Vaccine (#1) 2025 06/19/2005, 2003 Diabetes: Hemoglobin A1C 05/12/2025 025, 01/15/2024, 07/20/2020, Additional history exists Colonoscopy 05/13/2025 05/13/2015 Colorectal Cancer Screening 05/13/2025 Mammogram 01/12/2026 01/12/2025, 0510/2024, 12/03/2024, Additional history exists Diabetes: Retinopathy Screening 04/13/2027 04/13/2025, 04/08/2025, 04/26/2023, Additional history exists Procedures Procedure Name Priority Date/Time Associated Diagnosis Comments DIABETIC RETINOPATHY SCREENING - OU - BOTH EYES Routine 04/13/2025 11:55 AM EDT BI MAMMOGRAM DIAGNOSTIC TOMOSYNTHESIS LEFT 01/12/2025 12:54 PM EDT HEMOGLOBIN A1C Routine 07/20/2020 COLONOSCOPY Routine 05/13/2015 12:00 PM EDT from Last 3 Months or Most Recently Relevant to Health Maintenance Results * Diabetic Retinopathy Screening - OU - Both Eyes (04/13/2025 11:55 AM EDT) Anatomical Region Laterality Modality Head Other Jaron Foote MD OPHTH PHOTOGRAPHY Final Result * Left diagnostic mammogram with tomosynthesis (01/12/2025 12:54 PM EDT) Anatomical Region Laterality Modality Breast Left Mammography 01/12/2025 12:5 4 PM EDT Narrative 01/12/2025 12:53 PM EDT [facility]AM [facility] PERFORMED [facility] 1961 [id number] EXAM: MAMM DIAGNOSTIC UNILAT LT W CAD, 01/12/2025 12:16 PM CLINICAL INDICATIONS: Abnormal mammogram, asymmetries in the upper posterior left breast screening study COMPARISON: None TECHNIQUE: Supplemental views of the left breast were obtained for diagnostic workup. Digital tomosynthesis images were obtained, with creation of synthetic 2D views. Computer aided detection was utilized. FINDINGS: The breasts are heterogeneously dense, which may obscure small masses. With additional imaging, the previously described asymmetry is no longer visualized and likely represented superimposed glandular tissue. There are no suspicious masses, calcifications, or areas of architectural distortion. IMPRESSION: No mammographic evidence of malignancy. BI-RADS: BI-RADS 1 - Negative RECOMMENDATION: Routine screening mammogram in 1 year. Patient was given the results before leaving the department. Finalized by Sukhdeep Curran MD on 01/12/2025 12:53 PM 1 c MAMM 1 [facility] Accredited Performing Facility: [facility] - Mammography/DEXA Imaging [address] [facility] [address] Procedure Note Radiology, Radiologist, - 01/12/2025 THIS EXAM WAS PERFORMED AT [facility] 1961 [id number] EXAM: MAMM DIAGNOSTIC UNILAT LT W CAD, 01/12/2025 12:16 PM CLINICAL INDICATIONS: Abnormal mammogram, asymmetries in the upperposterior left breast screening study COMPARISON: None TECHNIQUE: Supplemental views of the left breast were obtained for diagnostic workup.Digital tomosynthesis images were obtained, with creation of synthetic 2Dviews. Computer aided detection was utilized. FINDINGS: The breasts are heterogeneously dense, which may obscure small masses. With additional imaging, the previously described asymmetry is no longervisualized and likely represented superimposed glandular tissue. There are no suspicious masses, calcifications, or areas of architecturaldistortion. IMPRESSION: No mammographic evidence of malignancy. BI-RADS: BI-RADS 1 - Negative RECOMMENDATION: Routine screening mammogram in 1 year. Patient was given the results before leaving the department. Finalized by Sukhdeep Curran MD on 01/12/2025 12:53 PM 1 c MAMM 1 YR [facility] Accredited Performing Facility: [facility] - Mammography/DEXA Imaging [address] [facility] [address] Jaron Foote MD IMG BI PROCEDURES Final Result * (ABNORMAL) Hemoglobin A1c (07/20/2020) ANGIOTENSIN 1 CONV 7.0(H) 4.0 - 6.0 [facility] ESTIM. AVG GLU (EAG) 154.20 [facility] 07/20/2020 us Hudson Hameed LAB BLOOD ORDERABLES Final Res ult [facility] * Colonoscopy (05/13/2015 12:00 PM EDT) Anatomical Region Laterality Modality Endoscopy 05/13/2015 12:0 0 PM EDT Narrative 05/13/2015 12:00 PM EDT PERFORMED AT [facility] LOCATION:[id number] Procedure Note CONVERSION, GENERIC - 01/17/2023 PERFORMED AT [facility] LOCATION:[id number] Hudson F Zari ENDOSCOPY PROCEDURE ORDERABLES Final Result from Last 3 Months or Most Recently Relevant to [place] [phone] [facility] Care Teams Theater Projectionist Relationship Specialty Start Date End Date Jaron Foote MD PCP - General Family Medicine 01/15/24 Jaron Foote MD [address] [place] [address] PCP - [place] [facility] 12/01/24
--- OUTSIDE RECORDS SUMMARY | 2025-05-14 12:02 | XMS_ITS | Encounter Summary ---
Author Organization [facility] Address [address] [place] [address] Care Team Providers Care Airfield Engineer Officer Name Role Phone Jaron Foote MD Primary Care Provider [phone] Jaron Foote MD Unavailable Encounter Details Date Type Department Care Team (Late st Contact Info) Description 01/12/2025 External Result Encounter [facility] [address] [place] [address] Jaron Foote MD [address] [place] [address] Social History Tobacco Use Types Packs/Day Years Used Date Smoking Tobacco: Never Smokeless Tobacco: Never Social Connection and Isolat ion Panel [NHANES] Answer Date Recorded In a typical week, how many times do you talk on the phone with family, friends, or neighbors? More than three times a week 01/08/2024 How often do you get togethe r with friends or relatives? Patient declined 01/08/2024 How often do you attend chur ch or worship services? Patient declined 01/08/2024 Do you belong to any clubs o r organizations such as restoration groups, unions, fraternal or athletic groups, or [...] medical care, and heating? Patient declined 01/08/2024 [facility] - Occupational Stress Questionnaire Answer Date Recorded [...] place to sleep or slept in a care home (including now)? No 01/08/2024 Comments Unknown Sex and Gender Information Value Date Recorded Sex Assigned at Not on file Legal Sex Female 7:28 PM EDT Gender Identity Female 01/08/2024 8:51 AM EDT Sexual Orientation Not on file documented as of this encounter Plan of Treatment Not on file documented as of this encounter Procedures Procedure Name Priority Date/Time Associated Diagnosis Comments BI MAMMOGRAM DIAGNOSTIC TOMOSYNTHESIS LEFT 01/12/2025 12:54 PM EDT documented in this encounter Results * Left diagnostic mammogram with tomosynthesis (01/12/2025 12:54 PM EDT) Anatomical Region Laterality Modality Breast Left Mammography 01/12/2025 12:5 4 PM EDT Narrative 01/12/2025 12:53 PM EDT THIS EXAM WAS PERFORMED AT [facility] 1960 [id number] EXAM: MAMM DIAGNOSTIC UNILAT LT W CAD, [...] 12:53 PM 1 c MAMM 1 YR FDA Accredited Performing Facility: [facility] - Mammography/[facility] [address] [facility] [id number] Procedure Note Radiology, Radiologist, - 01/12/2025 THIS EXAM WAS PERFORMED AT [facility] 1960 [id number] EXAM: MAMM DIAGNOSTIC UNILAT LT W CAD, [...] 12:53 PM 1 c MAMM 1 YR FDA Accredited Performing Facility: [facility]amm[facility] [address] [facility] [address] Jaron Foote MD IMG BI PROCEDURES Final Result documented in this encounter Visit Diagnoses Not on filedocumented in this encounter Care Teams Airfield Engineer Officer Relationship Specialty Start Date End Date Jaron Foote MD PCP - General Family Medicine 01/15/24 Jaron Foote MD [address] [place] [address] PCP - [employer] 12/01/24 documented as of this encounter
--- OUTSIDE RECORDS SUMMARY | 2025-05-14 12:02 | XMS_ITS | Encounter Summary ---
Author Organization [facility] Address [address] [place] [address] Care Team Providers Care Electronic Warfare Technician Name Role Phone Jaron Foote MD Primary Care Provider [phone] Jaron Foote MD Unavailable Encounter Details Date Type Department Care Team (Late st Contact Info) Description 11/09/2024 Orders Only [facility] [address] [place] [address] Jaron Foote MD [address] [place] [address] Social History Tobacco Use Types Packs/Day Years [...] often do you attend chur ch or muslim services? Patient declined 01/08/2024 Do you belong to any clubs o r organizations such as congregational groups, unions, fraternal or athletic groups, or [...] medical care, and heating? Patient declined 01/08/2024 [facility] - Occupational Stress [...] place to sleep or slept in a chcf (including now)? No 01/08/2024 Comments Unknown Sex and Gender Information Value Date Recorded Sex Assigned at Not on file Legal Sex Female 7:28 PM EDT Gender Identity Female 01/08/2024 8:51 AM EDT Sexual Orientation Not on file documented as of this encounter Plan of Treatment Not on file documented as of this encounter Visit Diagnoses Not on filedocumented in this encounter Care Teams Electronic Warfare Technician Relationship Specialty Start Date End Date Jaron Foote MD PCP - General Family Medicine 01/15/24 Jaron Foote MD [address] [place] [address] PCP - Naun Ivey 12/01/24 documented as of this encounter
--- OUTSIDE RECORDS SUMMARY | 2025-05-14 12:02 | XMS_ITS | Encounter Summary ---
Author Organization [facility] Address [address] [place] [address] Care Team Providers Care Toe Trimmer Name Role Phone Hudson Hameed Primary Care Provider [phone] Source Comments In the event this information is protected by the Federal Confidentiality of Alcohol and Drug AbusePatient Records regulations: The Federal rules restrict any use of the information to criminally investigate or prosecute any alcohol or drug abuse patient.[facility] Encounter Details Date Type Department Care Team (Late st Contact Info) Description 02/13/2017 Patient Msg Medical Records [address] [place] [id number] Provider, Blake Appt. canceled on 03/06 and rescheduled on 03/04, please confirm this change in appt. date Social History Tobacco Use Types Packs/Day Years [...] on filedocumented in this encounter Care Teams Toe Trimmer Relationship Specialty Start Date End Date Hudson Hameed PCP - General Family Medicine 09/11/16 documented as of this encounter
--- OUTSIDE RECORDS SUMMARY | 2025-05-14 12:02 | XMS_ITS | Encounter Summary ---
Author Organization [facility] Address [address] [place] [address] Care Team Providers Care Baby Formula Worker Name Role Phone Hudson Hameed Primary Care Provider [phone] Source Comments In the event this information is protected by the Federal Confidentiality of Alcohol and Drug AbusePatient Records regulations: The Federal rules restrict any use of the information to criminally investigate or prosecute any alcohol or drug abuse patient.[facility] Encounter Details Date Type Department Care Team (Late st Contact Info) Description 03/15/2017 Get Medical Advice Orthopaedics [address] [place], [place] [id number] [place] [address] [place] [address] RE: Non-Urgent Medical Question Social History Tobacco [...] on filedocumented in this encounter Care Teams Baby Formula Worker Relationship Specialty Start Date End Date Hudson Hameed PCP - General Family Medicine 09/11/16 documented as of this encounter
--- OUTSIDE RECORDS SUMMARY | 2025-05-14 12:02 | XMS_ITS | Clinical Summary ---
Author Organization [facility] Address [address] [place] [address] Phone Care Team Providers Care Teacher Adult Education Name Role Phone Hudson Hameed MD Primary Care Provider + Social History Tobacco Use Types Packs/Day Years Used Date Smoking Tobacco: Never Assessed Comments Unknown Sex and Gender Information Value Date Recorded Sex Assigned at Not on file Legal Sex Female 8:49 AM EST Gender Identity Not on file Sexual Orientation Not on file Plan of Treatment Not on file Care Teams Teacher Adult Education Relationship Specialty Start Date End Date Hudson Hameed MD [address] [place] [address] PCP - General 09/03/16
--- OUTSIDE RECORDS SUMMARY | 2025-05-14 12:02 | XMS_ITS | Encounter Summary ---
Author Organization [facility] Address [address] [place] [place] [address] Care Team Providers Care Small Animal Veterinarian Name Role Phone Jaron Foote MD Primary Care Provider [phone] Jaron Foote MD Primary Care Provider Jaron Foote MD Unavailable Jaron Foote MD Unavailable Encounter Details Date Type Department Care Team (Late st Contact Info) Description 09/06/2023 [facility] Result Encounter [facility] External Department Unsolicited Jaron Foote MD [address] [place] [id number] Social History Tobacco Use Types Packs/Day Years [...] Name Priority Date/Time Associated Diagnosis Comments MM TOMOSYNTHESIS SCREENING BI 09/06/2023 2:45 PM EST documented in this encounter Results * MM TOMOSYNTHESIS SCREENING BI (09/06/2023 2:45 PM EST) Anatomical Region Laterality Modality Other 09/06/2023 2:45 PM EST Narrative 09/06/2023 2:46 PM EST [facility] [address] [place] [address] Mammography Report Signed Patient: JOSH VALDEZ MR#: [id number] : 1960 Acct:[id number] Age/Sex: 63 / F ADM Date: 09/06/23 Loc: MAMMO Attending Dr: Jaron Foote M.D. Ordering Physician: Jaron Foote M.D. Results: Date of Service: 09/06/23 Follow Up: Procedure(s): MM tomosynthesis screening BI Accession Number(s): [id number] cc: Jaron Foote M.D. Patient Name: JOSH VALDEZ MR#: [id number] : 1960 Exam Date: 09/06/2023 Ordering Doctor: DR Jaron Floyd RADIOLOGY REPORT PROCEDURE: MM TOMOSYNTHESIS SCREENING BI COMPARISON: MG MAMM SCREEN 3D SUDARSHAN CAD, 05/29/2021. MG MAMM SCREEN 3D SUDARSHAN CAD, 08/07/2022. INDICATIONS: screening Calculator Name NCI Breast Cancer Risk Assessment Tool 5 Year Breast Cancer Risk 1.10% Lifetime Breast Cancer Risk 5.00% Personal Breast Cancer No Personal Ovarian Cancer No Treatments None Family Cancers Mother with uterine cancer at age 37; Grandmother-maternal with colon cancer at age 84. LOCATION: [facility] BREAST COMPOSITION: Heterogeneously dense,which may obscure small masses. FINDINGS: DIAGNOSTIC CATEGORY 0--INCOMPLETE: NEED ADDITIONAL IMAGING EVALUATION. Scattered benign-appearing calcifications are present. Scattered benign-appearing lymph nodes are present. RIGHT BREAST: No significant suspicious finding. LEFT BREAST: Interval increase in a cluster of ill-defined microcalcifications upper inner quadrant, mid breast. Spot magnification required. RECOMMENDATIONS: ADDITIONAL MAMMOGRAPHIC VIEWS REQUIRED: LEFT BREAST - spot magnification PLEASE NOTE: A NORMAL MAMMOGRAM DOES NOT EXCLUDE THE POSSIBILITY OF BREAST CANCER. A CLINICALLY SUSPICIOUS PALPABLE LUMP SHOULD BE BIOPSIED. Dictated by: Julian Tang MD on 09/06/2023 at 14:42 Approved by: Julian Tang MD on 09/06/2023 at 14:44 Dictated By: Julian Tang M.D. Signed By: 09/06/23 1446 DD/ 1445 TD/TT: Kettle Firer: Procedure Note Radiology, Radiologist, - 09/06/2023 [place] [address] Mammography Report Signed Patient: JOSH VALDEZ MMR#: [id number] : 1960cct:[id number] Age/Sex: 63 / FADM Date: 09/06/23 Loc: MAMMO Attending Dr: Jaron Foote M.D. Ordering Physician: Jaron Foote M.D.Results: Date of Service: 09/06/23Follow Up: Procedure(s): MM tomosynthesis screening BI Accession Number(s): [id number] cc: Jaron Foote M.D. Patient Name: JOSH VALDEZ MR#: [id number] : 1960 Exam Date: 09/06/2023 Ordering Doctor: DR Jaron Floyd RADIOLOGY REPORT PROCEDURE: MM TOMOSYNTHESIS SCREENING BI COMPARISON: MG MAMM SCREEN 3D SUDARSHAN CAD, 05/29/2021. MG MAMM SCREEN 3DBIL CAD, 08/07/2022. INDICATIONS: screening Calculator Name NCI Breast Cancer Risk Assessment Tool 5 Year Breast Cancer Risk 1.10% Lifetime Breast Cancer Risk 5.00% Personal Breast Cancer No Personal Ovarian Cancer No Treatments None Family Cancers Mother with uterine cancer at age 37;Grandmother-maternal with colon cancer at age 84. LOCATION: [facility] BREAST COMPOSITION: Heterogeneously dense,which may obscure smallmasses. FINDINGS: DIAGNOSTIC CATEGORY 0--INCOMPLETE: NEED ADDITIONAL IMAGING EVALUATION. Scattered benign-appearing calcifications are present. Scattered benign-appearing lymph nodes are present. RIGHT BREAST: No significant suspicious finding. LEFT BREAST: Interval increase in a cluster of ill-defined microcalcifications upper inner quadrant, mid breast. Spot magnification required. RECOMMENDATIONS: ADDITIONAL MAMMOGRAPHIC VIEWS REQUIRED: LEFT BREAST - spot magnification PLEASE NOTE: A NORMAL MAMMOGRAM DOES NOT EXCLUDE THE POSSIBILITY OFBREAST CANCER. A CLINICALLY SUSPICIOUS PALPABLE LUMP SHOULD BE BIOPSIED. Dictated by: Julian Tang MD on 09/06/2023 at 14:42 Approved by: Julian Tang MD on 09/06/2023 at 14:44 Dictated By: Julian Tang M.D. Signed By:09/06/23 1446 DD/ 1445 TD/TT: Kettle Firer: Jaron Foote MD [facility] Final Result documented in this encounter Visit Diagnoses Not on filedocumented in this encounter Care Teams Small Animal Veterinarian Relationship Specialty Start Date End Date Jaron Foote MD PCP - General Family Medicine 07/03/23 01/14/24 Jaron Foote MD PCP - General Family Medicine 01/15/24 Jaron oFote MD [address] [place] [address] PCP - Medical [employer] 09/24/23 10/15/24 Jaron Foote MD [address] [place] [address] PCP - [employer] 12/01/24 documented as of this encounter
--- OUTSIDE RECORDS SUMMARY | 2025-05-14 12:02 | XMS_ITS | Encounter Summary ---
Author Organization [facility] Address [address] [place] [address] Care Team Providers Care Tobacco Sprayer Name Role Phone Jaron Foote MD Primary Care Provider Jaron Foote MD Unavailable Encounter Details Date Type Department Care Team (Late st Contact Info) Description 01/12/2025 Results Follow-Up [facility] [address] [place] [address] Jaron Foote MD [address] [facility] [place] [address] Left diagnostic mammogram with tomosynthesis Social History Tobacco Use Types Packs/Day Years [...] often do you attend chur ch or uatsdin services? Patient declined 01/08/2024 Do you belong to any clubs o r organizations such as yazdanism groups, unions, fraternal or athletic groups, or [...] medical care, and heating? Patient declined 01/08/2024 [facility] - Occupational Stress Questionnaire Answer Date Recorded [...] place to sleep or slept in a mcc (including now)? No 01/08/2024 Comments Unknown Sex and Gender Information Value Date Recorded Sex Assigned at Not on file Legal Sex Female 7:28 PM EDT Gender Identity Female 01/08/2024 8:51 AM EDT Sexual Orientation Not on file documented as of this encounter Plan of Treatment Not on file documented as of this encounter Visit Diagnoses Not on filedocumented in this encounter Care Teams Tobacco Sprayer Relationship Specialty Start Date End Date Jaron Foote MD PCP - General Family Medicine 01/15/24 Jaron Foote MD [address] [place] [address] PCP - Naun Ivey 12/01/24 documented as of this encounter
--- OUTSIDE RECORDS SUMMARY | 2025-05-14 12:08 | XMS_ITS | CCD ---
Author Organization [facility] Care Team Providers Care [employer] Producer Name Role Phone SYEDA, ELENITA W Unavailable Unavailable SYEDA, ELENITA W Unavailable Unavailable SYEDA, ELENITA W Unavailable Unavailable SYEDA, ELENITA W Unavailable Unavailable SYEDA, ELENITA W Unavailable Unavailable SYEDA, ELENITA W Unavailable Unavailable SYEDA, ELENITA W Unavailable Unavailable WEST, DR RASHID Bledsoe Consulting Unavailable NADERER, DR JARON Day Primary Care Unavailable NADERER, DR JARON Day Admitting Unavailable NADERER, DR JARON Day Attending Unavailable NADERER, DR JARON Day Consulting Unavailable NADERER, DR JARON Day Consulting Unavailable NADERER, DR JARON Day Primary Care Unavailable NADERER, DR JARON Day Admitting Unavailable NADERER, DR JARON Day Attending Unavailable NADERER, DR JARON Day Consulting Unavailable NADERER, DR JARON Day Primary Care Unavailable NADERER, DR JARON Day Admitting Unavailable NADERER, DR JARON Day Attending Unavailable WEST, DR RASHID Bledsoe Consulting Unavailable NADERER, DR JARON Day Primary Care Unavailable NADERER, DR JARON Day Admitting Unavailable NADERER, DR JARON Day Attending Unavailable NADERER, DR JARON Day Consulting Unavailable NADERER, DR JARON Day Attending Unavailable NADERER, DR JARON Day Consulting Unavailable NADERER, DR JARON Day Primary Care Unavailable NADERER, DR JARON Day Admitting Unavailable NadJaron lee MD Primary Care Provider Jaron Mckeon MD Unavailable JARON MCKEON Referring Unavailable MIKE, JARON Primary Care Unavailable MIKE, JARON Referring Unavailable NADHIREN, JARON Primary Care Unavailable Jaron Mckeon MD Unavailable MIKE, JARON Attending Unavailable NADERER, JARON Attending Unavailable NADERER, JARON Attending Unavailable NADERER, JARON Attending Unavailable NADERER, JARON Attending Unavailable Allergies Allergy Classification Reported Allergen(s) Allergy Type Date of Onset Reaction(s) Facility (20 sources) Penicillins; Translations: [PENICILLINS] Propensity to adverse reactions to drug (disorder) 7 Fever, Hives, Rash, Shortness of breath, Unknown [facility] Other [place] [facility] (1 source) Penicillin Drug Allergy [facility] Medications Current Medications Medication Drug Class(es) Dates Sig (Normalized) Sig (Original) ALPRAZolam 1 mg oral tablet (16 sources) Benzodiazepine Start: 04-13-2024 take 1 tablet by mouth three times daily as needed for anxiety ALPRAZolam (Xanax) 1 MG tablet Indications: Generalized anxiety disorder Take 1 tablet (1 mg) by mouth 3 (three) times a day as needed for anxiety 90 tablet 04/13/2024 Active ARIPiprazole 15 mg oral tablet (10 sources) Atypical Antipsychotic Start: 02-15-2025 take 1 tablet by mouth once daily ARIPiprazole (Abilify) 15 MG tablet Indications: Major depressive disorder, recurrent, moderate (HCC) Take 1 tablet (15 mg) by mouth Daily 30 tablet 2 02/15/2025 Active Start: 11-16-2024 End: 02-15-2025 take 1 tablet by mouth once daily ARIPiprazole (Abilify) 10 MG tablet Indications: Major depressive disorder, recurrent, moderate (HCC) Take 1 tablet (10 mg) by mouth Daily 30 tablet 3 11/16/2024 02/15/2025 Discontinued Start: 10-14-2024 take 1 tablet by elina th once daily ARIPiprazole (Abilify) 5 MG tablet Indications: Major depressive disorder, recurrent, moderate (CMS/HCC) Take 1 tablet (5 mg) by mouth Daily 30 tablet 2 10/14/2024 Active atorvastatin 40 mg oral tablet (16 sources) HMG-CoA Reductase Inhibitor Start: 12-17-2024 take 1 tablet by mouth at bedtime atorvastatin (Lipitor) 40 MG tablet Indications: Dyslipidemia Take 1 tablet (40 mg) by mouth at bedtime 90 tablet 3 12/17/2024 Active Start: 03-12-2024 atorvastatin ( Lipitor) 40 MG tablet Indications: Dyslipidemia (CMS/HCC) TAKE 1 TABLET AT BEDTIME 90 tablet 3 03/12/2024 Active empagliflozin 25 mg oral tablet (6 sources) Sodium-Glucose Cotransporter 2 Inhibitor Start: 07-15-2024 take 1 tablet by mouth once daily empagliflozin (Jardiance) 25 MG Indications: Type 2 diabetes mellitus with hyperglycemia, without long-term current use of insulin ([facility]) Take 1 tablet (25 mg) by mouth Daily 30 tablet 5 07/15/2024 Active glipiZIDE 10 mg oral tablet (18 sources) Sulfonylurea Start: 04-13-2024 End: 02-15-2025 take 2 tablets by mouth in the morning glipiZIDE (Glucotrol) 10 MG tablet Indications: Type 2 diabetes mellitus with hyperglycemia, without long-term current use of insulin ([facility]) Take 2 tablets (20 mg) by mouth in the morning and 2 tablets (20 mg) in the evening. Take before meals. 360 tablet 3 02/15/2025 Active losartan potassium 25 mg oral tablet (18 sources) Angiotensin 2 Receptor [place] Start: 02-12-2024 End: 10-14-2024 take 1 tablet by mouth once daily losartan (Cozaar) 25 MG tablet Indications: Essential hypertension, benign Take 1 tablet (25 mg) by mouth Daily 90 tablet 3 10/14/2024 Active metoprolol tartrate 100 mg oral tablet (18 sources) beta-Adrenergic [place] Start: 12-04-2023 End: 10-14-2025 take 1 tablet by mouth in the morning metoprolol tartrate (Lopressor) 100 MG tablet Indications: Essential hypertension, benign Take 1 tablet (100 mg) by mouth in the morning and 1 tablet (100 mg) before bedtime. 180 tablet 3 10/14/2024 10/14/2025 Active 0.25 mg, 0.5 mg dose 1.5 ml semaglutide 1.34 mg/ml pen injector (2 sources) Start: 11-16-2024 semaglutide (Ozempic, 0.25 or 0.5 MG/DOSE,) 2 MG/1.5ML solution pen-injector Indications: Type 2 diabetes mellitus with hyperglycemia, without long-term current use of insulin ([facility]) 0.25 mg SC weekly x 4 weeks, then 0.5 mg weekly 1 each 3 11/16/2024 Active Semaglutide, 2 MG/DOSE, (Ozempic, 2 MG/DOSE,) 8 MG/3ML solution pen-injector (4 sources) Start: 02-15-2025 inject 2 mg by subcutaneous injection every week Semaglutide, 2 MG/DOSE, (Ozempic, 2 MG/DOSE,) 8 MG/3ML solution pen-injector Indications: Type 2 diabetes mellitus with hyperglycemia, without long-term current use of insulin (HCC) Inject 2 mg under the skin 1 (one) time per week 9 mL 3 02/15/2025 Active Start: 02-15-2025 End: 02-15-2025 inject 2 mg by subcutaneous injection every week Semaglutide, 2 MG/DOSE, (Ozempic, 2 MG/DOSE,) 8 MG/3ML solution pen-injector Indications: Type 2 diabetes mellitus with hyperglycemia, without long-term current use of insulin (HCC) Inject 2 mg under the skin 1 (one) time per week 3 mL 3 02/15/2025 02/15/2025 Discontinued SITagliptin 100 mg oral tablet (11 sources) Dipeptidyl Peptidase 4 Inhibitor Start: 02-12-2024 take 1 tablet by mouth once daily SITagliptin (Januvia) 100 MG tablet Indications: Type 2 diabetes mellitus with hyperglycemia, without long-term current use of insulin (CMS/HCC) Take 1 tablet (100 mg) by mouth Daily 90 tablet 3 02/12/2024 Active tiZANidine 4 mg oral tablet (18 sources) Central alpha-2 Adrenergic Agonist Start: 12-04-2023 End: 10-14-2024 take 1 tablet by mouth three times daily as needed for muscle spasms tiZANidine (Zanaflex) 4 MG tablet Indications: Fibromyalgia Take 1 tablet (4 mg) by mouth 3 (three) times a day as needed for muscle spasms 270 tablet 3 10/14/2024 Active traMADol hydrochloride 50 mg oral tablet (8 sources) Opioid Agonist Start: 07-17-2023 End: 09-19-2024 take 1 tablet by mouth four times daily as needed for pain traMADol (Ultram) 50 MG tablet Indications: Primary osteoarthritis of right knee Take 1 tablet (50 mg) by mouth 4 (four) times a day as needed for moderate pain or severe pain 120 tablet 08/20/2024 09/19/2024 Active traZODone hydrochloride 150 mg oral tablet (13 sources) Serotonin Reuptake Inhibitor Start: 12-09-2024 End: 12-09-2025 take 1 tablet by mouth at bedtime traZODone (Desyrel) 150 MG tablet Indications: Primary insomnia Take 1 tablet (150 mg) by mouth at bedtime 90 tablet 3 12/09/2024 12/09/2025 Active Start: 10-14-2024 take 1 tablet by elina th at bedtime traZODone (Desyrel) 150 MG tablet Indications: Primary insomnia Take 1 tablet (150 mg) by mouth at bedtime 10/14/2024 Active Start: 06-25-2024 End: 07-14-2024 take 1 tablet by mouth at bedtime traZODone (Desyrel) 150 MG tablet Indications: Primary insomnia Take 1 tablet (150 mg) by mouth at bedtime 90 tablet 3 06/25/2024 07/14/2024 Discontinued Start: 05-30-2023 End: 06-23-2024 take 1 tablet by mouth at bedtime traZODone (Desyrel) 150 MG tablet Indications: Primary insomnia Take 1 tablet (150 mg) by mouth at bedtime 90 tablet 3 06/23/2024 Active 24 hr venlafaxine 75 mg extended release oral capsule (16 sources) Serotonin and Norepinephrine Reuptake Inhibitor Start: 08-24-2024 take 1 capsule by mouth twice daily venlafaxine XR (Effexor XR) 75 MG 24 hr capsule Indications: Major depressive disorder, recurrent episode, mild , Major depressive disorder, recurrent, mild TAKE 1 CAPSULE BY MOUTH TWICE A DAY 60 capsule 11 08/24/2024 Active take 1 capsule by mo uth every twenty-four hours in the morning venlafaxine XR (Effexor XR) 75 MG 24 hr capsule Take 75 mg by mouth in the morning and 75 mg before bedtime. Active Completed/Discontinued Medications Medication Drug Class(es) Dates Sig (Normalized) Sig (Original) fluconazole 150 mg oral tablet (4 sources) Azole Antifungal Start: 08-03-2024 End: 10-14-2024 fluconazole (Diflucan) 150 MG tablet Indications: Vaginal karuna One time dose. May repeat in 72 hours PRN 2 tablet 1 08/03/2024 10/14/2024 Discontinued lamoTRIgine 100 mg oral tablet (4 sources) Mood Stabilizer, Anti-epileptic Agent Start: 02-12-2024 End: 07-14-2024 take 1 tablet by mouth at bedtime lamoTRIgine (LaMICtal) 100 MG tablet Indications: Major depressive disorder, recurrent, moderate (CMS/HCC) Take 1 tablet (100 mg) by mouth at bedtime 90 tablet 3 02/12/2024 07/14/2024 Discontinued meloxicam 15 mg oral tablet (4 sources) Nonsteroidal Anti-inflammatory Drug Start: 04-13-2024 End: 07-14-2024 take 1 tablet by mouth once daily at mealtime meloxicam (Mobic) 15 MG tablet Indications: Bilateral primary osteoarthritis of knee Take 1 tablet (15 mg) by mouth Daily Take with food 90 tablet 3 04/13/2024 07/14/2024 Discontinued semaglutide (Ozempic, 1 MG/DOSE,) 4 MG/3ML solution pen-injector (3 sources) Start: 12-24-2024 End: 02-15-2025 inject 1 mg by subcutaneous injection every week semaglutide (Ozempic, 1 MG/DOSE,) 4 MG/3ML solution pen-injector Indications: Type 2 diabetes mellitus with hyperglycemia, without long-term current use of insulin (HCC) Inject 1 mg under the skin 1 (one) time per week 1 each 5 12/24/2024 02/15/2025 Discontinued Start: 12-24-2024 inject 1 mg by subcu taneous injection every week semaglutide (Ozempic, 1 MG/DOSE,) 4 MG/3ML solution pen-injector Indications: Type 2 diabetes mellitus with hyperglycemia, without long-term current use of insulin (HCC) Inject 1 mg under the skin 1 (one) time per week 1 each 5 12/24/2024 Active zolpidem tartrate 5 mg oral tablet (9 sources) gamma-Aminobutyric Acid-ergic Agonist Start: 07-14-2024 End: 11-18-2024 zolpidem (Ambien) 5 MG tablet Indications: Primary insomnia Take 1 tablet (5 mg) by mouth as needed at bedtime for sleep 90 tablet 08/20/2024 10/14/2024 Discontinued Problems Active Problems Problem Classification Problem Date Documented Da te Episodic/Chronic Anxiety disorders (20 sources) Generalized anxiety disorder; Translations: [Generalized anxiety disorder] Onset: 01-15-2024 01-15-2024 Chronic Diabetes mellitus with complications (20 sources) Type 2 diabetes mellitus with hyperglycemia; Translations: [Hyperglycemia due to type 2 diabetes mellitus] Onset: 07-18-2022 Chronic Disorders of lipid metabolism (16 sources) Dyslipidemia; Translations: [Hyperlipidemia, unspecified] Onset: 01-15-2024 01-15-2024 Chronic Essential hypertension (20 sources) Benign essential hypertension; Translations: [Essential (primary) hypertension] Onset: 01-15-2024 01-15-2024 Chronic Miscellaneous mental health disorders (20 sources) Primary insomnia; Translations: [Primary insomnia] Onset: 01-15-2024 06-23-2024 Chronic Mood disorders (20 sources) Moderate recurrent major depression; Translations: [Major depressive disorder, recurrent, moderate] Onset: 09-04-2023 Resolved: 01-15-2024 01-15-2024 Chronic Osteoarthritis (20 sources) Arthritis; Translations: [Unspecified osteoarthritis, unspecified site] Onset: 01-15-2024 01-15-2024 Chronic Other gastrointestinal disorders (16 sources) Irritable bowel syndrome; Translations: [Mixed irritable bowel syndrome] Onset: 01-15-2024 01-15-2024 Chronic Other nervous system disorders (16 sources) Complex regional pain syndrome type I of left lower limb; Translations: [Complex regional pain syndrome I of left lower limb] Onset: 01-15-2024 01-15-2024 Chronic Other screening for suspected conditions (not mental disorders or infectious disease) (10 sources) Encounter for screening mammogram for malignant neoplasm of breast; Translations: [Mammography abnormal] Onset: 08-07-2022 Episodic Residual codes; unclassified (1 source) Pain, unspecified; Translations: [Pain, unspecified] Onset: 12-18-2024 Episodic Past or Other Problems Problem Classification Problem Date Documented Date Episodic/Chronic Gastritis and duodenitis (16 sources) Acute superficial gastritis; Translations: [Acute gastritis without bleeding] Onset: 01-15-2024 01-15-2024 Episodic Other acquired deformities (16 sources) Disorder of ankle joint; Translations: [Other specified acquired deformities of musculoskeletal system] Onset: 01-15-2024 01-15-2024 Episodic Other connective tissue disease (1 source) Peroneal tendinitis, left leg; Translations: [Peroneal tendinitis, left leg] Onset: 09-01-2017 Episodic Other connective tissue disease (4 sources) Pain in left foot; Translations: [PAIN IN LEFT FOOT] Onset: 01-18-2022 Episodic Other connective tissue disease (20 sources) Fibromyalgia; Translations: [Fibromyalgia] Onset: 01-15-2024 01-15-2024 Episodic Other diseases of veins and lymphatics (16 sources) Venous stasis; Translations: [Other specified disorders of veins] Onset: 01-15-2024 01-15-2024 Episodic Residual codes; unclassified (1 source) Family history of malignant neoplasm of digestive organs; Translations: [FAM HX MALIG NEOPLASM DIGESTIV ORGN] Onset: 08-11-2022 Episodic Residual codes; unclassified (1 source) Family history of malignant neoplasm of other organs or systems; Translations: [FAM HX MALIG NEOPLASM OTH ORGN/SYS] Onset: 08-11-2022 Episodic Results Test Name Value Interpretation Reference Range Facility MAMM DIAGNOSTIC UNILAT LT W CADon 01-12-2025 MAMM DIAGNOSTIC UNILAT LT W CAD MAMM DIAGNOSTIC UNILAT LT W CAD MARYBETH VALDEZ 1960 [id number] EXAM: MAMM DIAGNOSTIC UNILAT LT W CAD, [...] 12:53 PM 1 c MAMM 1 YR Normal [facility] MM TOMOSYNTHESIS SCREENING B Ion 12-03-2024 [place] [address] Mammography Report Signed Patient: MARYBETH VALDEZ MR#: [id number] : 1960 Acct:[id number] Age/Sex: 64 / F ADM Date: 12/03/24 Loc: MAMMO Attending Dr: Jaron Mckeon M.D. Ordering Physician: Jaron Mckeon M.D. Results: Date of Service: 12/03/24 Follow Up: Procedure(s): MM tomosynthesis screening BI Accession Number(s): [id number] cc: Jaron Mckeon M.D. Patient Name: MARYBETH VALDEZ MR#: [id number] : 1960 Exam Date: 12/03/2024 Ordering Doctor: DR Jaron Mckeon . RADIOLOGY REPORT PROCEDURE: MM TOMOSYNTHESIS SCREENING BI COMPARISON: MM DIAGNOSTIC MAMMO UNILAT LT, 10/16/2023. MM TOMOSYNTHESIS SCREENING BI, 09/06/2023. MG MAMM SCREEN 3D SUDARSHAN CAD, 08/07/2022. MG MAMM SCREEN 3D SUDARSHAN CAD, 05/29/2021. INDICATIONS: Screening Calculator Name NCI Breast Cancer Risk Assessment Tool 5 Year Breast Cancer Risk 1.10% Lifetime Breast Cancer Risk 4.90% Personal Breast Cancer No Personal Ovarian Cancer No Treatments None Family Cancers Mother with uterine cancer at age 37; Grandmother-maternal with colon cancer at age 84. LOCATION: The [facility] BREAST COMPOSITION: The breasts are heterogeneously dense,which may obscure small masses. FINDINGS: DIAGNOSTIC CATEGORY 0--INCOMPLETE: NEED ADDITIONAL IMAGING EVALUATION. RIGHT BREAST: No significant suspicious finding. LEFT BREAST: Asymmetry superior aspect of the left breast, posterior depth on MLO view only. RECOMMENDATIONS: ADDITIONAL MAMMOGRAPHIC VIEWS REQUIRED: LEFT BREAST - spot-compression/true lateral views, possible ultrasound recommended. PLEASE NOTE: A NORMAL MAMMOGRAM DOES NOT EXCLUDE THE POSSIBILITY OF BREAST CANCER. A CLINICALLY SUSPICIOUS PALPABLE LUMP SHOULD BE BIOPSIED. Dictated by: Chriss العراقي DO on 12/03/2024 at 16:33 Approved by: Chriss العراقي DO on 12/03/2024 at 16:37 Dictated By: Chriss العراقي M.D. Signed By: 12/03/24 1638 DD/ 1637 TD/TT: Materials Planner: [facility] Radiology, Radiologi MD marysol - 12/03/2024 [place] [address] Mammography Report Signed Patient: MARYBETH VALDEZ MR#: [id number] : 1960 Acct:[id number] Age/Sex: 64 / F ADM Date: 12/03/24 Loc: MAMMO Attending Dr: Jaron Mckeon M.D. Ordering Physician: Jaron Mckeon M.D. Results: Date of Service: 12/03/24 Follow Up: Procedure(s): MM tomosynthesis screening BI Accession Number(s): [id number] cc: Jaron Mckeon M.D. Patient Name: MARYBETH VALDEZ MR#: [id number] : 1960 Exam Date: 12/03/2024 Ordering Doctor: DR Jaron Mckeon . RADIOLOGY REPORT PROCEDURE: MM TOMOSYNTHESIS SCREENING BI COMPARISON: MM DIAGNOSTIC MAMMO UNILAT LT, 10/16/2023. MM TOMOSYNTHESIS SCREENING BI, 09/06/2023. MG MAMM SCREEN 3D SUDARSHAN CAD, 08/07/2022. MG MAMM SCREEN 3D SUDARSHAN CAD, 05/29/2021. INDICATIONS: Screening Calculator Name NCI Breast Cancer Risk Assessment Tool 5 Year Breast Cancer Risk 1.10% Lifetime Breast Cancer Risk 4.90% Personal Breast Cancer No Personal Ovarian Cancer No Treatments None Family Cancers Mother with uterine cancer at age 37; Grandmother-maternal with colon cancer at age 84. LOCATION: The [facility] BREAST COMPOSITION: The breasts are heterogeneously dense,which may obscure small masses. FINDINGS: DIAGNOSTIC CATEGORY 0--INCOMPLETE: NEED ADDITIONAL IMAGING EVALUATION. RIGHT BREAST: No significant suspicious finding. LEFT BREAST: Asymmetry superior aspect of the left breast, posterior depth on MLO view only. RECOMMENDATIONS: ADDITIONAL MAMMOGRAPHIC VIEWS REQUIRED: LEFT BREAST - spot-compression/true lateral views, possible ultrasound recommended. PLEASE NOTE: A NORMAL MAMMOGRAM DOES NOT EXCLUDE THE POSSIBILITY OF BREAST CANCER. A CLINICALLY SUSPICIOUS PALPABLE LUMP SHOULD BE BIOPSIED. Dictated by: Chriss العراقي DO on 12/03/2024 at 16:33 Approved by: Chriss العراقي DO on 12/03/2024 at 16:37 Dictated By: Chriss العراقي M.D. Signed By: 12/03/241637 DD/ 36 TD/TT: Materials Planner: [facility] Radiology Study observation (narrative) [facility] MM TOMOSYNTHESIS SCREENING B IOrdered By: Radiologist Radiology on 12-03-2024 [facility] Work Phone: MLR HEMOGLOBIN A1Con 025 Glucose [Mass/Vol] 249 mg/dL [facility] HbA1c (Bld) [Mass fraction] 10.3 % High 4.5 - 6.2 % [facility] Comment on above: ADA RECOMMENDED LIMI T 4.0 - 6.0 ADA THERAPEUTIC TARGET < 7.0 ACTION SUGGESTED > 7.0 Interpretation and review of laboratory results Abnormal [facility] MLR HEMOGLOBIN A1Con 024 Glucose [Mass/Vol] 240 mg/dL [facility] HbA1c (Bld) [Mass fraction] 10 % High 4.5 - 6.2 % [facility] Comment on above: ADA RECOMMENDED LIMI T 4.0 - 6.0 ADA THERAPEUTIC TARGET < 7.0 ACTION SUGGESTED > 7.0 Interpretation and review of laboratory results Abnormal [facility] CBC AUTO DIFFon 01-15-2023 BASO # 0.0 103/ul Normal 0.0-0.1 [facility] Comment on above: Performed By: #### C BC #### [facility] [address] [place] [address] Dr. Angelo Ballesteros Basophils/100 WBC (Bld) 0.1 % Critically low 0.2-2.0 [facility] Comment on above: Performed By: #### C BC #### [facility] [address] [place] [address] Dr. Angelo Ballesteros EO # 0.0 103/ul Normal 0.0-0.7 [facility] Comment on above: Performed By: #### C BC #### [facility] [address] [place] [address] Dr. Angelo Ballesteros Eosinophils/100 WBC (Bld) 0.0 % Critically low 0.9-7.0 [facility] Comment on above: Performed By: #### C BC #### [facility] [address] [place] [address] Dr. Angelo Ballesteros Erythrocyte distribution width (RBC) [Ratio] 13.3 % Normal 11.0-15.0 [facility] Comment on above: Performed By: #### C BC #### [facility] [address] [place] [address] Dr. Angelo Ballesteros Hematocrit (Bld) [Volume fraction] 44.3 % Normal 36.0-48.0 [facility] Comment on above: Performed By: #### C BC #### [facility] [address] [place] [address] Dr. Angelo Ballesteros Hemoglobin (Bld) [Mass/Vol] 14.4 g/dL Normal 12.0-16.0 [facility] Comment on above: Performed By: #### C BC #### [facility] [address] [place] [address] Dr. Angelo Ballesteros IG # 0.02 10e3/ul Normal 0.00-0.03 [facility] Comment on above: Performed By: #### C BC #### [facility] [address] [place] [address] Dr. Angelo Ballesteros IG % 0.3 % Normal 0.0-0.5 [facility] Comment on above: Performed By: #### C BC #### [facility] [address] [place] [address] Dr. Angelo Ballesteros LYMPH # 3.3 103/ul Normal 1.2-3.8 [facility] Comment on above: Performed By: #### C BC #### [facility] [address] [place] [address] Dr. Angelo Ballesteros Lymphocytes/100 WBC (Bld) 41.8 % Normal 20.5-60.0 [facility] Comment on above: Performed By: #### C BC #### [facility] [address] [place] [address] Dr. Angelo Ballesteros MANUAL DIFF REQ NO Normal [facility] Comment on above: Performed By: #### C BC #### [facility] [address] [place] [address] Dr. Angelo Ballesteros MCH (RBC) [Entitic mass] 30.1 pg Normal 26.7-34.0 [facility] Comment on above: Performed By: #### C BC #### [facility] [address] [place] [address] Dr. Angelo Ballesteros MCHC (RBC) [Mass/Vol] 32.5 g/dL Normal 29.9-35.2 [facility] Comment on above: Performed By: #### C BC #### [facility] [address] [place] [address] Dr. Angelo Ballesteros MCV (RBC) [Entitic vol] 92.5 fL Normal 81.0-99.0 [facility] Comment on above: Performed By: #### C BC #### [facility] [address] [place] [address] Dr. Angelo Ballesteros MONO # 0.6 103/ul Normal 0.3-0.8 [facility] Comment on above: Performed By: #### C BC #### [facility] [address] [place] [address] Dr. Angelo Ballesteros Monocytes/100 WBC (Bld) 7.1 % Normal 1.7-12.0 [facility] Comment on above: Performed By: #### C BC #### [facility] [address] [place] [address] Dr. Angelo Ballesteros NEUT # 4.1 103/ul Normal 1.4-6.5 [facility] Comment on above: Performed By: #### C BC #### [facility] [address] [place] [address] Dr. Angelo Ballesteros Neutrophils/100 WBC (Bld) 50.7 % Normal 43.0-75.0 [facility] Comment on above: Performed By: #### C BC #### [facility] [address] [place] [address] Dr. Angelo Ballesteros Platelet mean volume (Bld) [Entitic vol] 10.6 fL Normal 9.5-13.5 [facility] Comment on above: Performed By: #### C BC #### [facility] [address] [place] [address] Dr. Angelo Ballesteros PLT 294 103/ul Normal 150-450 [facility] Comment on above: Performed By: #### C BC #### [facility] [address] [place] [address] Dr. Angelo Ballesteros RBC 4.79 106/ul Normal 4.20-5.40 [facility] Comment on above: Performed By: #### C BC #### [facility] [address] [place] [address] Dr. Angelo Ballesteros WBC 8.0 103/ul Normal 4.0-11.0 [facility] Comment on above: Performed By: #### C BC #### [facility] [address] [place] [address] Dr. Angelo Ballesteros GLYCOHEMOGLOBIN A1Con 2022 ADA RECOMMENDATION SEE BELOW Normal [facility] Comment on above: Result Comment: ADA RECOMMENDED LIMIT 4.0 - 6.0 ADA THERAPEUTIC TARGET < 7.0 ACTION SUGGESTED > 7.0 Performed By: #### A 1C #### [facility] [address] [place] [address] Dr. Angelo Ballesteros Glucose [Mass/Vol] 160 mg/dL Normal [facility] Comment on above: Performed By: #### A 1C #### [facility] [address] [place] [address] Dr. Angelo Ballesteros HbA1c (Bld) [Mass fraction] 7.2 % Critically high 4.5-6.2 [facility] Comment on above: Performed By: #### A 1C #### [facility] [address] [place] [address] Dr. Angelo Ballesteros LIPID PROFILEon 01-15-2023 CHOL-HDL RATIO NORM SEE BELOW Normal [facility] Comment on above: Result Comment: 3.3 - 4.4 LOW RISK 4.4 - 7.1 AVERAGE RISK 7.1 - 11.0 MODERATE RISK >11.0 HIGH RISK Performed By: #### T SH, LIVER, BMP, LIPID #### [facility] [address] [place] [address] Dr. Angelo Ballesteros Cholesterol [Mass/Vol] 219 mg/dL Critically high <=200 [facility] Comment on above: Performed By: #### T SH, LIVER, BMP, LIPID #### [facility] [address] [address] [address] Angelo Ballesteros Cholesterol in HDL [Mass/Vol] 41 mg/dL Normal 40-60 [facility] Comment on above: Performed By: #### T SH, LIVER, BMP, LIPID #### [facility] [address] [address] [address] Angelo Ballesteros Cholesterol in LDL [Mass/Vol] 100.6 mg/dL Normal [facility] Comment on above: Performed By: #### T SH, LIVER, BMP, LIPID #### [facility] [address] [address] [address] Angelo Ballesteros Cholesterol.total/ Cholesterol in HDL [Mass ratio] 5.3 {ratio} Normal [facility] Comment on above: Performed By: #### T SH, LIVER, BMP, LIPID #### [facility] [address] [address] [address] Angelo Ballesteros HDL NORMAL > or = 60 mg/dl - LO W CARDIOVASCULAR RISK <40 mg/dl - HIGH CARDIOVASCULAR RISK Normal [facility] Comment on above: Performed By: #### T SH, LIVER, BMP, LIPID #### [facility] [address] [address] [address] Angelo Ballesteros LDL CALC NORMAL SEE BELOW Normal [facility] Comment on above: Result Comment: <100 mg/dl OPTIMAL 100 - 129 mg/dl NEAR OR ABOVE OPTIMAL 130 - 159 mg/dl BORDERLINE HIGH 160 - 189 mg/dl HIGH >190 mg/dl VERY HIGH Performed By: #### T SH, LIVER, BMP, LIPID #### [facility] [address] [address] [address] Angelo Ballesteros Triglyceride [Mass/Vol] 387 mg/dL Critically high <=150 [facility] Comment on above: Performed By: #### T SH, LIVER, BMP, LIPID #### [facility] [address] [address] [address] Angelo Ballesteros VLDL CALC 77.4 mg/dL Normal [facility] Comment on above: Performed By: #### T SH, LIVER, BMP, LIPID #### [facility] [address] [address] [address] Angelo Ballesteros LIVER PROFILEon 01-15-2023 Albumin [Mass/Vol] 3.7 g/dL Normal 3.4-5.0 [facility] Comment on above: Performed By: #### T SH, LIVER, BMP, LIPID #### [facility] [address] [address] [address] Angelo Ballesteros Albumin/Globulin [Mass ratio] 1.1 {ratio} Normal [facility] Comment on above: Performed By: #### T SH, LIVER, BMP, LIPID #### [facility] [address] [address] [address] Angelo Ballesteros ALP [Catalytic activity/Vol] 64 U/L Normal 46-116 [facility] Comment on above: Performed By: #### T SH, LIVER, BMP, LIPID #### [facility] [address] [place] [address] Dr. Angelo Ballesteros ALT [Catalytic activity/Vol] 24 U/L Normal 14-59 [facility] Comment on above: Performed By: #### T SH, LIVER, BMP, LIPID #### [facility] [address] [place] [address] Dr. Angelo Ballesteros AST [Catalytic activity/Vol] 17 U/L Normal 15-37 [facility] Comment on above: Performed By: #### T SH, LIVER, BMP, LIPID #### [facility] [address] [place] [address] Dr. Angelo Ballesteros BILI, CONJUGATED 0.1 mg/dL Normal 0.0-0.2 [facility] Comment on above: Performed By: #### T SH, LIVER, BMP, LIPID #### [facility] [address] [place] [address] Dr. Angelo Ballesteros Bilirubin [Mass/Vol] 0.3 mg/dL Normal 0.2-1.0 [facility] Comment on above: Performed By: #### T SH, LIVER, BMP, LIPID #### [facility] [address] [place] [address] Dr. Angelo Ballesteros Globulin (S) [Mass/Vol] 3.3 g/dL Normal [facility] Comment on above: Performed By: #### T SH, LIVER, BMP, LIPID #### [facility] [address] [address] [address] Angelo Ballesteros Protein [Mass/Vol] 7.0 g/dL Normal 6.4-8.2 [facility] Comment on above: Performed By: #### T SH, LIVER, BMP, LIPID #### [facility] [address] [address] [address] Angelo Ballesteros PROF CHEM 8 (BAS METB)on Anion gap [Moles/Vol] 13.7 mmol/L Normal [facility] Comment on above: Performed By: #### T SH, LIVER, BMP, LIPID #### [facility] [address] [address] [address] Angelo Ballesteros Calcium [Mass/Vol] 8.4 mg/dL Critically low 8.5-10.1 [facility] Comment on above: Performed By: #### T SH, LIVER, BMP, LIPID #### [facility] [address] [address] [address] Angelo Ballesteros Chloride [Moles/Vol] 105 mmol/L Normal 98-107 [facility] Comment on above: Performed By: #### T SH, LIVER, BMP, LIPID #### [facility] [address] [address] [address] Angelo Ballesteros CO2 [Moles/Vol] 27.0 mmol/L Normal 21.0-32.0 [facility] Comment on above: Performed By: #### T SH, LIVER, BMP, LIPID #### [facility] [address] [address] [address] Angelo Ballesteros Creatinine [Mass/Vol] 1.01 mg/dL Normal 0.55-1.02 [facility] Comment on above: Performed By: #### T SH, LIVER, BMP, LIPID #### [facility] [address] [address] [address] Angelo Ballesteros EGFR-AF [place]ER >60 Normal >=60 [facility] Comment on above: Performed By: #### T SH, LIVER, BMP, LIPID #### [facility] [address] [address] [address] Angelo Ballesteros EGFR-NON AF [place] 56 mL/min/1.73m2 Critically low >=60 [facility] Comment on above: Performed By: #### T SH, LIVER, BMP, LIPID #### [facility] [address] [address] [address] Angelo Ballesteros Glucose [Mass/Vol] 109 mg/dL Critically high 74-106 [facility] Comment on above: Performed By: #### T SH, LIVER, BMP, LIPID #### [facility] [address] [address] [address] Angelo Ballesteros Potassium [Moles/Vol] 3.7 mmol/L Normal 3.5-5.1 [facility] Comment on above: Performed By: #### T SH, LIVER, BMP, LIPID #### [facility] [address] [address] [address] Angelo Ballesteros Sodium [Moles/Vol] 142 mmol/L Normal 136-145 [facility] Comment on above: Performed By: #### T SH, LIVER, BMP, LIPID #### [facility] [address] [address] [address] Angelo Ballesteros Urea nitrogen [Mass/Vol] 11.0 mg/dL Normal 7.0-18.0 [facility] Comment on above: Performed By: #### T SH, LIVER, BMP, LIPID #### [facility] [address] [place] [address] Dr. Angelo Ballesteros Urea nitrogen/Creatinin e [Mass ratio] 10.9 mg/mg Normal [facility] Comment on above: Performed By: #### T SH, LIVER, BMP, LIPID #### [facility] [address] [address] [address] Angelo Ballesteros TSHon 01-15-2023 TSH 1.845 uIU/mL Normal 0.358-3.740 [facility] Comment on above: Performed By: #### T SH, LIVER, BMP, LIPID #### [facility] [address] [address] [address] Angelo Ballesteros MG MAMM SCREEN 3D SUDARSHAN CADon 08-07-2022 MG MAMM SCREEN 3D SUDARSHAN CAD Patient: MARYBETH VALDEZ Exam Date: 08/07/2022 : 1960 Gender:F Ordering : DR JARON MCKEON . Admission #: [id number] Family : Order #: [id number] CLICK HERE TO VIEW EXAM RADIOLOGY REPORT [...] cancer at age 85. LOCATION: [facility] BREAST COMPOSITION: Heterogeneously dense,which may obscure [...] Cantrell MD on 08/07/2022 at 15:46 Normal [facility] GLYCOHEMOGLOBIN A1Con 2021 ADA RECOMMENDATION SEE BELOW Normal [facility] Comment on above: Result Comment: ADA RECOMMENDED LIMIT 4.0 - 6.0 ADA THERAPEUTIC TARGET < 7.0 ACTION SUGGESTED > 7.0 Performed By: #### A 1C #### [facility] [address] [address] [address] Angelo Ballesteros Glucose [Mass/Vol] 197 mg/dL Normal [facility] Comment on above: Performed By: #### A 1C #### [facility] [address] [address] [address] Angelo Ballesteros HbA1c (Bld) [Mass fraction] 8.5 % Critically high 4.5-6.2 [facility] Comment on above: Performed By: #### A 1C #### [facility] [address] [address] [address] Angelo Ballesteros GLYCOHEMOGLOBIN A1Con 2021 ADA RECOMMENDATION SEE BELOW Normal [facility] Comment on above: Result Comment: ADA RECOMMENDED LIMIT 4.0 - 6.0 ADA THERAPEUTIC TARGET < 7.0 ACTION SUGGESTED > 7.0 Performed By: #### A 1C #### [facility] [address] [address] [address] Angelo Ballesteros Glucose [Mass/Vol] 194 mg/dL Normal [facility] Comment on above: Performed By: #### A 1C #### [facility] [address] [address] [address] Angelo Ballesteros HbA1c (Bld) [Mass fraction] 8.4 % Critically high 4.5-6.2 [facility] Comment on above: Performed By: #### A 1C #### [facility] [address] [address] [address] Angelo Ballesteros Initial Visit (Pain Medicine [...] PM Vitals Vital Signs Recorded: 01Jul2019 01:29PM Olupdmeppns47.4 F Heart Cxdk396 Yxsnnbwrwfo92 Prlkrwhk338 Cwcpijcwy855 Height5 ft 7 in Vwtxbc045 lb BMI Ifsidlbmdp35.19 BSA Calculated1.93 Pain Scale8 Physical Exam Vital [...] preserved. NEURO: Alert and oriented X 3 NURSE COORDINATOR normal as tested without focal neurological deficit [...] high given the patient clinical presentation, labs, [employer] CREW[employer]BER data, radiology reports, and other tests as [...] visit with any questions or concerns at [phone] M-F 8-4 pm Signatures Electronically signed by : Mari Howe MD; Jul 01 2019 2:20PM EST (Author) Normal [facility] CNOfferLoungeon 06-04-2018 CNOV Office Visit (ORAVON) ----MARYBETH VALDEZ ([id number]) 1960 [facility] Time Provider Iypffivkdy94/3/18 1:00 PM ELENITA CHENG During your visit [...] or problems.This note was partially generated using PakSense voice recognition system, andthere may be some [...] by ELENITA CHENG MD on 06/05/18 [facility] 06-04-2018 Protein mass conc HNO ID: [id number] thor: Elenita ChengSerflorentinoe: (none)Author Type: PhysicianType: Progress NotesFiled: 06/05/2018 5:06 [...] knows to call us or present to [facility] Emergency Department if the patients pain increases.Patient knows how to reach us if there are any questions or problems.This note was partially generated using Pak[employer] voice recognition system,and there may be some incorrect words, spellings, and punctuation thatwere not noted in checking the note before saving.Elenita Cheng M.D. [facility] CNOVon 04-30-2018 CNOV Office Visit (ORAVON) ----MARYBETH VALDEZ ([id number]) 1960 FDate Time Provider Department04/30/18 1:15 PM ELENITA CHENG During your visit today, we recorded the following information about you:Elenita Cheng MD 05/01/2018 6:15 AM SignedChrisradha Courtney returns today to follow up for [...] or problems.This note was partially generated using PakS[employer] voice recognition system, andthere may be some [...] by ELENITA CHENG MD on 05/01/18 Normal [facility] PROGRESSon 04-30-2018 Protein mass conc HNO ID: [id number] thor: Elenita ChengService: (none)Author Type: PhysicianType: Progress [...] [facility] the [facility].Patient knows how to reach us if there are any questions or problems.This note was partially generated using Pak[employer] voice recognition system,and there may be some incorrect words, spellings, and punctuation thatwere not noted in checking the note before saving.Elenita Cheng M.D. Normal [facility] CNOVon 09-11-2017 CNOV Office Visit (ORAVON) ----MARYBETH VALDEZ ([id number]) 1960 FDate Time Provider Department09/11/17 1:15 PM ELENITA CHENG During your visit today, we recorded the following information about you:Elenita Cheng MD 09/11/2017 2:25 PM SignedChdarnell Valdez returns today to follow up/discuss results [...] there are any questions or problems.Liam Betancourt, FephilippeHelen DeVos Children's HospitalACHING PHYSICIAN STATEMENT:I personally saw and evaluated the [...] by ELENITA CHENG MD on 09/11/17 Normal [facility] PROGRESSon 09-11-2017 Protein mass conc HNO ID: [id number] thor: Elenita ChengService: (none)Author Type: PhysicianType: Progress NotesFiled: 09/11/2017 2:25 PMNote Text:Marybeth Valdez returns today to follow up/discuss results of left footMRI which was completed on 09/01. She is still concerned about the amountof stiffness she still has. She states she has pain is about the /10.Do you have a metal allergy?: NoCurrent Dx: [...] knows to call us or present to [facility] Emergency Department if the patients pain increases.Patient knows how to reach us if there are any questions or problems.Liam Betancourt, DOFellowTEACHING PHYSICIAN STATEMENT:I personally saw and evaluated the patient today. I personally obtainedthe landaverde and critical portions of the history and physical exam. I reviewedthe resident's/fellow's documentation and discussed the patient with theresident/fellow. I agree with the resident's/fellow's medicaldecision-making as documented.Gayla Scruggs M.D. [facility] 09-01-2017 ALLIED HEALTH HNO ID: [id number] thor: Dariusz Colón (Tech): RadiologyAuthor Type: TechnicianType: Allied HealthFiled: 09/01/2017 11:42 AMNote Text: Radiology Service Progress NotePATIENT NAME: Marybeth Byers: [id number] OF SERVICE: September 01, 2017TIME: 11:30 AMPATIENT IDENTITY VERIFICATION COMPLETED USING TWO (2) METHODS: Patientconfirmed name verbally and Date of .PATIENT GENDER DATA: Female. status: : NoBreastfeeding status: NO.PATIENT RELEVANT IMPLANT DATA REVIEWED: YesRADIOLOGY DEPARTMENT: MR; Exam(s) Completed: Lower MSK: Ankle/Hind Foot,leftPERIPHERAL IV DATA: Not applicableSIGNED BY: Serena Colón 2016 11:30 AM [facility] MRI FOOT/TOES WO IVCON LTon 09-01-2017 MRI FOOT/TOES WO IVCON LT * * *Final Report* * *DATE OF EXAM: Sep 01 2017 11:43AM [facility] 0194 - MRI FOOT/TOES WO [...] mm osteochondral lesion medial aspect talar dome, unchanged.Materials Planner: NIKITA Transcribe Date/Time: Sep 01 2017 12:12PDictated by : KELSIE VERNON MDThis examination was interpreted and the report reviewed and electronically signed by: KELSIE VERNON MD on Sep 01 2017 12:29PM [id number] [facility] 08-21-2017 [facility] Office Visit (ORAVON) ----MARYBETH VALDEZ ([id number]) 1960 FDa Time Provider Oavuybzwum77/20/17 1:15 PM ELENITA CHENG During your visit [...] [facility]. She states she did not do a lot of over walking.The airport in [place] was [place]. She avoid the sand and avoided uneven ground.She did have to walk a lot in [place]. Once she arrived in [facility], her footswelled up. She was not [...] Visit Diagnosis:Peroneal tendinitis, left [M76.72]Order(s):[id number] Order #: [id number] FUTUREPrescriptions as of 08/21/2017 Sig: ETODOLAC ER [...] by ELENITA CHENG MD on 08/21/17 Normal [facility] PROGRESSon 08-21-2017 Protein mass conc HNO ID: [id number] thor: Elenita Dickens: (none)Author Type: PhysicianType: Progress NotesFiled: 08/21/2017 2:16 [...] had did well up until staying in [facility] 08/05 through 08/15. Shestates she did not do a lot of over walking. [facility] [place] [facility] She avoid the sand and avoided uneven ground. [place]. Once she arrived in [facility], her foot swelled up. She wasnot [...] stretching, shoe or modifications without resolution. Therefore, [facility] an MRIHPI explored in detail with patient and edited as necessary.At the conclusion of the visit the patient voiced understanding andagreement with the plan. The patient knows to call us or [facility] if the patients pain increases.Patient knows how to reach us if there are any questions or problems.Elenita Cheng M.D. Normal [facility] Vital Signs Date Time Vital Sign Value Performing Clinician Korin bull 02-15-2025 14:23040 Body height 170.2 cm Jaron Mckeon MD Work Phone: [facility] 02-15-2025 14:23-0400 Body mass index (BMI) [Ratio] 29.76 kg/m2 Jaron Mckeon MD Work Phone: [facility] 02-15-2025 14:23-040 Body temperature 96.21 [degF] Jaron Mckeon MD Work Phone: [facility] 02-15-2025 14:23-0400 Body weight 86.18 kg Jaron Mckeon MD Work Phone: [facility] 02-15-2025 14:23-0400 Diastolic blood pressure 76 mm[Hg] Jaron Mckeon MD Work Phone: [facility] 02-15-2025 14:23-0400 Heart rate 100 /min Jaron Mckeon MD Work Phone: [facility] 02-15-2025 14:23-0400 Respiratory rate 20 /min Jaron Mckeon MD Work Phone: [facility] 02-15-2025 14:23-0400 SaO2% (BldA) [Mass fraction] 97 % Jaron Mckeon MD Work Phone: [facility] 02-15-2025 14:23-0400 Systolic blood pressure 144 mm[Hg] Jaron Mckeon MD Work Phone: [facility] 10-14-2024 13:34-0500 Body height 170.2 cm Jaron Mckeon MD Work Phone: [facility] 10-14-2024 13:34-0500 Body mass index (BMI) [Ratio] 30.54 kg/m2 Jaron Mckeon MD Work Phone: [facility] 10-14-2024 13:34-0500 Body temperature 95.31 [degF] Jaron Mckeon MD Work Phone: [facility] 10-14-2024 13:34-0500 Body weight 88.45 kg Jaron Mckeon MD Work Phone: [facility] 10-14-2024 13:34-0500 Diastolic blood pressure 86 mm[Hg] Jaron Mckeon MD Work Phone: [facility] 10-14-2024 13:34-0500 Heart rate 79 /min Jaron Mckeon MD Work Phone: [facility] 10-14-2024 13:34-0500 Respiratory rate 22 /min Jaron Mckeon MD Work Phone: [facility] 10-14-2024 13:34-0500 SaO2% (BldA) [Mass fraction] 98 % Jaron Mckeon MD Work Phone: [facility] 10-14-2024 13:34-0500 Systolic blood pressure 124 mm[Hg] Jaron Mckeon MD Work Phone: [facility] 07-14-2024 14:02-0500 Body height 170.2 cm Jaron Mckeon MD Work Phone: [facility] 07-14-2024 14:02-0500 Body mass index (BMI) [Ratio] 30.38 kg/m2 Jaron Mckeon MD Work Phone: [facility] 07-14-2024 14:02-0500 Body temperature 96.6 [degF] Jaron Mckeon MD Work Phone: [facility] 07-14-2024 14:02-0500 Body weight 88 kg Jaron Mckeon MD Work Phone: [facility] 07-14-2024 14:02-0500 Diastolic blood pressure 78 mm[Hg] Jaron Mckeon MD Work Phone: [facility] 07-14-2024 14:02-0500 Heart rate 81 /min Jaron Mckeon MD Work Phone: [facility] 07-14-2024 14:02-0500 Respiratory rate 22 /min Jaron Mckeon MD Work Phone: [facility] 07-14-2024 14:02-0500 SaO2% (BldA) [Mass fraction] 96 % Jaron Mckeon MD Work Phone: [facility] 07-14-2024 14:02-0500 Systolic blood pressure 126 mm[Hg] Jaron Mckeon MD Work Phone: [facility] Healthcare Encounters Encounter Date Encounter Type Care Provider Facility Start: 02-15-2025 End: 02-15-2025 Bamboo flowsheet Jaron Mckeon MD Work Phone: [facility] Start: 02-15-2025 End: 02-15-2025 Bamboo flowsheet Jaron Mckeon MD Work Phone: [facility] Start: 02-15-2025 End: 02-15-2025 Office outpatient visit 25 minutes Jaron Mckeon MD Work Phone: [facility] Comment on above: Type 2 diabetes mayra itus with hyperglycemia, without long-term current use of insulin (HCC) (Primary Dx); Essential hypertension, benign ; Major depressive disorder, recurrent, moderate (HCC); Generalized anxiety disorder Start: 02-15-2025 End: 02-15-2025 ambulatory JARON MCKEON Not Available Start: 01-12-2025 End: 01-12-2025 ambulatory JARON MCKEON [facility] Start: 12-18-2024 [facility] Start: 12-03-2024 End: 12-03-2024 Clinisync Result Encounter Jaron Mckeon MD Work Phone: [facility] External Department Unsolicited Start: 12-03-2024 End: 12-03-2024 Clinisync Result Encounter Jaron Mckeon MD Work Phone: [facility] External Department Unsolicited Start: 12-03-2024 End: 12-03-2024 Orders Only Jaron Mckeon MD Work Phone: [facility] Comment on above: Abnormal mammogram o f left breast (Primary Dx) Start: 11-16-2024 End: 11-16-2024 ambulatory JARON MCKEON Not Available Start: 11-09-2024 End: 11-09-2024 Clinisync Result Encounter Jaron Mckeon MD Work Phone: [facility] External Department Unsolicited Start: 11-09-2024 End: 11-09-2024 Clinisync Result Encounter Jaron Mckeon MD Work Phone: [facility] External Department Unsolicited Start: 10-14-2024 End: 10-14-2024 Bamboo flowsheet Jaron Mckeon MD Work Phone: [facility] Start: 10-14-2024 End: 10-14-2024 Bamboo flowsheet Jaron Mckeon MD Work Phone: [facility] Start: 10-14-2024 End: 10-14-2024 Office outpatient visit 25 minutes Jaron Mckeon MD Work Phone: [facility] Comment on above: Type 2 diabetes mayra itus with hyperglycemia, without long-term current use of insulin (CMS/HCC) (Primary Dx); Essential hypertension, benign (CMS/HCC); Major depressive disorder, recurrent, moderate (CMS/HCC); Generalized anxiety disorder (CMS/HCC); Primary insomnia; Fibromyalgia Start: 10-14-2024 End: 10-14-2024 ambulatory JARON MCKEON Not Available Start: 08-20-2024 End: 08-20-2024 Refill Jaron Mckeon MD Work Phone: [facility] Comment on above: Primary osteoarthrit is of right knee (Primary Dx); Primary insomnia Start: 07-15-2024 End: 07-15-2024 Orders Only Jaron Mckeon MD Work Phone: [facility] Comment on above: Type 2 diabetes mayra itus with hyperglycemia, without long-term current use of insulin (CMS/HCC) (Primary Dx) Start: 07-14-2024 End: 07-14-2024 Bamboo flowsheet Jaron Mckeon MD Work Phone: [facility] Start: 07-14-2024 End: 07-14-2024 Bamboo flowsheet Jaron Mckeon MD Work Phone: [facility] Start: 07-14-2024 End: 07-14-2024 Clinisync Result Encounter Jaron Mckeon MD Work Phone: [facility] External Department Unsolicited Start: 07-14-2024 End: 07-14-2024 Office outpatient visit 25 minutes Jaron Mckeon MD Work Phone: [facility] Comment on above: Type 2 diabetes mayra itus with hyperglycemia, without long-term current use of insulin (CMS/HCC) (Primary Dx); Essential hypertension, benign (CMS/HCC); Major depressive disorder, recurrent, moderate (CMS/HCC); Generalized anxiety disorder (CMS/HCC); Primary insomnia; Fibromyalgia Start: 07-14-2024 End: 07-14-2024 ambulatory JARON MCKEON Not Available Start: 06-23-2024 End: 06-23-2024 Refill Keren Kemp [facility] Comment on above: Primary insomnia (Pr imary Dx) Start: 04-13-2024 End: 04-13-2024 ambulatory JARON MCKEON Not Available Start: 01-15-2024 Patient encounter procedure Keren Kemp [facility] Start: 01-15-2023 End: 01-16-[address] JARON MCKEON Facility:[facility]1 Start: 08-07-2022 End: 08-08-[address] RASHID CANTRELL Facility:[facility] Start: 07-18-2022 End: 07-19-[address] JARON MCKEON Facility:[facility] Start: 04-16-2022 End: 04-17-[address] JARON MCKEON Facility:[facility] Start: 01-18-2022 End: 01-19-[address] RASHID CANTRELL Facility:[facility] Start: 06-04-2018 End: 06-04-2018 Patient encounter ELENITA CHENG [facility] Start: 04-30-2018 End: 04-30-2018 Patient encounter ELENITA CHENG [facility] Start: 09-11-2017 End: 09-11-2017 Patient encounter ELENITA CHENG [facility] Start: 09-01-2017 Ambulatory ELENITA CHENG [facility] Start: 08-21-2017 End: 08-21-2017 Patient encounter ELENITA CHENG [facility] Procedures Date Procedure Procedure Detail Performing Clinician Start: 01-12-2025 Mammography Jaron landin MD Work Phone: Start: 12-03-2024 MM TOMOSYNTHESIS SCR EENING BI Jaorn Mckeon MD Work Phone: Start: 12-03-2024 Mammography Jaron landin MD Work Phone: Start: 11-09-2024 MLR HEMOGLOBIN A1C Jaron Mckeon MD Work Phone: Start: 07-14-2024 MLR HEMOGLOBIN A1C Jaron Mckeon MD Work Phone: Start: 09-06-2023 Mammography Keren jimenez Start: 05-13-2015 Colonoscopy Keren jimenez Plan of Treatment Date Care Activity Detail Author Start: 01-12-2026 Screening for malignant neoplasm of breast Mammogram [facility] Start: 12-03-2025 Screening for malignant neoplasm of breast Mammogram [facility] Start: 05-18-2025 End: 05-18-2025 Patient encounter procedure 05/18/2025 1:30 PM EDT Office Visit [facility] [address] [place] [phone] Jaron Mckeon MD [address] [place] [phone] [facility] Start: 05-13-2025 Screening for malignant neoplasm of colon [facility] Start: 05-12-2025 Hemoglobin A1c measurement Diabetes: Hemoglobin A1C [facility] Start: 05-03-2025 Influenza vaccination Influenz a Vaccine (Season Ended) [facility] Start: 04-26-2025 Glaucoma screening Diabetes: R etinopathy Screening [facility] Start: 02-15-2025 End: 02-15-2026 Hemoglobin A1c/Hemoglobin.total in Blood Hemoglobin A1c Lab Routine Type 2 diabetes mellitus with hyperglycemia, without long-term current use of insulin (HCC) Expected: 02/15/2025 (Approximate), Expires: 02/15/2026 [facility] Work Phone: Comment on above: Expected: 02/15/2025 (Approximate), Expires: 02/15/2026 Start: 02-15-2025 End: 02-15-2025 Patient encounter procedure [facility] Comment on above: Arrived Start: 01-14-2025 Urine screening for protein Diabetes: Urine Protein Screening [facility] Start: 12-03-2024 End: 02-02-2026 DBT Breast - left diagnostic Left diagnostic mammogram with tomosynthesis Imaging Routine Abnormal mammogram of left breast Expected: 12/03/2024, Expires: 02/02/2026 [facility] Work Phone: Comment on above: Expected: 12/03/2024 , Expires: 02/02/2026 Start: 12-03-2024 End: 02-02-2026 US Breast - left limited Left breast US limited Imaging Routine Abnormal mammogram of left breast Expected: 12/03/2024, Expires: 02/02/2026 [facility] Comment on above: Expected: 12/03/2024 , Expires: 02/02/2026 Start: 11-16-2024 End: 11-16-2024 Patient encounter procedure 11/16/2024 1:45 PM EDT Office Visit [facility] [address] [place] [phone] Jaron Mckeon MD [address] [place] [phone] [facility] Start: 10-14-2024 End: 10-14-2025 Hemoglobin A1c/Hemoglobin.total in Blood Hemoglobin A1c Lab Routine Type 2 diabetes mellitus with hyperglycemia, without long-term current use of insulin ([facility]) Expected: 10/14/2024 (Approximate), Expires: 10/14/2025 [facility] Work Phone: Comment on above: Expected: 10/14/2024 (Approximate), Expires: 10/14/2025 Start: 10-14-2024 End: 10-14-2024 Patient encounter procedure [facility] Comment on above: Arrived Start: 09-06-2024 Screening for malignant neoplasm of breast Mammogram [facility] Start: 07-17-2024 Hemoglobin A1c measurement Diabetes: Hemoglobin A1C [facility] Start: 07-14-2024 End: 07-14-2025 Hemoglobin A1c/Hemoglobin.total in Blood Hemoglobin A1c Lab Routine Type 2 diabetes mellitus with hyperglycemia, without long-term current use of insulin ([facility]) Expected: 07/14/2024 (Approximate), Expires: 07/14/2025 [facility] Work Phone: Comment on above: Expected: 07/14/2024 (Approximate), Expires: 07/14/2025 Start: 07-14-2024 End: 07-14-2024 Patient encounter procedure 07/14/2024 1:45 PM EST Office Visit [facility] [address] [place] [phone] Jaron Mckeon MD [address] [place] [phone] [facility] Start: 05-03-2024 Influenza vaccination Influenza Vacc ine (#1) [facility] Start: 1991 Screening for malignant neoplasm of cervix [facility] Start: 1982 Screening for malignant neoplasm of cervix Pap Smear [facility] Start: 1961 Screening for malignant neoplasm of colon [facility] Immunizations Immunization Date Immunization Notes Care Provider Fa doug 06-19-2005 influenza virus vacc ine, unspecified formulation Keren Kemp [facility] Payers Date Payer Category [id number] 2024 Unknown [id number] 2023 Private Health Insurance [employer] [id number] 2023 Unknown [id number] 2015 Private Health Insurance [id number] 1961 Unknown [id number]. 593 1961 Unknown [id number] [id number]. 593 1961 Unknown [id number] [id number]. 593 1961 Unknown [id number] [id number]. 593 1961 Unknown [id number] [id number]. 593 1961 Unknown [id number] [id number]. 1286 1961 Unknown [id number] [id number]. 1286 1961 Unknown [id number] 2.16.840.1.189428.3.579.2. 1259 1961 Unknown [id number] 2.16.840.1.187486.3.579.2. 1259 1961 Unknown [id number] 2.16.840.1.473160.3.579.2. 1259 1961 Unknown [id number] [id number]. 1259 1961 Unknown [id number] [id number]. 1259 1959 Unknown [id number] Social History Date Type Detail Facility Start: 01-15-2024 Tobacco smoking status WYIS Never sm oked tobacco [facility] Start: 01-15-2024 Tobacco use and exposure Smoke less tobacco non-user [facility] Start: 01-08-2024 End: 02-15-2025 History of Social function [facility] Start: 01-08-2024 End: 02-15-2025 Social connection and isolation panel [facility] How often do you get together with friends or relatives? Patient declined [facility] Do you belong to any clubs or organizations such as latter day groups, unions, fraternal or athletic groups, or school groups? No [facility] Are you now , , , , never or living with a partner? [facility] How often to you hav e a drink containing alcohol? Monthly or less [facility] How often do you hav e 6 or more drinks on 1 occasion? Never [facility] Do you feel stress - tense, restless, nervous, or anxious, or unable to sleep at night because your mind is troubled all the time - these days [OSQ] Very much [facility] (I/We) worried wheth er (my/our) food would run out before (I/we) got money to buy more. Never true [facility] Start: 1960 Sex assigned at Not on file [facility] Start: 01-08-2024 Gender identity Identifies as female gender (finding) [facility] Clinical Notes 01-18-2022 to 02-15-2025 Jaron Mckeon MD - 02/15/2025 3:53 PM Britta Mckeon MD - 02/15/2025 3:53 PM Britta Mcekon MD - 02/15/2025 3:53 PM Britta Mckeon MD - 02/15/2025 3:52 PM EDT Note Date & Type Note Facility 02-15-2025 History of Presen t illness Narrative Associated Problem(s): Type 2 diabetes mellitus with hyperglycemia, without long-term current use of insulin (HCC) BS improved and due for A1C. Increase ozempic. Associated Problem(s): Major depressive disorder, recurrent, moderate (HCC) Symptoms much worse and increase abilify. Continue effexor and refer for counseling. Associated Problem(s): Generalized anxiety disorder Symptoms much worse and increase abilify. Continue effexor and refer for counseling. Associated Problem(s): Essential hypertension, benign BP controlled and monitor PRN. Images from the original note were not included. Subjective Patient ID: Lance Valdez is a 64 y.o. female who presents for Follow-up (3m) and Depression (Depression is worse). Follow up DM, HTN, depression, and anxiety. BS variable and ranges 115-193. Due for A1C. Tries to eat well and stick to ADA diet but reports occasional splurges. Denies signs of elevated BS such as polyuria, polyphagia or polydipsia. Checking BP PRN and typically controlled. BP elevated today. Taking medication daily and tolerating without side effects. Mood much worse abilify. Went to [facility] last month and stayed at same place she used to go on vacation with . Depression much worse since and down, sad, and crying. Not want to do things or be around others. Not want to leave house. Increased anxiety. Nervous and worry all the time. Stressed out and overwhelmed. Thought racing and hard to clear mind. Using xanax PRN and mild relief. DepressionPatient is not experiencing: palpitations and shortness of breath. Review of Systems Respiratory: Negative for cough, shortness of breath and wheezing. Cardiovascular: Negative for chest pain and palpitations. Gastrointestinal: Negative for abdominal pain, diarrhea, nausea and vomiting. Genitourinary: Negative for dysuria. Psychiatric/Behavioral: Positive for depression. Objective Physical Exam Constitutional: General: She is not in acute distress. Appearance: Normal appearance. HENT: Head: Normocephalic. Right Ear: Tympanic membrane normal. Left Ear: Tympanic membrane normal. Eyes: Extraocular Movements: Extraocular movements intact. Pupils: Pupils are equal, round, and reactive to light. Cardiovascular: Rate and Rhythm: Normal rate and regular rhythm. Heart sounds: No murmur heard. No friction rub. No gallop. Pulmonary: Effort: Pulmonary effort is normal. Breath sounds: Normal breath sounds. No wheezing, rhonchi or rales. Abdominal: General: Bowel sounds are normal. There is no distension. Palpations: Abdomen is soft. Tenderness: There is no abdominal tenderness. There is no guarding or rebound. Musculoskeletal: Cervical back: Neck supple. Right lower leg: No edema. Left lower leg: No edema. Neurological: Mental Status: She is alert. Assessment/Plan Problem List Items Addressed This Visit Essential hypertension, benign BP controlled and monitor PRN. Generalized anxiety disorder Symptoms much worse and increase abilify. Continue effexor and refer for counseling. Major depressive disorder, recurrent, moderate (HCC) Symptoms much worse and increase abilify. Continue effexor and refer for counseling. Relevant Medications ARIPiprazole (Abilify) 15 MG tablet Other Relevant Orders Ambulatory referral to Psychology Type 2 diabetes mellitus with hyperglycemia, without long-term current use of insulin (HCC) - Primary BS improved and due for A1C. Increase ozempic. Relevant Medications glipiZIDE (Glucotrol) 10 MG tablet Semaglutide, 2 MG/DOSE, (Ozempic, 2 MG/DOSE,) 8 MG/3ML solution pen-injector Other Relevant Orders Hemoglobin A1c documented in this encounter [facility] 10-14-2024 History of Presen t illness Narrative Associated Problem(s): Type 2 diabetes mellitus with hyperglycemia, without long-term current use of insulin (CMS/HCC) BS variable and due for A1C. Continue medication. Stick to ADA diet and limit carbs. Associated Problem(s): Primary insomnia Sleeping okay with trazodone and continue. Associated Problem(s): Major depressive disorder, recurrent, moderate (CMS/HCC) Symptoms unchanged and add abilify to effexor. Associated Problem(s): Generalized anxiety disorder (CMS/HCC) Symptoms unchanged and add abilify to effexor. Use xanax PRN. Associated Problem(s): Fibromyalgia Pain stable and continue ultram and zanaflex PRN. Associated Problem(s): Essential hypertension, benign (CMS/HCC) BP controlled and monitor PRN. Images from the original note were not included. Subjective Patient ID: Lance Valdez is a 64 y.o. female who presents for Fatigue and Follow-up (3m). Follow up DM, HTN, depression, anxiety, insomnia, and arthritis. Patient not doing well today. Reports BS remains variable and 100-230. Tries to eat well and stick to ADA diet but reports occasional splurges. Recently eating more. Denies signs of elevated BS such as polyuria, polyphagia or polydipsia. Checking BP PRN and typically controlled. BP normal today. Taking medication daily and tolerating without side effects. Depression unchanged and still adjusting after of . Still symptoms and at times down, sad, and no motivation. Still crying on occasion and not want to be around others. Not doing things around house and doesn't want to leave house. Anxiety stable. Not as stressed out or overwhelmed. Not as nervous or worry as much. Not as mckinney or irritable. Using xanax PRN and helps. Sleeping well with trazodone. Typically able to fall asleep but only sleeps few hours. Not rested in am and tired all day. Pain stable. Occasional pain and stiffness but tolerable. Stiff in am and if sit prolonged. Frequent popping and clicking in knees. Ultram helps. Fatigue Associated symptoms include fatigue. Pertinent negatives include no abdominal pain, chest pain, coughing, nausea or vomiting. Review of Systems Constitutional: Positive for fatigue. Respiratory: Negative for cough, shortness of breath and wheezing. Cardiovascular: Negative for chest pain and palpitations. Gastrointestinal: Negative for abdominal pain, diarrhea, nausea and vomiting. Genitourinary: Negative for dysuria. Objective Physical Exam Constitutional: General: She is not in acute distress. Appearance: Normal appearance. HENT: Head: Normocephalic. Right Ear: Tympanic membrane normal. Left Ear: Tympanic membrane normal. Eyes: Extraocular Movements: Extraocular movements intact. Pupils: Pupils are equal, round, and reactive to light. Cardiovascular: Rate and Rhythm: Normal rate and regular rhythm. Heart sounds: No murmur heard. No friction rub. No gallop. Pulmonary: Effort: Pulmonary effort is normal. Breath sounds: Normal breath sounds. No wheezing, rhonchi or rales. Abdominal: General: Bowel sounds are normal. There is no distension. Palpations: Abdomen is soft. Tenderness: There is no abdominal tenderness. There is no guarding or rebound. Musculoskeletal: Cervical back: Neck supple. Right lower leg: No edema. Left lower leg: No edema. Neurological: Mental Status: She is alert. Assessment/Plan Problem List Items Addressed This Visit Essential hypertension, benign (CMS/HCC) BP controlled and monitor PRN. Relevant Medications losartan (Cozaar) 25 MG tablet metoprolol tartrate (Lopressor) 100 MG tablet Fibromyalgia Pain stable and continue ultram and zanaflex PRN. Relevant Medications tiZANidine (Zanaflex) 4 MG tablet Generalized anxiety disorder (CMS/HCC) Symptoms unchanged and add abilify to effexor. Use xanax PRN. Major depressive disorder, recurrent, moderate (CMS/HCC) Symptoms unchanged and add abilify to effexor. Relevant Medications ARIPiprazole (Abilify) 5 MG tablet Type 2 diabetes mellitus with hyperglycemia, without long-term current use of insulin (CMS/HCC) - Primary BS variable and due for A1C. Continue medication. Stick to ADA diet and limit carbs. Relevant Orders Hemoglobin A1c Primary insomnia Sleeping okay with trazodone and continue. Relevant Medications traZODone (Desyrel) 150 MG tablet documented in this encounter [facility] 07-14-2024 History of Presen t illness Narrative Associated Problem(s): Type 2 diabetes mellitus with hyperglycemia, without long-term current use of insulin (CMS/HCC) BS variable and due for A1C. Continue medication. Stick to ADA diet and limit carbs. Associated Problem(s): Primary insomnia Not sleeping well with trazodone and stop. Try ambien. Associated Problem(s): Major depressive disorder, recurrent, moderate (CMS/HCC) Symptoms unchanged but overall improving and continue medication. Associated Problem(s): Generalized anxiety disorder (CMS/HCC) Symptoms unchanged but overall improving and continue medication. Use xanax PRN. Associated Problem(s): Essential hypertension, benign (CMS/HCC) BP controlled and monitor PRN. Associated Problem(s): Fibromyalgia Pain worse with added stress. Continue ultram and zanaflex PRN. Images from the original note were not included. Subjective Patient ID: Lance Valdez is a 64 y.o. female who presents for Follow-up (3 m). Follow up DM, HTN, depression, anxiety, insomnia, and arthritis. Reports BS remains elevated and 120-180. Tries to eat well and stick to ADA diet but reports occasional splurges. Recently eating more. Denies signs of elevated BS such as polyuria, polyphagia or polydipsia. Checking BP PRN and typically controlled. BP normal today. Taking medication daily and tolerating without side effects. Depression unchanged and still adjusting to of . Still symptoms and at times down, sad, and no motivation. Still crying on occasion and not want to be around others. Overall feels like functioning okay. Anxiety stable. Not as stressed out or overwhelmed. Not as nervous or worry as much. Not as mckinney or irritable. Using xanax PRN and helps. Not sleeping well. Lay in bed and not able to clear mind to fall asleep. Trazodone not helping and only sleeps few hours. Not rested in am and tired all day. Increased joint pain and stiffness. Stiff in am and if sit prolonged. Frequent popping and clicking in knees. Ultram helps. Review of Systems Respiratory: Negative for cough, shortness of breath and wheezing. Cardiovascular: Negative for chest pain and palpitations. Gastrointestinal: Negative for abdominal pain, diarrhea, nausea and vomiting. Genitourinary: Negative for dysuria. Objective Physical Exam Constitutional: General: She is not in acute distress. Appearance: Normal appearance. HENT: Head: Normocephalic. Right Ear: Tympanic membrane normal. Left Ear: Tympanic membrane normal. Eyes: Extraocular Movements: Extraocular movements intact. Pupils: Pupils are equal, round, and reactive to light. Cardiovascular: Rate and Rhythm: Normal rate and regular rhythm. Heart sounds: No murmur heard. No friction rub. No gallop. Pulmonary: Effort: Pulmonary effort is normal. Breath sounds: Normal breath sounds. No wheezing, rhonchi or rales. Abdominal: General: Bowel sounds are normal. There is no distension. Palpations: Abdomen is soft. Tenderness: There is no abdominal tenderness. There is no guarding or rebound. Musculoskeletal: Cervical back: Neck supple. Right lower leg: No edema. Left lower leg: No edema. Neurological: Mental Status: She is alert. Assessment/Plan Problem List Items Addressed This Visit Essential hypertension, benign (CMS/HCC) BP controlled and monitor PRN. Fibromyalgia Pain worse with added stress. Continue ultram and zanaflex PRN. Generalized anxiety disorder (CMS/HCC) Symptoms unchanged but overall improving and continue medication. Use xanax PRN. Major depressive disorder, recurrent, moderate (CMS/HCC) Symptoms unchanged but overall improving and continue medication. Type 2 diabetes mellitus with hyperglycemia, without long-term current use of insulin (CMS/HCC) - Primary BS variable and due for A1C. Continue medication. Stick to ADA diet and limit carbs. Relevant Orders Hemoglobin A1c Primary insomnia Not sleeping well with trazodone and stop. Try ambien. Relevant Medications zolpidem (Ambien) 5 MG tablet documented in this encounter [facility] 01-18-2022 Note PROCEDURE: XR FOOT L T MIN 3 VIEWS COMPARISON: 09/16/2019 HISTORY: Pain in left foot FINDINGS: BONES:No fracture, acute abnormality, or significant arthropathy. SOFT TISSUES:Negative. No visible soft tissue swelling. EFFUSION:None visible. OTHER: Negative. IMPRESSION: No acute fracture Electronically authenticated by: RASHID CANTRELL Date: 2022-01-18 10:50 [facility] Evaluation note Diagnosis Type 2 diabetes mellitus with hyperglycemia, without long-term current use of insulin (CMS/HCC)- Primary Essential hypertension, benign (CMS/HCC) Essential hypertension, benign Major depressive disorder, recurrent, moderate (CMS/HCC) Major depressive disorder, recurrent episode, moderate Generalized anxiety disorder (CMS/HCC) Generalized anxiety disorder Primary insomnia Persistent disorder of initiating or maintaining sleep Fibromyalgia Unspecified myalgia and myositis Annual physical exam Routine general medical examination at a health care facility Type 2 diabetes mellitus with hyperglycemia, without long-term current use of insulin (CMS/HCC)- Primary Essential hypertension, benign (CMS/HCC) Essential hypertension, benign Major depressive disorder, recurrent, moderate (CMS/HCC) Major depressive disorder, recurrent episode, moderate Generalized anxiety disorder (CMS/HCC) Generalized anxiety disorder Type 2 diabetes mellitus with hyperglycemia, without long-term current use of insulin (CMS/HCC)- Primary Essential hypertension, benign (CMS/HCC) Essential hypertension, benign Major depressive disorder, recurrent, moderate (CMS/HCC) Major depressive disorder, recurrent episode, moderate Generalized anxiety disorder (CMS/HCC) Generalized anxiety disorder Primary insomnia Persistent disorder of initiating or maintaining sleep Bilateral primary osteoarthritis of knee Primary insomnia- Primary Persistent disorder of initiating or maintaining sleep documented in this encounter [facility] note* Diagnosis Type 2 diabetes mellitus with hyperglycemia, without long-term current use of insulin (CMS/HCC)- Primary Essential hypertension, benign (CMS/HCC) Essential hypertension, benign Major depressive disorder, recurrent, moderate (CMS/HCC) Major depressive disorder, recurrent episode, moderate Generalized anxiety disorder (CMS/HCC) Generalized anxiety disorder Primary insomnia Persistent disorder of initiating or maintaining sleep Fibromyalgia Unspecified myalgia and myositis Annual physical exam Routine general medical examination at a health care facility Type 2 diabetes mellitus with hyperglycemia, without long-term current use of insulin (CMS/HCC)- Primary Essential hypertension, benign (CMS/HCC) Essential hypertension, benign Major depressive disorder, recurrent, moderate (CMS/HCC) Major depressive disorder, recurrent episode, moderate Generalized anxiety disorder (CMS/HCC) Generalized anxiety disorder Type 2 diabetes mellitus with hyperglycemia, without long-term current use of insulin (CMS/HCC)- Primary Essential hypertension, benign (CMS/HCC) Essential hypertension, benign Major depressive disorder, recurrent, moderate (CMS/HCC) Major depressive disorder, recurrent episode, moderate Generalized anxiety disorder (CMS/HCC) Generalized anxiety disorder Primary insomnia Persistent disorder of initiating or maintaining sleep Bilateral primary osteoarthritis of knee Type 2 diabetes mellitus with hyperglycemia, without long-term current use of insulin (CMS/HCC)- Primary Essential hypertension, benign (CMS/HCC) Essential hypertension, benign Major depressive disorder, recurrent, moderate (CMS/HCC) Major depressive disorder, recurrent episode, moderate Generalized anxiety disorder (CMS/HCC) Generalized anxiety disorder Primary insomnia Persistent disorder of initiating or maintaining sleep Fibromyalgia Unspecified myalgia and myositis documented in this encounter [facility]* Diagnosis Type 2 diabetes mellitus with hyperglycemia, without long-term current use of insulin (CMS/HCC)- Primary Essential hypertension, benign (CMS/HCC) Essential hypertension, benign Major depressive disorder, recurrent, moderate (CMS/HCC) Major depressive disorder, recurrent episode, moderate Generalized anxiety disorder (CMS/HCC) Generalized anxiety disorder Primary insomnia Persistent disorder of initiating or maintaining sleep Fibromyalgia Unspecified myalgia and myositis Annual physical exam Routine general medical examination at a health care facility Type 2 diabetes mellitus with hyperglycemia, without long-term current use of insulin (CMS/HCC)- Primary Essential hypertension, benign (CMS/HCC) Essential hypertension, benign Major depressive disorder, recurrent, moderate (CMS/HCC) Major depressive disorder, recurrent episode, moderate Generalized anxiety disorder (CMS/HCC) Generalized anxiety disorder Type 2 diabetes mellitus with hyperglycemia, without long-term current use of insulin (CMS/HCC)- Primary Essential hypertension, benign (CMS/HCC) Essential hypertension, benign Major depressive disorder, recurrent, moderate (CMS/HCC) Major depressive disorder, recurrent episode, moderate Generalized anxiety disorder (CMS/HCC) Generalized anxiety disorder Primary insomnia Persistent disorder of initiating or maintaining sleep Bilateral primary osteoarthritis of knee Type 2 diabetes mellitus with hyperglycemia, without long-term current use of insulin (CMS/HCC)- Primary Essential hypertension, benign (CMS/HCC) Essential hypertension, benign Major depressive disorder, recurrent, moderate (CMS/HCC) Major depressive disorder, recurrent episode, moderate Generalized anxiety disorder (CMS/HCC) Generalized anxiety disorder Primary insomnia Persistent disorder of initiating or maintaining sleep Fibromyalgia Unspecified myalgia and myositis Type 2 diabetes mellitus with hyperglycemia, without long-term current use of insulin (CMS/HCC)- Primary documented [facility]* Diagnosis Type 2 diabetes mellitus with hyperglycemia, without long-term current use of insulin (CMS/HCC)- Primary Essential hypertension, benign (CMS/HCC) Essential hypertension, benign Major depressive disorder, recurrent, moderate (CMS/HCC) Major depressive disorder, recurrent episode, moderate Generalized anxiety disorder (CMS/HCC) Generalized anxiety disorder Primary insomnia Persistent disorder of initiating or maintaining sleep Fibromyalgia Unspecified myalgia and myositis Annual physical exam Routine general medical examination at a health care facility Type 2 diabetes mellitus with hyperglycemia, without long-term current use of insulin (CMS/HCC)- Primary Essential hypertension, benign (CMS/HCC) Essential hypertension, benign Major depressive disorder, recurrent, moderate (CMS/HCC) Major depressive disorder, recurrent episode, moderate Generalized anxiety disorder (CMS/HCC) Generalized anxiety disorder Type 2 diabetes mellitus with hyperglycemia, without long-term current use of insulin (CMS/HCC)- Primary Essential hypertension, benign (CMS/HCC) Essential hypertension, benign Major depressive disorder, recurrent, moderate (CMS/HCC) Major depressive disorder, recurrent episode, moderate Generalized anxiety disorder (CMS/HCC) Generalized anxiety disorder Primary insomnia Persistent disorder of initiating or maintaining sleep Bilateral primary osteoarthritis of knee Type 2 diabetes mellitus with hyperglycemia, without long-term current use of insulin (CMS/HCC)- Primary Essential hypertension, benign (CMS/HCC) Essential hypertension, benign Major depressive disorder, recurrent, moderate (CMS/HCC) Major depressive disorder, recurrent episode, moderate Generalized anxiety disorder (CMS/HCC) Generalized anxiety disorder Primary insomnia Persistent disorder of initiating or maintaining sleep Fibromyalgia Unspecified myalgia and myositis Primary osteoarthritis of right knee- Primary Primary insomnia Persistent disorder of initiating or maintaining sleep documented in this [facility]* Diagnosis Type 2 diabetes mellitus with hyperglycemia, without long-term current use of insulin (CMS/HCC)- Primary Essential hypertension, benign (CMS/HCC) Essential hypertension, benign Major depressive disorder, recurrent, moderate (CMS/HCC) Major depressive disorder, recurrent episode, moderate Generalized anxiety disorder (CMS/HCC) Generalized anxiety disorder Primary insomnia Persistent disorder of initiating or maintaining sleep Fibromyalgia Unspecified myalgia and myositis Annual physical exam Routine general medical examination at a [facility] facility Type 2 diabetes mellitus with hyperglycemia, without long-term current use of insulin (CMS/HCC)- Primary Essential hypertension, benign (CMS/HCC) Essential hypertension, benign Major depressive disorder, recurrent, moderate (CMS/HCC) Major depressive disorder, recurrent episode, moderate Generalized anxiety disorder (CMS/HCC) Generalized anxiety disorder Type 2 diabetes mellitus with hyperglycemia, without long-term current use of insulin (CMS/HCC)- Primary Essential hypertension, benign (CMS/HCC) Essential hypertension, benign Major depressive disorder, recurrent, moderate (CMS/HCC) Major depressive disorder, recurrent episode, moderate Generalized anxiety disorder (CMS/HCC) Generalized anxiety disorder Primary insomnia Persistent disorder of initiating or maintaining sleep Bilateral primary osteoarthritis of knee Type 2 diabetes mellitus with hyperglycemia, without long-term current use of insulin (CMS/HCC)- Primary Essential hypertension, benign (CMS/HCC) Essential hypertension, benign Major depressive disorder, recurrent, moderate (CMS/HCC) Major depressive disorder, recurrent episode, moderate Generalized anxiety disorder (CMS/HCC) Generalized anxiety disorder Primary insomnia Persistent disorder of initiating or maintaining sleep Fibromyalgia Unspecified myalgia and myositis Type 2 diabetes mellitus with hyperglycemia, without long-term current use of insulin (CMS/HCC)- Primary Essential hypertension, benign (CMS/HCC) Essential hypertension, benign Major depressive disorder, recurrent, moderate (CMS/HCC) Major depressive disorder, recurrent episode, moderate Generalized anxiety disorder (CMS/HCC) Generalized anxiety disorder Primary insomnia Persistent disorder of initiating or maintaining sleep Fibromyalgia Unspecified myalgia and myositis documented in this encounter [facility]* Diagnosis Type 2 diabetes mellitus with hyperglycemia, without long-term current use of insulin (CMS/HCC)- Primary Essential hypertension, benign (CMS/HCC) Essential hypertension, benign Major depressive disorder, recurrent, moderate (CMS/HCC) Major depressive disorder, recurrent episode, moderate Generalized anxiety disorder (CMS/HCC) Generalized anxiety disorder Primary insomnia Persistent disorder of initiating or maintaining sleep Fibromyalgia Unspecified myalgia and myositis Annual physical exam Routine general medical examination at a [facility] care facility Type 2 diabetes mellitus with hyperglycemia, without long-term current use of insulin (CMS/HCC)- Primary Essential hypertension, benign (CMS/HCC) Essential hypertension, benign Major depressive disorder, recurrent, moderate (CMS/HCC) Major depressive disorder, recurrent episode, moderate Generalized anxiety disorder (CMS/HCC) Generalized anxiety disorder Type 2 diabetes mellitus with hyperglycemia, without long-term current use of insulin (CMS/HCC)- Primary Essential hypertension, benign (CMS/HCC) Essential hypertension, benign Major depressive disorder, recurrent, moderate (CMS/HCC) Major depressive disorder, recurrent episode, moderate Generalized anxiety disorder (CMS/HCC) Generalized anxiety disorder Primary insomnia Persistent disorder of initiating or maintaining sleep Bilateral primary osteoarthritis of knee Type 2 diabetes mellitus with hyperglycemia, without long-term current use of insulin (CMS/HCC)- Primary Essential hypertension, benign (CMS/HCC) Essential hypertension, benign Major depressive disorder, recurrent, moderate (CMS/HCC) Major depressive disorder, recurrent episode, moderate Generalized anxiety disorder (CMS/HCC) Generalized anxiety disorder Primary insomnia Persistent disorder of initiating or maintaining sleep Fibromyalgia Unspecified myalgia and myositis Type 2 diabetes mellitus with hyperglycemia, without long-term current use of insulin (CMS/HCC)- Primary Essential hypertension, benign (CMS/HCC) Essential hypertension, benign Major depressive disorder, recurrent, moderate (CMS/HCC) Major depressive disorder, recurrent episode, moderate Generalized anxiety disorder (CMS/HCC) Generalized anxiety disorder Primary insomnia Persistent disorder of initiating or maintaining sleep Fibromyalgia Unspecified myalgia and myositis Type 2 diabetes mellitus with hyperglycemia, without long-term current use of insulin (CMS/HCC)- Primary Essential hypertension, benign (CMS/HCC) Essential hypertension, benign Major depressive disorder, recurrent, moderate (CMS/HCC) Major depressive disorder, recurrent episode, moderate Generalized anxiety disorder (CMS/HCC) Generalized anxiety disorder Breast cancer screening by mammogram Abnormal mammogram of left breast- Primary documented in this encounter [facility]* Diagnosis Type 2 diabetes mellitus with hyperglycemia, without long-term current use of insulin (HCC)- Primary Essential hypertension, benign Essential hypertension, benign Major depressive disorder, recurrent, moderate (HCC) Major depressive disorder, recurrent episode, moderate Generalized anxiety disorder Generalized anxiety disorder Primary insomnia Persistent disorder of initiating or maintaining sleep Fibromyalgia Unspecified myalgia and myositis Annual physical exam Routine general medical examination at a health care facility Type 2 diabetes mellitus with hyperglycemia, without long-term current use of insulin (HCC)- Primary Essential hypertension, benign Essential hypertension, benign Major depressive disorder, recurrent, moderate (HCC) Major depressive disorder, recurrent episode, moderate Generalized anxiety disorder Generalized anxiety disorder Type 2 diabetes mellitus with hyperglycemia, without long-term current use of insulin (HCC)- Primary Essential hypertension, benign Essential hypertension, benign Major depressive disorder, recurrent, moderate (HCC) Major depressive disorder, recurrent episode, moderate Generalized anxiety disorder Generalized anxiety disorder Primary insomnia Persistent disorder of initiating or maintaining sleep Bilateral primary osteoarthritis of knee Type 2 diabetes mellitus with hyperglycemia, without long-term current use of insulin (HCC)- Primary Essential hypertension, benign Essential hypertension, benign Major depressive disorder, recurrent, moderate (HCC) Major depressive disorder, recurrent episode, moderate Generalized anxiety disorder Generalized anxiety disorder Primary insomnia Persistent disorder of initiating or maintaining sleep Fibromyalgia Unspecified myalgia and myositis Type 2 diabetes mellitus with hyperglycemia, without long-term current use of insulin (HCC)- Primary Essential hypertension, benign Essential hypertension, benign Major depressive disorder, recurrent, moderate (HCC) Major depressive disorder, recurrent episode, moderate Generalized anxiety disorder Generalized anxiety disorder Primary insomnia Persistent disorder of initiating or maintaining sleep Fibromyalgia Unspecified myalgia and myositis Type 2 diabetes mellitus with hyperglycemia, without long-term current use of insulin (HCC)- Primary Essential hypertension, benign Essential hypertension, benign Major depressive disorder, recurrent, moderate (HCC) Major depressive disorder, recurrent episode, moderate Generalized anxiety disorder Generalized anxiety disorder Breast cancer screening by mammogram Type 2 diabetes mellitus with hyperglycemia, without long-term current use of insulin (HCC)- Primary Essential hypertension, benign Essential hypertension, benign Major depressive disorder, recurrent, moderate (HCC) Major depressive disorder, recurrent episode, moderate Generalized anxiety disorder Generalized anxiety disorder documented in this encounter [facility] Summary Purpose Family History No Family History [...] section and content) DATE CREATED AUTHOR 02/25/2018 [facility] DATE CREATED AUTHOR AUTHOR'S ORGANIZ ATION 07/03/2018 [facility] DATE CREATED AUTHOR AUTHOR'S ORGANIZ ATION 07/02/2019 [facility] DATE CREATED AUTHOR AUTHOR'S ORGANIZ ATION 01/16/2023 [facility] DATE CREATED AUTHOR AUTHOR'S ORGANIZ ATION 01/13/2025 [facility] DATE CREATED AUTHOR AUTHOR'S ORGANIZ ATION 01/14/2025 [facility] DATE CREATED AUTHOR AUTHOR'S ORGANIZ ATION 02/17/2025 [facility] Reason for Visit (unrecogniz ed section and content) Reason Onset Date Comments Med Refill 06/23/2024 Reason Comments Follow-up 3 m Reason Onset Date Comments Med Refill 08/20/2024 Reason Comments Fatigue Follow-up 3m Reason Comments Follow-up 3m Depression Depression is worse Care Teams (unrecognized sec tion and content) [employer] Relationship Specialty Start Date End Date Jaron Mckeon MD [address] [place] [id number] PCP - General Family Medicine 01/15/24 Jaron Mckeon MD [address] [place] [phone] PCP - [facility] [employer] 09/24/23 09/01/99 [employer] Relationship Specialty Start Date End Date Jaron Mckeon MD [address] [place] [address] PCP - General Family Medicine 01/15/24 Jaron Mckeon MD [address] [place] [phone] PCP - [facility] [employer] 09/24/23 09/01/99 [employer] Relationship Specialty Start Date End Date Jaron Mckeon MD [address] [place] [address] PCP - General Family Medicine 01/15/24 Jaron Mckeon MD [address] [place] [address] PCP - [facility] [employer] 09/24/23 09/01/99 [employer] Relationship Specialty Start Date End Date Jaron Mckeon MD [address] [place] [phone] PCP - General Family Medicine 01/15/24 Jaron Mckeon MD [address] [place] [address] PCP - [facility] [employer] 09/24/23 09/01/99 [employer] Relationship Specialty Start Date End Date Jaron Mckeon MD [address] [place] [phone] PCP - General Family Medicine 01/15/24 Jaron Mckeon MD [address] [place] [address] PCP - [facility] [employer] 09/24/23 09/01/99 [employer] Relationship Specialty Start Date End Date Jaron Mckeon MD [address] [place] [address] PCP - General Family Medicine 01/15/24 Jaron Mckeon MD [address] [place] [phone] PCP - [facility] [employer] 09/24/23 09/01/99 [employer] Relationship Specialty Start Date End Date Jaron Mckeon MD [address] [place] [phone] PCP - General Family Medicine 01/15/24 Jaron Mckeon MD [address] [place] [address] PCP - [facility] [employer] 09/24/23 09/01/99 [employer] Relationship Specialty Start Date End Date Jaron Mckeon MD [address] [place] [phone] PCP - General Family Medicine 01/15/24 Jaron Mckeon MD [address] [place] [phone] PCP - [facility] [employer] 09/24/23 09/01/99 [employer] Relationship Specialty Start Date End Date Jaron Mckeon MD [address] [place] [address] PCP - General Family Medicine 01/15/24 [employer] Relationship Specialty Start Date End Date Jaron Mckeon MD [address] [place] [phone] PCP - General Family Medicine 01/15/24 [employer] Relationship Specialty Start Date End Date Jaron Mckeon MD [address] [place] [phone] PCP - [facility] 01/15/24 [employer] Relationship Specialty Start Date End Date Jaron Mckeon MD [address] [place] [phone] PCP - [facility] 01/15/24 Jaron Mckeon MD [address] [place] [phone] PCP - [facility] 12/01/24 [employer] Relationship Specialty Start Date End Date Jaron Mckeon MD [address] [place] [phone] PCP - [facility] 01/15/24 Jaron Mckeon MD [address] [place] [phone] PCP [facility] 12/01/24 FOR RECORDS PERTAINING TO PATIENTS WHO ARE [...] BE BASED ON THE PRIMARY CLINICAL RECORDS. [employer] [facility]. provides no warranty or guarantee of the accuracy or completeness of information in this document.
== END 2025-05-14 12:00 | disposition home or self-care (01) ==
PROVIDERS: PCP Family Medicine; Visit Provider Family Medicine
DX: E11.65 Type 2 diabetes mellitus with hyperglycemia (principal)
CPT/HCPCS: 36415; 83036